=== PATIENT | female | born 1945 | race Caucasian/White ===

== ENCOUNTER 2017-12-24 14:14 | Observation (INO) | payer MEDICARE, BC ==
[~2017-12-24 14:14] MED LIST: Iopamidol 370 76% 100 ML VIAL ONE
[2017-12-24 15:10] LABS: #Lymphocytes 0.8 thou/uL (1.20-3.40); #Monocytes 0.3 thou/uL (0.11-0.59); #Neutrophils 4.2 thou/uL (1.40-6.50); %Basophils 0.8 % (0.0-1.0); %Eosinophils 0.2 % (0.0-10.0); %Lymphocytes 15.4 % (21.0-51.0); %Monocytes 6.3 % (0.0-10.0); %Neutrophils 77.3 % (42.0-75.0); Hemoglobin 12.7 g/dL (12.0-16.0); Mean Corpuscular HGB CONC 33.6 g/dL (32.0-36.0); Mean Corpuscular Volume 86.3 fl (81.0-99.0); Mean Platelet Volume 8.2 fL (7.4-10.4); Platelet Count 211 thou/uL (130-400); RBC Distribution Width 15.7 % (11.5-14.5); Red Blood Cell (RBC) Count 4.39 mill/uL (4.20-5.40); White Blood Cell (WBC) Count 5.5 thou/uL (4.8-10.8)
[2017-12-24 15:26] LABS: ALT (SGPT) 16 U/L (8-55); AST (SGOT) 17 U/L (5-34); Albumin 3.4 g/dL (3.4-4.8); Alkaline Phosphatase 42 U/L (40-150); Anion Gap 14 mmol/L (10-20); BUN (Urea Nitrogen) 13 mg/dL (9.8-20.1); Bilirubin, Total 0.8 mg/dL (0.2-1.2); Calc. Creatinine Clearance 0 mL/min (70-130); Calcium 9.5 mg/dL (7.8-10.44); Carbon Dioxide 28 mmol/L (23-31); Chloride 95 mmol/L (98-107); Estimated GFR-MDRD 82; Globulin 2.6 g/dL (2.4-3.5); Glucose 97 mg/dL (83-110); Potassium 3.3 mmol/L (3.5-5.1); Sodium 134 mmol/L (136-145)
[2017-12-24 15:28] LABS: CKMB 0.5 ng/mL (0-6.6); Troponin I Less than 0.010 ng/mL (< 0.028)
--- NOTE | 2017-12-24 16:03 | RAD ---
SEMI UPRIGH PORTABLE CHEST: History: 72-year-old female with chest pain and shortness of breath. FINDINGS: Right subclavian catheter and injection port. Bilateral pleural effusions and costophrenic angle blun ting, worse on the left side. Mid and upper visualized lungs are clear. Heart size is within the uppe r range of normal limits. IMPRESSION: Bilateral pleural effusions and costophrenic angle blunting, greater on the left side. No old films a vailable for comparison. Some minimal underlying pulmonary parenchymal changes cannot be excluded bec ause of the effusions. Depending upon concern, consider short term follow up to include upright PA an d lateral chest whenever the patient can undergo that study. POS: KETTY
--- NOTE | 2017-12-24 17:49 | CT ---
CTA OF THE CHEST WITH CONTRAST: Comparison: None. History: Intermittent chest pain for one month and shortness of breath. Technique: Multiple contiguous axial images were obtained in a CTA of the chest with contrast perform ed per pulmonary embolism protocol. 3D oblique reformats and direct coronal reformats were performed. FINDINGS: The pulmonary arteries are well opacified without filling defects to suggest pulmonary emboli. The he art is normal in size without focal cardiac abnormality. There are small to moderate bilateral pleural effusions with adjacent atelectasis. No pneumothorax is seen. No focal infiltrates or suspicious masses are seen in the lungs. Degenerative changes are seen in the spine. There is a Mediport with its tip in the superior vena cav a. There is a 2.4 cm mass in the central aspect of the spleen which is nonspecific. There is also hyp odensity of the left kidney partially visualized which may represent a cyst. There are multiple calcifications in the right kidney and a calcified mass in the right kidney which is well circumscribed. IMPRESSION: 1. No evidence of pulmonary thromboembolism. 2. Bilateral pleural effusions with adjacent atelectasis. 3. There appears to be an enhancing splenic mass. This is not completely evaluated and a CT of the ab domen and pelvis with contrast is recommended for better evaluation. This could be performed on a non -emergent outpatient basis and would need to be performed at least 24 hours after administration of I V contrast given for this examination. POS: KETTY
[2017-12-24 19:03] LABS: Troponin I Less than 0.010 ng/mL (< 0.028)
[2017-12-24 21:11] VITALS: BMI 30.3
[2017-12-24 21:56] LABS: Troponin I 0.017 ng/mL (< 0.028)
[2017-12-24] MEDS ORDERED: Ondansetron ODT 4 MG TAB PO PRN (23:25)
--- NOTE | 2017-12-25 04:29 | HP-2 ---
DATE OF ADMISSION: 12/24/2017 CODE STATUS: FULL. PRIMARY CARE PHYSICIAN: [facility], transfer from [facility] ER. ATTENDING: Garret Birmingham MD RESIDENT: Katarina Donald MD HISTORIAN: The patient and daughter. SPECIALIST: Bayron Pickett MD, Oncology CHIEF COMPLAINT: BROUSSARD/chest pain. HISTORY OF PRESENT ILLNESS: This is a 72-year-old female with a past medical history of stage III ovarian cancer who presents with a 1-month history of progressive BROUSSARD and chest pain. She describes her chest pain as substernal pressure that has been going on for approximately 1 month. She has noticed some shortness of breath with exertion and chest like pressure, also with exertion. This has been occurring more often over the past month. She also endorses a chronic cough and sputum-like production that is a yellow/white over the past several weeks. She takes Avastin and Taxotere as chemo for her stage 3 ovarian cancer. She also states that she has been concerned for possible cardiotoxicity from these medications. Her BROUSSARD has increased in number of times throughout the day, worse with exertion, and relieved by rest. She also has a history of bilateral pleural effusions. She also complains of chronic nausea and vomiting associated with chemo, not associated with her chest pressure and BROUSSARD. She also endorses that her last CA-125 was elevated and that she supposed to get an additional 1 drawn on Monday and was asking if we could draw that lab value here for her. Her last chemo was on 12/19/2017. She had a prior CT chest, abdomen, and pelvis on 10/29/2017. See below for details. In the ER, she was given aspirin 325 mg. PAST MEDICAL HISTORY: 1. Stage III ovarian cancer. 2. Hypertension. PAST SURGICAL HISTORY: 1. Hysterectomy with debulking surgery 3-1/2 years ago with colostomy, left side. 2. Tonsillectomy. ALLERGIES: 1. BENADRYL. 2. PENICILLIN. 3. ERYTHROMYCIN. 4. ADHESIVE TAPE. MEDICATIONS: 1. Avastin. 2. Taxotere. 3. Atenolol. 4. Potassium chloride. 5. Magnesium. 6. Lasix ?. SOCIAL HISTORY: Smoked for 14 years in the home. Denies alcohol and drug use. REVIEW OF SYSTEMS: General: Denies fevers or chills. HEENT: Denies vision changes or eye pain, nasal congestion or rhinorrhea. Respiratory: Endorses chronic cough with sputum production that is yellow white, nonbloody. Endorses wheezing. Endorses dyspnea on exertion and shortness of breath. Cardiovascular : Endorses chest pain/pressure. Denies palpitations or edema. Gastrointestinal: Endorses chronic nausea and vomiting. Denies diarrhea or constipation. Genitourinary: Denies incontinence, dysuria. Skin: Denies rashes or lesions. Musculoskeletal: Denies pain or tenderness. Neurologic: Denies weakness or numbness. Psychiatric: Denies anxiety or depression. PHYSICAL EXAMINATION: VITAL SIGNS: Blood pressure 118/57, pulse 79, respiratory rate 16, temperature 98.2, pulse ox 96% on room air, current weight 73 kilograms. GENERAL: Alert and oriented x4, in no apparent distress. Appropriately interactive. EYES: Pupils equal, round, and reactive to light and accommodation. Extraocular muscles are intact. ENT: Nasal mucosa and oropharynx within normal limit. NECK: Supple. No lymphadenopathy or thyromegaly. CARDIOVASCULAR: Regular rate and rhythm. No murmur, rub, or gallop. RESPIRATORY: Decreased breath sounds bilaterally in the lung bases. ABDOMEN: Soft, nontender to palpation. Left-sided colostomy bag. No masses or distention. EXTREMITIES: No clubbing or cyanosis. 1+ pitting edema. MUSCULOSKELETAL: Structure within normal limits. Tone within normal limits. NEUROLOGIC: No focal deficits. GCS 15. PSYCHIATRIC: Appropriate. LABORATORY DATA: 1. CBC: 5.5, 12.7, 37.9, 211,000. 2. CMP: 134, 3.3, 95, 28, 13.7, 97. GFR 82. 3. AST, ALT, alkaline phosphatase were 17, 16, 42. 4. Calcium, total protein, albumin were 9.5, 6, 3.4. 5. Total bilirubin 0.8. 6. Troponin negative x3. 7. CK-MB 0.5. IMAGIN. CTA of the chest, bilateral pleural effusions, no pulmonary embolus, pleural effusions with adjacent atelectasis. 2. CTA abdomen enhancing splenic mass, measuring 2.[address] chest, abdomen, and pelvis from 10/29/2017 from [facility] endorses at that time, new bilateral pleural effusions, which raises question for metastatic disease in the absence of other pulmonary parenchymal abnormalities, peritoneal stranding within the abdomen and minimal pelvic ascites. She also raised the possibility of metastatic disease, individual peritoneal implants do appear slightly smaller. The spleen mass at that time measured 2 cm. ASSESSMENT AND PLAN: This is a 72-year-old female with past medical history of stage III of ovarian cancer, presents with dyspnea on exertion and chest pain, admitted for atypical chest pain. 1. Atypical chest pain. The patient was admitted to telemetry observation. She has a heart score of 4. Due to her risk factors, we will order a pharmacological stress test in the morning and have her be n.p.o. at midnight. We will also order a TSH, lipid profile, as well as trend her troponins and we will check an echo on her in the morning due to worsening bilateral pleural effusions which were first noted on her CTA of the chest, abdomen, and pelvis done at [facility] in 10/2017. We will also check mag and phos on the patient as she can sometimes have low magnesium. 2. Bilateral pleural effusions. The patient is concerned about the medication she is taking for chemo that could be causing cardiotoxicity, adn the avastin for her chemo could be causing these pleural effusions due to possibly cardiotoxicity based on the literature. We will further evaluate the side effects of her chemotherapy medications. Differential for these bilateral pleural effusions could be malignant versus cardiac or a pulmonary etiology. Her BNP was within normal limits. As stated above, we will check an echo and consider further discussing the chemo medications with her oncologist, Dr. Pickett. We will consider a pulmonary consult/thoracentesis if the cardiac workup is negative. 3. Hypertension, controlled. We will restart the patient's home medications. 4. Hypokalemia. We will replace her potassium and restart her home meds and recheck her potassium in the morning as well as check magnesium and phosphorous. 5. Mild hyponatremia. We will continue to monitor. 6. Stage III ovarian cancer with suggested metastatic implants on prior CT from October as well as CT today with a splenic mass increasing in size. We will consult Dr. Pickett with Oncology. Of note, the patient is status post hysterectomy, oophorectomy with colostomy on the left side and debulking surgery 3-1/2 years ago after her diagnosis in 05/2014, ovarian cancer. DISPOSITION AND LENGTH OF HOSPITAL STAY: 1-2 days. Symptomatic medications will be provided. History and physical exam as well as management discussed with Dr. Birmingham. KRYSTIN
[2017-12-25 05:11] LABS: #Lymphocytes 0.8 thou/uL (1.20-3.40); #Monocytes 0.3 thou/uL (0.11-0.59); #Neutrophils 2.5 thou/uL (1.40-6.50); %Basophils 0.3 % (0.0-1.0); %Eosinophils 0.1 % (0.0-10.0); %Lymphocytes 21.6 % (21.0-51.0); %Monocytes 8.2 % (0.0-10.0); %Neutrophils 69.8 % (42.0-75.0); Mean Corpuscular HGB CONC 33.9 g/dL (32.0-36.0); Mean Corpuscular Hemoglobin 30.6 pg (27.0-31.0); Mean Corpuscular Volume 90.2 fl (81.0-99.0); Mean Platelet Volume 7.7 fL (7.4-10.4); Platelet Count 179 thou/uL (130-400); RBC Distribution Width 16.9 % (11.5-14.5); Red Blood Cell (RBC) Count 3.92 mill/uL (4.20-5.40); White Blood Cell (WBC) Count 3.5 thou/uL (4.8-10.8)
[2017-12-25 05:32] LABS: Anion Gap 10 mmol/L (10-20); BUN (Urea Nitrogen) 10 mg/dL (9.8-20.1); Calc. Creatinine Clearance 96 mL/min (70-130); Carbon Dioxide 31 mmol/L (23-31); Cardiac Risk 3.8 (Less than 4.5); Chloride 95 mmol/L (98-107); Cholesterol 136 mg/dl (< 200 Desired); Estimated GFR-MDRD Greater than 90; Glucose 89 mg/dL (83-110); HDL Cholesterol 36 mg/dL (>60 Neg Risk); LDL Cholesterol, Calculated 79 mg/dL; Magnesium 1.5 mg/dL (1.6-2.6); Phosphorus 3.7 mg/dL (2.3-4.7); Potassium 3.2 mmol/L (3.5-5.1); Sodium 133 mmol/L (136-145); Triglycerides 107 mg/dL (Less than 150)
[2017-12-25] MEDS ORDERED: Potassium Chloride 40 MEQ in Sodium Chloride 0.9% 500 ML IVPB SCH (06:15)
[2017-12-25] MEDS ORDERED: Atenolol 50 MG TAB PO SCH (09:00)
[2017-12-25] MEDS ORDERED: Famotidine/PF 20 mg/2ml Vial SLOW IVP SCH (09:00)
[2017-12-25] MEDS ORDERED: Chlorthalidone 25 MG TAB PO SCH (09:00)
[2017-12-25] MEDS ORDERED: Magnesium Oxide 400 MG TAB PO SCH (09:00)
--- NOTE | 2017-12-25 09:07 | PDOC.FM ---
- Subjective Subjective: Patient is lying in her bed comfortably. Reports she only has chest heaviness with exertion. Not reporting any pain at the moment. Does endorse mild nausea but states this is her baseline from Chemotherapy. No acute events overnight. - Objective MAR Reviewed: Yes Vital Signs & Weight: Vital Signs (12 hours) Temp Pulse Resp BP Pulse Ox 12/25/17 07:42 98.4 F 83 16 118/61 98 12/25/17 04:31 97.6 F 79 16 123/63 96 12/24/17 23:54 97.3 F L 74 14 121/61 97 Weight Weight 75.206 kg I&O: 12/24/17 12/25/17 12/26/17 06:59 06:59 06:59 Intake Total 200 Balance 200 Result Diagrams: 12/25/17 04:33 12/25/17 04:33 <Kelly Billings - Last Filed: 12/25/17 12:07> - Objective Vital Signs & Weight: Vital Signs (12 hours) Temp Pulse Resp BP Pulse Ox 12/25/17 08:03 98.4 F 83 16 12/25/17 07:42 98.4 F 83 16 118/61 98 12/25/17 04:31 97.6 F 79 16 123/63 96 Weight Weight 75.206 kg I&O: 12/24/17 12/25/17 12/26/17 06:59 06:59 06:59 Intake Total 200 150 Balance 200 150 Result Diagrams: 12/25/17 04:33 12/25/17 04:33 <Jarocho Headley - Last Filed: 12/25/17 14:00> Phys Exam - Physical Examination Constitutional: NAD HEENT: moist MMs Neck: no nodes, no JVD, supple Respiratory: no wheezing, no rales, no rhonchi, clear to auscultation bilateral Cardiovascular: RRR, no significant murmur Gastrointestinal: soft, non-tender Musculoskeletal: pulses present Psychiatric: normal affect, A&O x 3 Skin: cap refill <2 seconds <Kelly Billings - Last Filed: 12/25/17 12:07> Dx/Plan (1) Chest pain Code(s): R07.9 - CHEST PAIN, UNSPECIFIED Status: Acute (2) Pleural effusion Code(s): J90 - PLEURAL EFFUSION, NOT ELSEWHERE CLASSIFIED Status: Acute (3) Ovarian cancer Status: Acute (4) Hypertension Code(s): I10 - ESSENTIAL (PRIMARY) HYPERTENSION Status: Acute (5) Splenic mass Code(s): R16.1 - SPLENOMEGALY, NOT ELSEWHERE CLASSIFIED Status: Acute - Plan Plan: Typical Chest Pain - r/o stable angina with stress test. - echo to evaluate for chemo induced cardiomyopathy - troponins negative x3 Bilateral Pleural Effusion - likely related to chemotherapy drugs - not hypoxic at rest, will further evaluate with walking o2 trial - Will give lasix 40mg IV x1 and evaluate for improvement Splenic Mass - enlarged from last scan - Ca125 pending Stage 3 Ovarian Cancer - on chemotherapy, to be given on Monday - Sees Dr. Pickett, oncologist HTN - continue Clorthalidone and Atenolol <Kelly Billings - Last Filed: 12/25/17 12:07> Attending Addendum - Attending Addendum I personally evaluated the patient and discussed the management with Dr. Billings I agree with the History, Examination, Assessment and Plan documented above with any addition or exceptions noted below. Ca-125 noted 94 Patient resting comfortably back in room s/p stress testing, sating well on room air will check O2 s/p ambulation and dismissal pending Stress testing results. Patient for chemotherapy tomorrow will be followed up as outpatient and [facility]. <Jarocho Headley - Last Filed: 12/25/17 14:00>
[2017-12-25] MEDS ORDERED: Furosemide 40 MG/4 ML VIAL SLOW IVP SCH (09:15)
[2017-12-25] MEDS ORDERED: Lidocaine 4% Cream 5 GM TUBE w/ Tegaderm TOP PRN (09:39)
[2017-12-25] MEDS: Potassium Chloride 10 MEQ TAB PO SCH ×2 (09:54→16:39)
[2017-12-25] MEDS ORDERED: ADENOSINE 60 MG/20 ML VIAL ONE (12:31)
--- NOTE | 2017-12-25 15:18 | NM ---
NUCLEAR MEDICINE CARDIAC PERFUSION EXAMINATION WITH EJECTION FRACTION: HISTORY: A 72-year-old female with chest pain, hypertension, and shortness of breath. TECHNIQUE: A single-day nuclear medicine cardiac perfusion examination was performed. Rest images were obtained using 11 millicuries of technetium 99m sestamibi. Stress images were obtained using 32 millicuries of technetium 99m sestamibi and adenosine. FINDINGS: Tomographic images show no fixed or reversible perfusion defects. Gated SPECT images show normal wal l motion with an ejection fraction of greater than 70%. EDV is 41 mL. LHR is 0.4. TID is 1.1. IMPRESSION: No evidence of ischemia. POS: KETTY
[2017-12-25 19:57] VITALS: BP 117/61; TEMP 98.6
[2017-12-25] MEDS ORDERED: Atorvastatin Calcium 40 MG TAB PO SCH (21:00)
--- NOTE | 2017-12-26 06:37 | EKG ---
Test Reason : ROUTINE Blood Pressure : / mmHG Vent. Rate : 076 BPM Atrial Rate : 076 BPM P-R Int : 194 ms QRS Dur : 068 ms QT Int : 350 ms P-R-T Axes : 044 029 012 degrees QTc Int : 393 ms Normal sinus rhythm Low voltage QRS Cannot rule out Anterior infarct , age undetermined Abnormal ECG No previous ECGs available Confirmed by STEFFEN MORENO ([id number]) on 12/26/2017 6:36:38 AM Referred By: YESENIA Confirmed By:STEFFEN MORENO
--- NOTE | 2017-12-26 14:30 | DIS-2 ---
DATE OF ADMISSION: 12/24/2017 DATE OF DISCHARGE: 12/25/2017 RESIDENT: Kelly Billings D.O. ADMITTING ATTENDING: Garret Birmingham M.D. DISCHARGE ATTENDING: Javi Donnelly M.D. CONSULTS: None. PROCEDURES/IMAGIN. Chest x-ray with bilateral pleural effusions, left greater than right, underlying pulmonary parenchymal changes, possible. 2. Chest and thorax CTA - bilateral pleural effusions with adjacent atelectasis , enhancing spleen mass measuring 2.4 cm. 3. Echocardiogram - ejection fraction 50% to 55% and E/A flow reversal suggestive of diastolic dysfunction. 4. EKG normal sinus rhythm, low voltage QRS, nonspecific ST changes. 5. Nuclear medicine stress test with no evidence of reversible ischemia. PRIMARY DIAGNOSES: 1. Typical chest pain. 2. Bilateral pleural effusions. 3. Diastolic congestive heart failure. 4. Splenic mass. 5. Stage III ovarian cancer. 6. Hypertension. SECONDARY DIAGNOSIS: None. DISCHARGE MEDICATIONS: 1. Potassium chloride 30 mEq p.o. b.i.d. 2. Magnesium 400 mg p.o. daily. 3. Atenolol/chlorthalidone 50/25 mg one tab p.o. daily. 4. Lasix 20 mg p.o. daily. 5. Atorvastatin 40 mg p.o. at bedtime. 6. Avastin, chemotherapy. 7. Taxotere, chemotherapy. DISCONTINUED MEDICATIONS: None. HISTORY OF PRESENT ILLNESS AND HOSPITAL COURSE: The patient is a 72-year-old female with past medical history of stage III ovarian cancer, on chemotherapy treatment, who presented with a one month history of progressive dyspnea on exertion and chest pain. The patient also has history of bilateral pleural effusions seen on prior x-rays initially in August. The patient was admitted to telemetry for observation. She had a heart score of 4 and with her risk factors, performed a stress test to rule out kidney disease. Chest x-ray confirms bilateral pleural effusions, although there are no records prior bilateral effusions at this hospital so comparison is not available. The patient had a CTA to rule out pulmonary embolus, which was negative. Bilateral pleural effusions are seen in that image study as well and stable. A splenic mass that is increasing in size from prior CT done in October is seen as well. With history of dyspnea on exertion as well as possibility of cardiac toxicity from chemotherapy agents, and echo was performed to evaluate cardiac function and findings are suggestive of diastolic dysfunction. The patient was given 40 mg IV dose of Lasix and discharged home on 20 mg p.o. daily of Lasix to help with diuresis of pleural effusion and diastolic congestive heart failure. A walking O2 trial was also performed and patient found to be hypoxic into the 80s with minimal exertion, walking about 10 feet. Case management help to obtain home oxygen for this issue. This is likely secondary to worsening pleural effusion. The patient is scheduled for her chemotherapy in 2 days. Recommended repeat renal function labs after adding Lasix. Pertinent lab findings on this admission include an elevated D-dimer was 2.35, mild hyponatremia with a sodium of 133, hypokalemia at 3.2 and hypomagnesemia at 1.5. Magnesium and potassium replaced during this stay. Consider increasing home magnesium and potassium. The patient will need follow up labs in 1 to [address] visit[address] Pickett, oncologist, was notified of the patient's hospitalization. All of her chronic medical conditions were treated with home medications and remained stable during hospitalization. DISPOSITION: Stable. DISCHARGE INSTRUCTIONS: 1. Location: Home. 2. Diet: Heart healthy. 3. Activity: As tolerated, where portable oxygen when walking. 4. Followup: Follow up with oncologist in 1 to 2 days for a lab repeat and chemotherapy. MTDD
== END 2017-12-25 20:21 | disposition home or self-care (01) ==
LOC: SCSER 14:14 → 2SW 18:06
PROVIDERS: ADMIT Family Medicine; ATTEND Family Medicine
DX: R07.89 Other chest pain (principal); C56.9 Malignant neoplasm of unspecified ovary; I10 Essential (primary) hypertension; J90 Pleural effusion, not elsewhere classified; R16.1 Splenomegaly, not elsewhere classified; E87.6 Hypokalemia; E87.1 Hypo-osmolality and hyponatremia; Z87.891 Personal history of nicotine dependence; Z79.899 Other long term (current) drug therapy; Z88.0 Allergy status to penicillin; Z88.1 Allergy status to other antibiotic agents; Z88.8 Allergy status to other drugs, medicaments and biological substances; Z90.710 Acquired absence of both cervix and uterus; Z90.89 Acquired absence of other organs; Z91.048 Other nonmedicinal substance allergy status; Z90.721 Acquired absence of ovaries, unilateral; Z93.3 Colostomy status
CPT/HCPCS: 71045; 71275; 78452; 80048; 80053; 80061; 82553; 83735; 83880; 84100; 84443; 84484 ×2; 85025 ×2; 85379; 86304; 93005; 93017; 93306; 96365; 96366; 96367; 96375; 99285; A9500; G0378; 36415; 93010; A4216; J0153; J1642; J1940; J3475; J3480; J7050; S0028

== ENCOUNTER 2018-02-28 10:52 | Inpatient (IN) | payer MEDICARE, BC ==
[2018-02-28 11:47] LABS: Hemoglobin 11.5 g/dL (12.0-16.0); Mean Corpuscular HGB CONC 32.2 g/dL (32.0-36.0); Mean Corpuscular Hemoglobin 30.8 pg (27.0-31.0); Mean Corpuscular Volume 95.8 fl (81.0-99.0); Platelet Count 192 thou/uL (130-400); RBC Distribution Width 21.7 % (11.5-14.5); Red Blood Cell (RBC) Count 3.72 mill/uL (4.20-5.40); White Blood Cell (WBC) Count 25.6 thou/uL (4.8-10.8)
--- NOTE | 2018-02-28 11:51 | RAD ---
SINGLE VIEW CHEST: Date: 02/28/18 COMPARISON: 12/24/17. HISTORY: Shortness of breath over last 2 months. Patient has ovarian cancer and is on chemotherapy. FINDINGS: Single view of the chest shows an enlarged but stable cardiomediastinal silhouette. There is a MediPo rt, unchanged in position. There appear to be small bilateral pleural effusions. Atelectasis is seen in the right lung base. IMPRESSION: Bilateral pleural effusions. POS: KETTY
[2018-02-28 12:07] LABS: Band 22 % (5-11); Lymphocytes 6 % (21-51); Monocytes 10 % (0-10); Neutrophil 61 % (42-75); Reactive Lymphocytes 1 % (0-10)
[2018-02-28 12:08] LABS: MDiff Complete? YES
[2018-02-28 12:18] LABS: ALT (SGPT) 8 U/L (8-55); AST (SGOT) 17 U/L (5-34); Albumin 3.6 g/dL (3.4-4.8); Alkaline Phosphatase 182 U/L (40-150); Anion Gap 13 mmol/L (10-20); BUN (Urea Nitrogen) 7 mg/dL (9.8-20.1); Bilirubin, Total 0.5 mg/dL (0.2-1.2); CK (CPK) Less than 9 U/L (29-168); Calc. Creatinine Clearance 0 mL/min (70-130); Calcium 9.6 mg/dL (7.8-10.44); Carbon Dioxide 30 mmol/L (23-31); Chloride 99 mmol/L (98-107); Estimated GFR-MDRD 81; Globulin 2.8 g/dL (2.4-3.5); Glucose 104 mg/dL (83-110); Potassium 3.5 mmol/L (3.5-5.1); Protein, Total 6.4 g/dL (6.0-8.3); Sodium 138 mmol/L (136-145)
[2018-02-28 12:22] LABS: CKMB 0.2 ng/mL (0-6.6); Troponin I Less than 0.010 ng/mL (< 0.028)
--- NOTE | 2018-02-28 14:14 | CT ---
CT PULMONARY ANGIOGRAM WITH IV CONTRAST AND 3D POSTPROCESSING: Date: 02/28/18 HISTORY: Shortness of breath. FINDINGS: Comparison made with exam of 12/24/17. The pulmonary arterial vasculature is well opacified without filling defects to suggest pulmonary emb olism. The thoracic aorta is well opacified without aneurysm or dissection. There are moderate sized bilateral pleural effusions with adjacent atelectatic changes/infiltrates. There are degenerative brittney nges in the spine. A 2.5 cm splenic lesion is again noted. IMPRESSION: No CT evidence of pulmonary embolism. POS: OFF
[2018-02-28 14:27] LABS: Bilirubin Negative (Negative); Blood, Urine Negative (Negative); Clarity CLEAR (Clear); Glucose, Urine (Dipstick) Negative (Negative); Leukocyte Small (Negative); Nitrite Negative (Negative); Protein, Urine (Dipstick) Trace mg/dL (Neg-Trace); Specific Gravity, Urine 1.028 (1.002-1.036); pH, Urine 7.5 (5.0-9.0)
[2018-02-28 14:30] LABS: Bacteria/HPF None Seen HPF (None Seen); Hyaline Casts/LPF 0-3 HYALINE CAST LPF (0-3 Hyaline); Pathc Cast-AUWi Flag 0.43 (0-2.49); Squamous Epithelial 0-3 HPF (0-3); WBC/HPF 21-50 HPF (0-3)
[2018-02-28] MEDS ORDERED: Bisacodyl 5 MG TAB PO PRN (14:56)
[2018-02-28] MEDS ORDERED: Acetaminophen 650 MG Suppository PR PRN (14:56)
[2018-02-28] MEDS ORDERED: Vancomycin HCl 1 GM in Premix Bag 1 BAG IVPB SCH (15:00)
[2018-02-28] MEDS ORDERED: Furosemide 40 MG/4 ML VIAL SLOW IVP SCH (15:30)
--- NOTE | 2018-02-28 16:55 | HP ---
PRIMARY CARE PHYSICIAN: Ceasar Parsons M.D. at [facility]. CHIEF COMPLAINT: Shortness of breath. HISTORY OF PRESENT ILLNESS: Ms. Granados is a pleasant 72-year-old lady, who was seen at [facility] on 02/28/2018. She reports that she was diagnosed with ovarian cancer about 3-1/2 years ago. She was initially treated with Taxotere and Avastin, recently switched to topotecan. She completed 2 cycles of topotecan. Her last chemotherapy was 2 days ago at [facility]. During the first week of December, she went on a trip to [place]. She felt short of breath. She reported that, over the last 2 months, she has had cough, shortness of breath, and postnasal drip. She reports shortness of breath with exertion. She also reports difficulty lying flat. She was admitted to [facility] in early December 2017. At that time, she had an echocardiogram, which showed ejection fraction 50%-55% and E-A flow reversal suggestive of diastolic dysfunction. She was also found to have bilateral pleural effusions with adjacent atelectasis. She had a normal nuclear medicine stress test. She reports that she continued to have shortness of breath on and off, having some good days and some not so good days. She reports that her shortness of breath was worsening over the last day or two. Today morning, she also spiked a fever, daughter reports that she had a temperature of close to 101 degrees Fahrenheit at home. Patient reports decreased eating. She denies any nausea, vomiting, diarrhea, confusion, or urinary symptoms. REVIEW OF SYSTEMS: The following complete review of systems was negative, unless otherwise mentioned in the HPI or below: Constitutional: Weight loss or gain, ability to conduct usual activities. Skin: Rash, itching. Eyes: Double vision, pain. ENT/Mouth: Nose bleeding, neck stiffness, pain, tenderness. Cardiovascular: Palpitations, dyspnea on exertion, orthopnea. Respiratory: Shortness of breath, wheezing, cough, hemoptysis, fever, or night sweats. Gastrointestinal: Poor appetite, abdominal pain, heartburn, nausea, vomiting, constipation, or diarrhea. Genitourinary: Urgency, frequency, dysuria, nocturia. Musculoskeletal: Pain, swelling. Neurologic/Psychiatric: Anxiety, depression. Allergy/Immunologic: Skin rash, bleeding tendency. PAST MEDICAL HISTORY: Significant for stage III ovarian cancer, hypertension, and probable diastolic congestive heart failure. PAST SURGICAL HISTORY: Significant for hysterectomy with debulking surgery 3-1/ 2 years ago with left-sided colostomy. She also had tonsillectomy. FAMILY HISTORY: Significant for breast cancer in her mother. SOCIAL HISTORY: The patient denies tobacco use, alcohol use, or recreational drug use. ALLERGIES: BENADRYL, PENICILLIN, ERYTHROMYCIN, and ADHESIVE TAPE. CURRENT MEDICATIONS: Include potassium chloride 30 mEq 2 times a day, magnesium 400 mg daily, atenolol/chlorthalidone 50/25 mg daily, Lasix 20 mg daily, atorvastatin 40 mg at bedtime, and topotecan. CODE STATUS: I discussed her code status. She is FULL CODE. Surrogate decision maker is her . PHYSICAL EXAMINATION: GENERAL: Ms. Granados is awake and alert, not in acute distress. VITAL SIGNS: Blood pressure is 147/80 and pulse is 55. She is breathing at rate of 26 and saturating 96% on 4 liters of oxygen. Earlier, she had a pulse of 109 at 12:30 hours today. She is currently afebrile. EYES: No scleral icterus. No conjunctival pallor. ENT: Moist mucosal membranes, no oropharyngeal erythema or exudates. NECK: Supple, nontender, normal range of movement. Trachea is midline. There is no jugular venous distention. RESPIRATORY: Accessory muscles of breathing are mildly active. Chest wall movements are symmetric bilaterally. Lung examination reveals a few bibasilar crackles. CARDIOVASCULAR: S1 and S2 are heard, regular. LUNGS: Peripheral pulses palpable. No carotid bruit, no pericardial rub. ABDOMEN: Soft, nontender, bowel sounds are heard, no hepatomegaly, no splenomegaly. L sided colostomy. NEUROLOGIC: Cranial nerves II-XII intact. SKIN: No rashes or subcutaneous nodules. She has trace bilateral lower extremity edema. MUSCULOSKELETAL: Power is 5/5 in all 4 extremities. LYMPHATIC: No cervical lymphadenopathy. PSYCHIATRIC: Normal mood, normal affect, patient is oriented to person, place, and time. LABORATORY DATA: Ms. Granados's labs and investigations were reviewed. I reviewed her electrocardiogram, which showed normal sinus rhythm, no ST changes to suggest an acute coronary syndrome. I also reviewed her chest x-ray, which shows small bilateral pleural effusions. She also has fluid in the horizontal fissure. She also had CT angiogram of the chest, which did not show any pulmonary embolism. She has leukocytosis with 25,600 white cells, of which 61% are neutrophils and 22% are bands. She has normocytic anemia with hemoglobin 11.5, normal platelet count, elevated alkaline phosphatase of 182, otherwise unremarkable comprehensive metabolic profile and a normal troponin I. Lactic acid is normal. Urinalysis is pending. ASSESSMENT AND PLAN: Ms. Granados is a pleasant 72-year-old lady, who was seen at [facility] on 02/28/2018. Her problem list includes: 1. Sepsis: Ms. Granados's presentation is consistent with sepsis, likely source of infection in the upper respiratory tract or urinary tract. I will await the urinalysis results. We will also await blood cultures. We will start from broad-spectrum antibiotics in the form of vancomycin and meropenem. I discussed the chance of cross reactivity, given her PENICILLIN allergy. Her main allergic reaction to PENICILLIN is hives, she is making an informed decision to proceed with meropenem. We will hold off on intravenous fluids at this time, since patient is hemodynamically stable and may actually be in congestive heart failure exacerbation. 2. Diastolic congestive heart failure exacerbation: The patient appears to be in congestive heart failure exacerbation. We will administer furosemide. We will check BNP. Her BNP was normal in December, even though her presentation was similar at that time. We will administer 1-time dose of Lasix 40 mg intravenously and evaluate the response. 3. Hypertension: Monitor vital signs, titrate antihypertensives as needed. 4. Elevated alkaline phosphatase: Her alkaline phosphatase level was normal in the past. We will recheck alkaline phosphatase level in the morning. Many thanks for allowing me to participate in Ms. Granados's care. Please feel free to contact me with any questions or concerns. LEVEL OF RISK: High. LEVEL OF COMPLEXITY: High. MTDD
[2018-02-28 18:44] VITALS: BMI 29.0
[2018-02-28] MEDS: Meropenem 1 GM in Sodium Chloride 0.9% 100 ML IVPB SCH (21:10)
[2018-03-01] MEDS: Meropenem 1 GM in Sodium Chloride 0.9% 100 ML IVPB SCH ×3 (05:52→21:26)
[2018-03-01 07:53] LABS: Anion Gap 15 mmol/L (10-20); BUN (Urea Nitrogen) 9 mg/dL (9.8-20.1); Calc. Creatinine Clearance 82 mL/min (70-130); Carbon Dioxide 30 mmol/L (23-31); Chloride 95 mmol/L (98-107); Estimated GFR-MDRD 81; Glucose 98 mg/dL (83-110); Sodium 137 mmol/L (136-145)
[2018-03-01 08:17] LABS: Band 4 % (5-11); Hemoglobin 10.5 g/dL (12.0-16.0); Lymphocytes 6 % (21-51); MDiff Complete? YES; Mean Corpuscular HGB CONC 32.2 g/dL (32.0-36.0); Mean Corpuscular Hemoglobin 30.2 pg (27.0-31.0); Mean Corpuscular Volume 93.9 fl (81.0-99.0); Mean Platelet Volume 8.1 fL (7.4-10.4); Monocytes 2 % (0-10); Neutrophil 88 % (42-75); Platelet Count 175 thou/uL (130-400); RBC Distribution Width 22.2 % (11.5-14.5); Red Blood Cell (RBC) Count 3.47 mill/uL (4.20-5.40); White Blood Cell (WBC) Count 23.9 thou/uL (4.8-10.8)
[2018-03-01] MEDS ORDERED: Potassium Chloride 20 MEQ TAB PO SCH (09:00)
[2018-03-01] MEDS: Acetaminophen 325 MG TAB PO PRN (09:31)
[2018-03-01] MEDS: Enoxaparin Sodium 40 MG/0.4 ML SYRINGE SC SCH (09:31)
[2018-03-01] MEDS ORDERED: Potassium Chloride 10 MEQ TAB PO SCH ×2 (10:00→21:00)
[2018-03-01] MEDS ORDERED: Chlorthalidone 25 MG TAB PO SCH (10:00)
[2018-03-01] MEDS ORDERED: Magnesium Oxide 250 MG TAB PO SCH (10:00)
[2018-03-01] MEDS ORDERED: Atenolol 50 MG TAB PO SCH (10:00)
[2018-03-01] MEDS ORDERED: Multivit, Therapeutic 1 TAB PO SCH (10:00)
--- NOTE | 2018-03-01 10:38 | PDOC.PN ---
- Subjective Encounter Start Date: 03/01/18 Encounter Start Time: 07:40 Pt seen for followup re: sepsis. Had fever last night. No nausea or vomiting. Cough+. No urinary symptoms. - Objective Resuscitation Status: Resuscitation Status FULL:Full Resuscitation MAR Reviewed: Yes Vital Signs & Weight: Vital Signs (12 hours) Temp Pulse Resp BP BP Pulse Ox 03/01/18 09:49 109 H 100/68 03/01/18 08:00 98.7 F 109 H 18 100/68 94 L 03/01/18 04:44 98.7 F 100 18 100/65 92 L 03/01/18 00:30 98.8 F 03/01/18 00:00 100.1 F H 102 H 18 95/64 94 L Weight Admit Weight 158 lb 6 oz Weight 158 lb 6 oz I&O: 02/28/18 03/01/18 03/02/18 06:59 06:59 06:59 Intake Total 540 Balance 540 Result Diagrams: 03/01/18 03:30 03/01/18 06:30 Phys Exam - Physical Examination Constitutional: NAD HEENT: PERRLA, moist MMs, sclera anicteric, oral pharynx no lesions Neck: no nodes, no JVD, supple, full ROM Respiratory: no wheezing, no rales, no rhonchi, clear to auscultation bilateral Cardiovascular: RRR, no rub Gastrointestinal: soft, non-tender, positive bowel sounds Neurological: moves all 4 limbs Psychiatric: normal affect, A&O x 3 Dx/Plan (1) Sepsis Code(s): A41.9 - SEPSIS, UNSPECIFIED ORGANISM Status: Acute Comment: continue IV antibiotics as below, await cultures (2) Acute on chronic diastolic (congestive) heart failure Code(s): I50.33 - ACUTE ON CHRONIC DIASTOLIC (CONGESTIVE) HEART FAILURE Status : Acute Comment: Continue IV furosemide. Pt was discharged on oral lasix in Dec 2017 but stopped taking the medication. (3) Hypokalemia Code(s): E87.6 - HYPOKALEMIA Status: Acute Comment: Replace potassium (4) Hypertension Code(s): I10 - ESSENTIAL (PRIMARY) HYPERTENSION Status: Chronic Comment: Monitor vital signs, titrate antihypertensives as needed (5) Ovarian cancer Status: Chronic - Plan plan discussed w/ family, continue antibiotics, out of bed/ambulate, DVT proph w /lovenox * . Review of Systems - Review of Systems Constitutional: fever, weakness. negative: chills, sweats, malaise Respiratory: Cough, Dry, SOB with Excertion. negative: Shortness of Breath, Hemoptysis, Pleuritic Pain, Sputum, Wheezing Cardiovascular: negative: chest pain, palpitations, orthopnea, paroxysmal nocturnal dyspnea, edema, light headedness Gastrointestinal: Other. negative: Nausea, Vomiting, Abdominal Pain, Diarrhea, Constipation, Melena, Hematochezia Skin: negative: Rash, Lesions, Christo, Bruising - Medications/Allergies Allergies/Adverse Reactions: Allergies Allergy/AdvReac Type Severity Reaction Status Date / Time adhesive Allergy Verified 12/24/17 21:03 diphenhydramine Allergy Hives Verified 12/24/17 21:03 [From Benadryl] erythromycin base Allergy Nausea Verified 12/24/17 21:03 Penicillins Allergy Verified 12/24/17 21:03 Medications: Current Medications Acetaminophen (Tylenol) 650 mg PO Q4H PRN PRN Reason: Headache/Fever or Pain Last Admin: 03/01/18 09:31 Dose: 650 mg Acetaminophen (Tylenol) 650 mg GA Q4H PRN PRN Reason: Headache/Fever or Pain Atenolol (Tenormin) 50 mg PO DAILY [facility] Atenolol (Tenormin) 50 mg PO 1000 [facility] Stop: 03/01/18 12:00 Last Admin: 03/01/18 09:49 Dose: Not Given Bisacodyl (Dulcolax) 10 mg PO DAILYPRN PRN PRN Reason: Constipation Chlorthalidone (Hygroton) 25 mg PO DAILY [facility] Chlorthalidone (Hygroton) 25 mg PO 1000 [facility] Stop: 03/01/18 12:00 Last Admin: 03/01/18 09:50 Dose: Not Given Enoxaparin Sodium (Lovenox) 40 mg SC 0900 [facility] Last Admin: 03/01/18 09:31 Dose: 40 mg Furosemide (Lasix) 20 mg SLOW IVP Q24H [facility] Heparin Sodium (Porcine) (Heparin Lock Flush 100 Units/Ml) 500 units IV BID [facility] Heparin Sodium (Porcine) (Heparin Lock Flush 100 Units/Ml) 500 units IV PRN PRN PRN Reason: Heparin Flush Meropenem 1 gm/ Sodium (Chloride) 100 mls @ 200 mls/hr IVPB Q8HR [facility] Last Admin: 03/01/18 05:52 Dose: 100 mls Vancomycin HCl 1.5 gm/ Sodium (Chloride) 300 mls @ 200 mls/hr IVPB 1500 [facility] Magnesium Oxide (Magnesium Oxide) 500 mg PO DAILY [facility] Magnesium Oxide (Magnesium Oxide) 500 mg PO 1000 [facility] Stop: 03/01/18 12:00 Last Admin: 03/01/18 09:48 Dose: 500 mg Miscellaneous Medication (Pharmacy To Dose) 1 each IVPB ONE PRN PRN Reason: Pharmacy to dose Stop: 03/30/18 14:57 Multivitamins (Theragran) 1 tab PO DAILY [facility] Multivitamins (Theragran) 1 tab PO 1000 [facility] Stop: 03/01/18 12:00 Last Admin: 03/01/18 09:49 Dose: 1 tab Pantoprazole Sodium (Protonix) 40 mg PO DAILY [facility] Pantoprazole Sodium (Protonix) 40 mg PO 1000 [facility] Stop: 03/01/18 12:00 Last Admin: 03/01/18 09:49 Dose: 40 mg Potassium Chloride (Klor-Con 10) 30 meq PO BID [facility] Potassium Chloride (Klor-Con 10) 30 meq PO 1000 [facility] Stop: 03/01/18 12:00 Last Admin: 03/01/18 09:49 Dose: Not Given Sodium Chloride (Flush - Normal Saline) 10 ml IVF Q12HR [facility] Sodium Chloride (Flush - Normal Saline) 10 ml IVF PRN PRN PRN Reason: Saline Flush
[2018-03-01] MEDS ORDERED: Furosemide 20 MG/2 ML VIAL SLOW IVP SCH (10:45)
--- NOTE | 2018-03-01 12:20 | CON ---
DATE OF CONSULTATION: 03/01/2018 REASON FOR CONSULTATION: Ovarian cancer. HISTORY OF PRESENT ILLNESS: Ms. Granados is a pleasant 72-year-old female with ovarian cancer diagnos ed in 2013. She has undergone multiple regimens, but is currently on topotecan. Her last treatment was on 02/20. Over the past several months, she has had a chronic cough, progressive shortness of br eath and dyspnea on exertion. She was admitted in December for the symptoms. In December, a chest x -ray showed bilateral pleural effusions with an echo, which showed an ejection fraction of 50% to 55% . There was reversal of flow suggestive of diastolic dysfunction. She was treated with Lasix and im proved, but once continued to get worse. She has received Lasix as an outpatient several times, yet her symptoms do not resolve. On Monday, she developed a fever and presented to the emergency room f or evaluation. She had a chest and thoracic CT angio, which showed no pulmonary embolism. There wer e moderate size bilateral pleural effusions. There was some question of some infiltrates. She was d iagnosed with pneumonia and admitted for treatment. She did get placed on antibiotics. She also rec eived Lasix here in the inpatient facility with improvement of her symptoms. PAST MEDICAL HISTORY: 1. Metastatic ovarian cancer. 2. Hypertension. 3. Possible diastolic dysfunction. PAST SURGICAL HISTORY: 1. Hysterectomy. 2. MediPort placement. ALLERGIES: AMOXICILLIN, BENADRYL, ERYTHROMYCIN and PENICILLINS. FAMILY HISTORY: Noncontributory. SOCIAL HISTORY: She is , lives with her spouse, 2 children. No alcohol, tobacco or illicit d rug use. REVIEW OF SYSTEMS: Constitutional: Positive for fever and chills. No night sweats, recent weight l oss or gain. Eyes: No blurred or double vision. ENT: No pain, hoarseness, sore throat or dysphagi a. Cardiovascular: No chest pain, palpitations or syncope. Respiratory: Positive for shortness of breath, dyspnea on exertion and cough. Gastrointestinal: No nausea, vomiting, diarrhea, constipati on or abdominal pain. Genitourinary: No dysuria or hematuria. Musculoskeletal: Positive for joint pain. Skin: No rash or pruritus. Hematologic: No bleeding, bruising or clotting. Neurologic: D enies weakness, headache, numbness, tingling or seizure activity. Psychiatric: No anxiety or depres dee dee. PHYSICAL EXAMINATION: VITAL SIGNS: Temperature 98.7, pulse is 109, respiratory rate is 18 and BP is 100/68. She is 94% on 2 liters. GENERAL: Chronically ill-appearing female in no acute distress. HEENT: Normocephalic and atraumatic. Pupils are equal and reactive to light. NECK: Supple. CARDIOVASCULAR: Regular rate and rhythm. LUNGS: Diminished in the posterior bases. ABDOMEN: Soft and nontender. Bowel sounds are positive. She has a colostomy. SKIN: There is no rash. HEMATOLOGICAL: There is no petechia or purpura. NEUROLOGICAL: Nonfocal. PSYCHIATRIC: The patient is alert and oriented and appropriate. PERTINENT LABORATORY AND X-RAYS: Current WBCs 23.9, hemoglobin 10.5, hematocrit 32.6, platelet count is 175,000, 88% neutrophils, 4% bands and 6% lymphocytes. Sodium is 137, potassium 3.8, chloride 95 , CO2 is 30, BUN is 9 and creatinine is 0.71. Lactic acid is 1.9, calcium 9.0, total bilirubin is 0. 5, AST 17, ALT is 8, alkaline phosphatase is 182, creatinine kinase is less than 9 and troponin 0.010 . BNP is 62, serum total protein 6.4, albumin 3.8 and globulin 2.8. Urine is negative for bacteria. Radiology per HPI. ASSESSMENT: 1. Metastatic ovarian cancer. 2. Progressive dyspnea with possible pneumonia versus diastolic dysfunction. DISCUSSION: The patient has improved with both antibiotics and Lasix. She continues to sat in the l ow 90s with oxygen. I have asked Pulmonology to evaluate the patient. We will monitor her CBC. Her next chemo treatment is in 1 week. Thank you for the consult.
[2018-03-01] MEDS: Vancomycin HCl 1.5 GM in Sodium Chloride 0.9% 250 ML 300 ML IVPB SCH (15:16)
[2018-03-01] MEDS ORDERED: POTASSIUM CHLOR 10 MEQ PO SCH (21:00)
[2018-03-02] MEDS: Meropenem 1 GM in Sodium Chloride 0.9% 100 ML IVPB SCH ×2 (05:45→13:39)
[2018-03-02 06:36] LABS: Anion Gap 7 mmol/L (10-20); BUN (Urea Nitrogen) 13 mg/dL (9.8-20.1); Calc. Creatinine Clearance 91 mL/min (70-130); Calcium 8.7 mg/dL (7.8-10.44); Carbon Dioxide 35 mmol/L (23-31); Chloride 93 mmol/L (98-107); Estimated GFR-MDRD Greater than 90; Glucose 99 mg/dL (83-110); Potassium 3.3 mmol/L (3.5-5.1); Sodium 132 mmol/L (136-145)
[2018-03-02 06:39] LABS: Anisocytosis SLIGHT = 6-15 cells (100X) (0-5/hpf); Band 1 % (5-11); Eosinophils 2 % (0-10); Lymphocytes 8 % (21-51); MDiff Complete? YES; Mean Corpuscular HGB CONC 32.6 g/dL (32.0-36.0); Mean Corpuscular Hemoglobin 30.5 pg (27.0-31.0); Mean Corpuscular Volume 93.3 fl (81.0-99.0); Mean Platelet Volume 7.8 fL (7.4-10.4); Monocytes 5 % (0-10); Neutrophil 84 % (42-75); Platelet Count 163 thou/uL (130-400); Polychromasia SLIGHT = 2-3 cells (100X) (0-2/hpf); RBC Distribution Width 21.5 % (11.5-14.5); Red Blood Cell (RBC) Count 3.28 mill/uL (4.20-5.40); White Blood Cell (WBC) Count 20.2 thou/uL (4.8-10.8)
[2018-03-02] MEDS ORDERED: Diabetic Tussin 200 MG/10 ML UDCUP PO PRN (07:30)
[2018-03-02] MEDS ORDERED: Mag-Al 1200 mg/1200 mg/30 ML UDCUP PO PRN (07:30)
[2018-03-02] MEDS ORDERED: Temazepam 15 MG CAP PO PRN (07:30)
[2018-03-02] MEDS ORDERED: HYDROcodone/Acetaminophen 5/325 mg Tablet PO PRN (07:30)
[2018-03-02] MEDS ORDERED: Ondansetron HCl/PF 4 MG/2 ML Vial IVP PRN (07:30)
[2018-03-02] MEDS ORDERED: Chloraseptic Spray 180 ml Bottle PO PRN (07:30)
[2018-03-02] MEDS ORDERED: Loperamide HCl 2 MG CAP PO PRN (07:30)
[2018-03-02] MEDS ORDERED: hydrALAZINE 20 MG/ML VIAL SLOW IVP PRN (07:30)
[2018-03-02] MEDS ORDERED: Artificial Tears 18 DROP/0.9 ML EA EYE PRN (07:30)
[2018-03-02] MEDS ORDERED: Eucerin (Mineral Oil/Petrolatum,White) 30 gm Jar TOP PRN (07:30)
[2018-03-02] MEDS ORDERED: Ondansetron ODT 4 MG TAB PO PRN (07:30)
[2018-03-02] MEDS ORDERED: Milk Of Magnesia 30 ML UDCUP PO PRN (07:30)
[2018-03-02] MEDS ORDERED: Sodium Chloride 0.65% Nasal 44 ML BOT EA NARE PRN (07:30)
[2018-03-02] MEDS ORDERED: Potassium Chloride 20 MEQ TAB PO SCH ×2 (07:45→08:00)
[2018-03-02] MEDS ORDERED: [UNRECOGNIZED DRUG - OTHER] PO SCH (09:00)
[2018-03-02] MEDS ORDERED: CHLORTHALIDONE PO SCH (09:00)
[2018-03-02] MEDS ORDERED: Non-Formulary Item 1 EACH (Magnesium Oxide [Magnesium] 500 MG) PO SCH (09:00)
[2018-03-02] MEDS ORDERED: ATENOLOL PO SCH (09:00)
[2018-03-02] MEDS ORDERED: Furosemide 20 MG/2 ML VIAL SLOW IVP SCH (09:00)
[2018-03-02] MEDS ORDERED: Non-Formulary Item 1 EACH (Multivitamin [Daily Multiple Vitamin] 1 EACH) PO SCH (09:00)
[2018-03-02] MEDS: Magnesium Oxide 250 MG TAB PO SCH (09:19)
[2018-03-02] MEDS: Famotidine 20 MG TAB PO SCH ×2 (09:19→20:26)
[2018-03-02] MEDS: Multivit, Therapeutic 1 TAB PO SCH (09:19)
[2018-03-02] MEDS: Enoxaparin Sodium 40 MG/0.4 ML SYRINGE SC SCH (09:20)
[2018-03-02] MEDS: Atenolol 50 MG TAB PO SCH (09:31)
[2018-03-02] MEDS: Chlorthalidone 25 MG TAB PO SCH (09:32)
--- NOTE | 2018-03-02 11:14 | PDOC.PN ---
- Subjective Encounter Start Date: 03/02/18 Encounter Start Time: 09:00 -: old records requested/rev pt has dyspnea, has cough, no fever Patient seen and examined. No overnight events - Objective Resuscitation Status: Resuscitation Status FULL:Full Resuscitation MAR Reviewed: Yes Vital Signs & Weight: Vital Signs (12 hours) Temp Pulse Resp BP BP Pulse Ox 03/02/18 09:31 108 H 99/65 03/02/18 08:00 98.8 F 108 H 18 103/70 97 Weight Admit Weight 158 lb 6 oz Weight 158 lb 6 oz I&O: 03/01/18 03/02/18 03/03/18 06:59 06:59 06:59 Intake Total 540 Balance 540 Result Diagrams: 03/02/18 05:45 03/02/18 05:45 Radiology Reviewed by me: Yes (chest xray) Phys Exam - Physical Examination Constitutional: NAD HEENT: PERRLA, moist MMs, sclera anicteric Neck: no JVD, supple Respiratory: no wheezing, no rhonchi reduced air entry at base Cardiovascular: RRR, no significant murmur, no rub tachycardia Gastrointestinal: soft, non-tender, no distention, positive bowel sounds Musculoskeletal: no edema, pulses present Neurological: non-focal, normal sensation, moves all 4 limbs Lymphatic: no nodes Psychiatric: normal affect, A&O x 3 Skin: no rash, normal turgor Dx/Plan (1) Acute on chronic diastolic (congestive) heart failure Code(s): I50.33 - ACUTE ON CHRONIC DIASTOLIC (CONGESTIVE) HEART FAILURE Status : Acute Comment: (2) Acute respiratory failure with hypoxia Code(s): J96.01 - ACUTE RESPIRATORY FAILURE WITH HYPOXIA Status: Acute Comment: and chronic respiratory failure (3) Bilateral pleural effusion Code(s): J90 - PLEURAL EFFUSION, NOT ELSEWHERE CLASSIFIED Status: Acute (4) Hypokalemia Code(s): E87.6 - HYPOKALEMIA Status: Acute Comment: (5) Sepsis Code(s): A41.9 - SEPSIS, UNSPECIFIED ORGANISM Status: Acute Comment: (6) UTI (urinary tract infection) Status: Acute (7) Hypertension Code(s): I10 - ESSENTIAL (PRIMARY) HYPERTENSION Status: Chronic Comment: (8) Ovarian cancer Status: Chronic - Plan cont current plan of care, plan discussed w/ family, continue antibiotics * continue empiric meropenam and vancomycin * medication reviewed as below * symptomatic treatment * follow culture. * replace potassium * pulmonary consulted * discussed with family * continue lasix Review of Systems - Review of Systems Constitutional: negative: fever, chills, sweats, weakness, malaise, other ENT: negative: Ear Pain, Ear Discharge, Nose Pain, Nose Discharge, Nose Congestion, Mouth Pain, Mouth Swelling, Throat Pain, Throat Swelling, Other Respiratory: Cough, Shortness of Breath. negative: Dry, Hemoptysis, SOB with Excertion, Pleuritic Pain, Sputum, Wheezing Cardiovascular: negative: chest pain, palpitations, orthopnea, paroxysmal nocturnal dyspnea, edema, light headedness, other Gastrointestinal: negative: Nausea, Vomiting, Abdominal Pain, Diarrhea, Constipation, Melena, Hematochezia, Other Genitourinary: negative: Dysuria, Frequency, Incontinence, Hematuria, Retention , Other Musculoskeletal: negative: Neck Pain, Shoulder Pain, Arm Pain, Back Pain, Hand Pain, Leg Pain, Foot Pain, Other Skin: negative: Rash, Lesions, Christo, Bruising, Other - Medications/Allergies Allergies/Adverse Reactions: Allergies Allergy/AdvReac Type Severity Reaction Status Date / Time adhesive Allergy Verified 12/24/17 21:03 diphenhydramine Allergy Hives Verified 12/24/17 21:03 [From Benadryl] erythromycin base Allergy Nausea Verified 12/24/17 21:03 Penicillins Allergy Verified 12/24/17 21:03 Medications: Current Medications Acetaminophen (Tylenol) 650 mg PO Q4H PRN PRN Reason: Headache/Fever or Pain Last Admin: 03/01/18 09:31 Dose: 650 mg Hydrocodone Bitart/Acetaminophen ([place] 5/325) 1 tab PO Q4H PRN PRN Reason: Moderate Pain (4-6) Al Hydroxide/Mg Hydroxide (Maalox) 15 ml PO Q4H PRN PRN Reason: Heartburn or Indigestion Artificial Tears (Tears Naturale) 0 drop EA EYE PRN PRN PRN Reason: Dry Eyes Atenolol (Tenormin) 50 mg PO DAILY [facility] Last Admin: 03/02/18 09:31 Dose: Not Given Bisacodyl (Dulcolax) 10 mg PO DAILYPRN PRN PRN Reason: Constipation Chlorthalidone (Hygroton) 25 mg PO DAILY [facility] Last Admin: 03/02/18 09:32 Dose: Not Given Enoxaparin Sodium (Lovenox) 40 mg SC 0900 [facility] Last Admin: 03/02/18 09:20 Dose: 40 mg Famotidine (Pepcid) 20 mg PO BID [facility] Last Admin: 03/02/18 09:19 Dose: 20 mg Furosemide (Lasix) 20 mg SLOW IVP 0900 [facility] Last Admin: 03/02/18 09:20 Dose: 20 mg Guaifenesin (Robitussin Sf) 200 mg PO Q4H PRN PRN Reason: Cough Heparin Sodium (Porcine) (Heparin Lock Flush 100 Units/Ml) 500 units IV BID [facility] Last Admin: 03/02/18 09:25 Dose: 500 unit Heparin Sodium (Porcine) (Heparin Lock Flush 100 Units/Ml) 500 units IV PRN PRN PRN Reason: Heparin Flush Last Admin: 03/02/18 06:23 Dose: 500 unit Hydralazine HCl (Apresoline) 10 mg SLOW IVP Q4H PRN PRN Reason: Systolic BP > 180 Meropenem 1 gm/ Sodium (Chloride) 100 mls @ 200 mls/hr IVPB Q8HR [facility] Last Admin: 03/02/18 05:45 Dose: 100 mls Vancomycin HCl 1.5 gm/ Sodium (Chloride) 300 mls @ 200 mls/hr IVPB 1500 [facility] Last Admin: 03/01/18 15:16 Dose: 300 mls Loperamide HCl (Imodium) 2 mg PO PRN PRN PRN Reason: Diarrhea/Loose Stools Magnesium Hydroxide (Milk Of Magnesium) 30 ml PO DAILYPRN PRN PRN Reason: Constipation Magnesium Oxide (Magnesium Oxide) 500 mg PO DAILY [facility] Last Admin: 03/02/18 09:19 Dose: 500 mg Mineral Oil/White Petrolatum (Eucerin Cream) 0 gm TOP BIDPRN PRN PRN Reason: Dry Skin Miscellaneous Medication (Pharmacy To Dose) 1 each IVPB ONE PRN PRN Reason: Pharmacy to dose Stop: 03/30/18 14:57 Multivitamins (Theragran) 1 tab PO DAILY [facility] Last Admin: 03/02/18 09:19 Dose: 1 tab Ondansetron HCl (Zofran Odt) 4 mg PO Q6H PRN PRN Reason: Nausea/Vomiting Ondansetron HCl (Zofran) 4 mg IVP Q6H PRN PRN Reason: Nausea/Vomiting Pantoprazole Sodium (Protonix) 40 mg PO DAILY [facility] Last Admin: 03/02/18 09:19 Dose: 40 mg Potassium Chlor Sr (Caps 10 Meq) 0 each PO BID[facility] Phenol (Chloraseptic [place] 180 Ml Bot) 0 ml PO PRN PRN PRN Reason: Sore Throat Potassium Chloride (K-Dur) 20 meq PO QAM-[facility] Last Admin: 03/02/18 09:14 Dose: Not Given Sodium Chloride (Flush - Normal Saline) 10 ml IVF Q12HR [facility] Last Admin: 03/02/18 09:20 Dose: 10 ml Sodium Chloride (Flush - Normal Saline) 10 ml IVF PRN PRN PRN Reason: Saline Flush Last Admin: 03/02/18 06:23 Dose: 10 ml Sodium Chloride ([place] Nasal [place] 0.65%) 0 ml EA NARE QIDPRN PRN PRN Reason: Nasal Congestion Temazepam (Restoril) 15 mg PO HSPRN PRN PRN Reason: Insomnia
[2018-03-02] MEDS: POTASSIUM CHLOR 10 MEQ PO SCH ×2 (13:38→17:34)
[2018-03-02] MEDS: Vancomycin HCl 1.5 GM in Sodium Chloride 0.9% 250 ML 300 ML IVPB SCH (16:37)
[2018-03-02] MEDS ORDERED: Potassium Chloride 10 MEQ TAB PO SCH (17:00)
--- NOTE | 2018-03-02 17:25 | CON ---
DATE OF CONSULTATION: 03/02/2018 REASON FOR CONSULTATION: Diastolic heart failure and shortness of breath. HISTORY OF PRESENT ILLNESS: Ms. Granados is a very pleasant 72-year-old white female who comes to the hospital for shortness of breath. She has a history of stage III ovarian cancer. She has been nhung aamir for this ovarian cancer for the last almost 40 years. She recently was on Paxil up until about F ebruary of this year and had to be switched to topotecan recently secondary to side effects. Ms. Royal hansen comes in because of increased shortness of breath. She was found to have large bilateral pleura l effusions. Recent echocardiogram done in December showed evidence of diastolic heart failure, so C ardiology is being consulted to assess whether these effusions may be related to just decompensated d iastolic dysfunction. On my evaluation, Mrs. Granados tells me that she had several side effects whil e on Taxotere and she was told that it would be about 1 month until the side effects would go away, b ut she continues to feel like if she had a dose yesterday. She had a pleural effusion at least since December. When I reviewed the echocardiogram from 12/24/2017, she already had a pleural effusion on the echo. She also had them on the chest x-ray at that time. Currently, she was placed on Lasix fo r the last few days and feels slightly better. Denies any chest pain, tightness, pressure. Her shor tness of breath has improved slightly as above. PAST MEDICAL HISTORY: 1. Stage III ovarian cancer. 2. Hypertension. 3. Grade I/III diastolic dysfunction. PAST SURGICAL HISTORY: 1. Hysterectomy and debulking surgery 3-1/2 years ago. 2. Left side colostomy. 3. Tonsillectomy. OUTPATIENT MEDICATIONS: Include: 1. Potassium chloride. 2. Magnesium. 3. Atenolol/chlorthalidone 50/25 a day. 4. Lasix 20 mg a day. 5. Atorvastatin 40 mg a day at bedtime. 6. Topotecan. ALLERGIES: PENICILLIN, BENADRYL, ERYTHROMYCIN, and ADHESIVE TAPE. FAMILY HISTORY: Breast cancer in mother, otherwise noncontributory. SOCIAL HISTORY: No alcohol, tobacco or drugs. REVIEW OF SYSTEMS: A 12-point review of systems was done and is all negative unless stated in the hi story of present illness. PHYSICAL EXAMINATION: VITAL SIGNS: Temperature 98.8, pulse 108, respiratory rate 18, satting 97% on 3 liters, blood pressu re 103/70. GENERAL: Awake, alert, oriented x3, in no distress. HEENT: Normocephalic, atraumatic. NECK: Supple. LUNGS: Have reduced breath sounds bilaterally with clinical findings suggestive of pleural effusions . CARDIOVASCULAR: S1, S2, no S3, S4, no murmurs, no rubs. ABDOMEN: Soft, positive bowel sounds. EXTREMITIES: Trace edema. SKIN: Warm and dry. LABORATORY WORK: Shows a white count of 25, hemoglobin of 11, hematocrit 35, platelet count 192. Ch emistry with a low potassium at 3.0, now up to 3.3, troponin was negative x1. BNP was 62. CT of the chest was reviewed on the of this month just 2 days ago and it showed no pulmonary emb olism. Thoracic aorta was unremarkable. Moderate size bilateral pleural effusion with adjacent atel ectatic changes, spinal degenerative changes in the splenic lesion again noted about 2.5 cm in size. Lungs were clear otherwise other than the pleural effusions. Echocardiogram, I reviewed the read by Dr. New as well as reviewed it myself and I would have to agree her EF was about 55% with grade I diastolic dysfunction and mildly elevated right-sided pressu res. Recent nuclear stress test done on 12/25/2017 showed no evidence of ischemia. LV function was about 70%. EKG was reviewed, sinus rhythm with low voltage QRS. ASSESSMENT: 1. Bilateral pleural effusions. 2. Chronic diastolic dysfunction, grade I/III. 3. Stage III ovarian cancer. PLAN: 1. Most likely the cause of her bilateral pleural effusions is not related to her heart. This is no t the way diastolic dysfunction behaves. She is really not fluid overload anywhere other than her pl eural space. She also had a small pericardial effusion on the echo as well as on the CT. 2. Given her low voltage QRS in the small pericardial effusion she had 2 months ago, I am going to r epeat an echocardiogram to make sure that her pericardial effusion is not significantly changed. 3. Would favor pleural effusions to be related to either Taxotere or just malignancy. 4. Disposition: Pending repeat echocardiogram. Otherwise, if it is unchanged. No further recommen dations from the cardiac perspective. Thank you for letting us to participate in the care of your patient. We will follow.
[2018-03-02] MEDS ORDERED: MEROPENEM 1 GM/50 ML 1 GM in Premix Bag 1 BAG IVPB SCH (22:00)
--- NOTE | 2018-03-03 | CON ---
DATE OF CONSULTATION: 03/02/2018 HISTORY OF PRESENT ILLNESS: This is a 72-year-old female with ovarian cancer. She is followed at [facility]. Her daughter tells me she has had bilateral pleural effusions for the last 15 months. Sonja blackman said she did have a break in her chemotherapy and her effusions improved when away, when she was of f chemotherapy. She was recently started back on chemotherapy. 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 She presented with shortness of breath, received Lasix in the emergency room and improved. She was admitted with a diagnosis of pneumonia. PAST MEDICAL HISTORY: Remarkable for hypertension, hysterectomy, and placement of a MediPort. It is unclear to me what drug she is receiving at [facility]. ALLERGIES: She has an allergy to PENICILLIN, BENADRYL, ERYTHROMYCIN. FAMILY HISTORY: Negative for lung disease in early age. SOCIAL HISTORY: She has 2 children. She is . Her daughter is in the room, and her daughter is an excellent historian. She does not drink, smoke, or use drugs. REVIEW OF SYSTEMS: Ten points otherwise negative. She actually says she feels like she is at her [employer] [facility] at this point. PHYSICAL EXAMINATION: GENERAL: She is afebrile. VITAL SIGNS: Heart rate is 108, blood pressure 99/65, respiratory rate is 18, oximetry is 97 on 3 li ters, blood pressure 103/70 earlier today. HEENT: Pupils are equal. Sclerae is anicteric. NECK: Supple, no lymphadenopathy. LUNGS: Remarkable for decreased breath sounds at both bases. HEART: Regular rhythm, no S3. ABDOMEN: Soft and nontender. EXTREMITIES: Without asymmetry. Intake and output is not recorded. LABORATORY DATA: White count 20.2, hemoglobin 10.0, platelets 163,000. Sodium 132, potassium 3.3, chloride 93, bicarbonate 35, BUN 13, creatinine 0.64. I reviewed her ches t CT. IMPRESSION: Chronic left bilateral effusions. I doubt thoracentesis will change our management. I would like Cardiology to see her to tell me whether or not her diastolic dysfunction is significant e nough to cause pleural effusions. It is not, then this is either drug related (based on the history provided by the daughter) or relate d to her ovarian cancer, most likely. It is extremely unlikely she has an infected pleural space on both sides. She does not want a thoracentesis and I am really not inclined to force the issue. Her BNP was only 62, which would argue against diastolic dysfunction/congestive heart failure. I will be happy to follow with the other physicians. Hopefully, she is a candidate to go home. There is noth ing on her radiograph or CT that is suggestive of pneumonia in my opinion. Antibiotics have been dis continued. I discussed the above with Cardiology as well as Oncology. This is a 50-minute consult, greater than 50% of the time was spent on the unit coordinating care.
[2018-03-03 05:53] LABS: #Eosinphils 0.1 thou/uL (0.0-0.7); #Lymphocytes 0.9 thou/uL (1.20-3.40); #Monocytes 0.6 thou/uL (0.11-0.59); #Neutrophils 11.5 thou/uL (1.40-6.50); %Basophils 0.1 % (0.0-1.0); %Eosinophils 0.6 % (0.0-10.0); %Lymphocytes 6.6 % (21.0-51.0); %Monocytes 4.7 % (0.0-10.0); Hemoglobin 9.4 g/dL (12.0-16.0); Mean Corpuscular HGB CONC 33.5 g/dL (32.0-36.0); Mean Corpuscular Hemoglobin 31.2 pg (27.0-31.0); Mean Corpuscular Volume 93.4 fl (81.0-99.0); Mean Platelet Volume 7.7 fL (7.4-10.4); Platelet Count 153 thou/uL (130-400); Red Blood Cell (RBC) Count 3.01 mill/uL (4.20-5.40); White Blood Cell (WBC) Count 13.1 thou/uL (4.8-10.8)
[2018-03-03 06:04] LABS: ALT (SGPT) Less than 7 U/L (8-55); AST (SGOT) 11 U/L (5-34); Albumin 2.9 g/dL (3.4-4.8); Alkaline Phosphatase 96 U/L (40-150); Anion Gap 11 mmol/L (10-20); BUN (Urea Nitrogen) 11 mg/dL (9.8-20.1); Bilirubin, Total 0.3 mg/dL (0.2-1.2); Calc. Creatinine Clearance 98 mL/min (70-130); Calcium 8.8 mg/dL (7.8-10.44); Carbon Dioxide 34 mmol/L (23-31); Chloride 95 mmol/L (98-107); Estimated GFR-MDRD Greater than 90; Globulin 2.4 g/dL (2.4-3.5); Glucose 96 mg/dL (83-110); Magnesium 1.3 mg/dL (1.6-2.6); Potassium 3.8 mmol/L (3.5-5.1); Protein, Total 5.3 g/dL (6.0-8.3); Sodium 136 mmol/L (136-145)
[2018-03-03] MEDS ORDERED: Furosemide 40 MG/4 ML VIAL SLOW IVP SCH (09:00)
[2018-03-03] MEDS: POTASSIUM CHLOR 10 MEQ PO SCH ×2 (09:30→16:16)
[2018-03-03] MEDS: Magnesium Oxide 250 MG TAB PO SCH (09:31)
[2018-03-03] MEDS: Famotidine 20 MG TAB PO SCH ×2 (09:33→20:09)
[2018-03-03] MEDS: Multivit, Therapeutic 1 TAB PO SCH (09:33)
[2018-03-03] MEDS: Enoxaparin Sodium 40 MG/0.4 ML SYRINGE SC SCH (09:33)
--- NOTE | 2018-03-03 11:05 | PDOC.PN ---
- Subjective Encounter Start Date: 03/03/18 Encounter Start Time: 07:45 Subjective: no sob now but still on nasal canula -: is able to amb in room - Objective Resuscitation Status: Resuscitation Status FULL:Full Resuscitation MAR Reviewed: Yes Vital Signs & Weight: Vital Signs (12 hours) Temp Pulse Resp BP Pulse Ox 03/03/18 08:51 98.1 F 111 H 16 118/76 96 03/03/18 05:40 97 Weight Admit Weight 158 lb 6 oz Weight 158 lb 6 oz I&O: 03/02/18 03/03/18 03/04/18 06:59 06:59 06:59 Intake Total 830 Balance 830 Result Diagrams: 03/03/18 05:27 03/03/18 05:27 Phys Exam - Physical Examination HEENT: PERRLA, moist MMs Neck: no JVD, supple Respiratory: no wheezing rales+ Cardiovascular: RRR, no significant murmur Gastrointestinal: soft, non-tender, positive bowel sounds Musculoskeletal: no edema, pulses present Neurological: non-focal, moves all 4 limbs Psychiatric: normal affect, A&O x 3 Dx/Plan (1) Acute on chronic diastolic (congestive) heart failure Code(s): I50.33 - ACUTE ON CHRONIC DIASTOLIC (CONGESTIVE) HEART FAILURE Status : Acute Comment: (2) Acute respiratory failure with hypoxia Code(s): J96.01 - ACUTE RESPIRATORY FAILURE WITH HYPOXIA Status: Acute Comment: and chronic respiratory failure (3) Hypertension Code(s): I10 - ESSENTIAL (PRIMARY) HYPERTENSION Status: Chronic Qualifiers: Hypertension type: essential hypertension Qualified Code(s): I10 - Essential (primary) hypertension Comment: (4) Ovarian cancer Status: Chronic Qualifiers: Laterality: unspecified laterality Qualified Code(s): C56.9 - Malignant neoplasm of unspecified ovary (5) Chronic anemia Code(s): D64.9 - ANEMIA, UNSPECIFIED Status: Chronic - Plan taper and DC nasal canula for spo2 of 90% -: increase lasix to 40mg iv daily, dc chlorthalidone -: repeat echo is being done -: off antibiotics -: on topotecan for ovarian ca * . Review of Systems - Medications/Allergies Allergies/Adverse Reactions: Allergies Allergy/AdvReac Type Severity Reaction Status Date / Time adhesive Allergy Verified 12/24/17 21:03 diphenhydramine Allergy Hives Verified 12/24/17 21:03 [From Benadryl] erythromycin base Allergy Nausea Verified 12/24/17 21:03 Penicillins Allergy Verified 12/24/17 21:03 Medications: Current Medications Acetaminophen (Tylenol) 650 mg PO Q4H PRN PRN Reason: Headache/Fever or Pain Last Admin: 03/01/18 09:31 Dose: 650 mg Hydrocodone Bitart/Acetaminophen ([place] 5/325) 1 tab PO Q4H PRN PRN Reason: Moderate Pain (4-6) Al Hydroxide/Mg Hydroxide (Maalox) 15 ml PO Q4H PRN PRN Reason: Heartburn or Indigestion Artificial Tears (Tears Naturale) 0 drop EA EYE PRN PRN PRN Reason: Dry Eyes Atenolol (Tenormin) 50 mg PO DAILY [facility] Last Admin: 03/02/18 09:31 Dose: Not Given Bisacodyl (Dulcolax) 10 mg PO DAILYPRN PRN PRN Reason: Constipation Enoxaparin Sodium (Lovenox) 40 mg SC 0900 [facility] Last Admin: 03/03/18 09:33 Dose: 40 mg Famotidine (Pepcid) 20 mg PO BID [facility] Last Admin: 03/03/18 09:33 Dose: 20 mg Furosemide (Lasix) 40 mg SLOW IVP DAILY [facility] Last Admin: 03/03/18 09:33 Dose: 40 mg Guaifenesin (Robitussin Sf) 200 mg PO Q4H PRN PRN Reason: Cough Heparin Sodium (Porcine) (Heparin Lock Flush 100 Units/Ml) 500 units IV BID [facility] Last Admin: 03/03/18 09:34 Dose: 500 unit Heparin Sodium (Porcine) (Heparin Lock Flush 100 Units/Ml) 500 units IV PRN PRN PRN Reason: Heparin Flush Last Admin: 03/03/18 05:27 Dose: 500 unit Hydralazine HCl (Apresoline) 10 mg SLOW IVP Q4H PRN PRN Reason: Systolic BP > 180 Loperamide HCl (Imodium) 2 mg PO PRN PRN PRN Reason: Diarrhea/Loose Stools Magnesium Hydroxide (Milk Of Magnesium) 30 ml PO DAILYPRN PRN PRN Reason: Constipation Magnesium Oxide (Magnesium Oxide) 500 mg PO DAILY [facility] Last Admin: 03/03/18 09:31 Dose: 500 mg Mineral Oil/White Petrolatum (Eucerin Cream) 0 gm TOP BIDPRN PRN PRN Reason: Dry Skin Miscellaneous Medication (Pharmacy To Dose) 1 each IVPB ONE PRN PRN Reason: Pharmacy to dose Stop: 03/30/18 14:57 Multivitamins (Theragran) 1 tab PO DAILY [facility] Last Admin: 03/03/18 09:33 Dose: 1 tab Ondansetron HCl (Zofran Odt) 4 mg PO Q6H PRN PRN Reason: Nausea/Vomiting Ondansetron HCl (Zofran) 4 mg IVP Q6H PRN PRN Reason: Nausea/Vomiting Pantoprazole Sodium (Protonix) 40 mg PO DAILY [facility] Last Admin: 03/03/18 09:34 Dose: 40 mg Potassium Chlor Sr (Caps 10 Meq) 0 each PO BID-WM [facility] Last Admin: 03/03/18 09:30 Dose: 1 each Phenol (Chloraseptic [place] 180 Ml Bot) 0 ml PO PRN PRN PRN Reason: Sore Throat Sodium Chloride (Flush - Normal Saline) 10 ml IVF Q12HR [facility] Last Admin: 03/03/18 09:34 Dose: 10 ml Sodium Chloride (Flush - Normal Saline) 10 ml IVF PRN PRN PRN Reason: Saline Flush Last Admin: 03/03/18 05:27 Dose: 10 ml Sodium Chloride ([place] Nasal [place] 0.65%) 0 ml EA NARE QIDPRN PRN PRN Reason: Nasal Congestion Temazepam (Restoril) 15 mg PO HSPRN PRN PRN Reason: Insomnia
[2018-03-03] MEDS: Atenolol 50 MG TAB PO SCH (11:21)
[2018-03-03] MEDS: Chlorthalidone 25 MG TAB PO SCH (11:22)
[2018-03-03] MEDS: Acetaminophen 325 MG TAB PO PRN (12:07)
--- NOTE | 2018-03-03 12:29 | PDOC.CTH ---
Cardiology Progress Note - Subjective No new issues. Breathing at baseline. She had her echo done earlier today and she has a moderate sized pericardial effusion that seems old as she already has tissue forming around her pericardium, no evidence of tamponade. - Objective Vital Signs Temp Pulse Resp BP Pulse Ox 03/03/18 11:21 111 H 03/03/18 08:51 98.1 F 111 H 16 118/76 96 03/03/18 08:00 98 F 111 H 16 96 03/03/18 05:40 97 Admit Weight 158 lb 6 oz Weight 158 lb 6 oz 03/02/18 03/03/18 03/04/18 06:59 06:59 06:59 Intake Total 830 Balance 830 - Physical Examination General/Neuro: alert & oriented x3, NAD Neck: no JVD present Lungs: CTA, unlabored respirations Heart: RRR Abdomen: NT/ND Extremities: + edema B (1+) - Labs Result Diagrams: 03/03/18 05:27 03/03/18 05:27 Troponin/CKMB CK-MB (CK-2) 0.2 ng/mL (0-6.6) 02/28/18 11:36 Troponin I Less than 0.010 ng/mL (< 0.028) 02/28/18 11:36 - Assessment/Plan 1. Pericardial effucion. Chronic. No tapmonade. 2. Chronic diastolic heart failure 3. Stage III ovarian cancer. 4. large pleural effusions. PLAN: - Effusions may be related to malignancy or taxotere use. She is already off taxotere. - No tamponade. No indication for pericaridocenthesis. - Continue lasix daily, would switch to PO dosing at 40 mg daily.
[2018-03-03] MEDS ORDERED: Atenolol 25 MG TAB PO SCH (13:30)
--- NOTE | 2018-03-03 20:08 | PRG ---
DATE OF SERVICE: 03/03/2018 SUBJECTIVE: Ms. Granados is clinically unchanged. She says she is feeling reasonably well. OBJECTIVE: VITAL SIGNS: She is afebrile, heart rate is 82, respiratory rate is 14, oximetry is 98 on 2 liters, blood pressure 96/67. LUNGS: Remarkable for decreased breath sounds at her bases. HEART: Regular rhythm. ABDOMEN: Soft. When I was in the room with her, her heart rate got up to 120 appeared to be regular. I suspect some of this may be related to acutely stopping her beta paige. I placed her back on half dose of her beta paige today. I discussed with Cardiology. LABORATORY DATA: White count 13.1, hemoglobin 9.4, platelets 153. Sodium 136, potassium 3.8, chloride 95, bicarbonate 34, BUN 11, creatinine 0.6. Dr. Christopher reviewed her echocardiogram yesterday and told me that he did not feel there was a nurse d iastolic dysfunction here to create pleural effusions. No significant valvular disease. She did hav e a pericardial effusion and bilateral pleural effusions as expected. IMPRESSION: Pleural effusions and pericardial effusion? related to chemotherapy versus ovarian cance r. It is extremely unlikely she has an infected pleural space. PLAN: We will continue with supportive care. She probably needs to have disks burned of her chest i mages to take back to [facility].
[2018-03-04] MEDS: POTASSIUM CHLOR 10 MEQ PO SCH (08:52)
[2018-03-04] MEDS ORDERED: Atenolol 25 MG TAB PO SCH (09:00)
[2018-03-04] MEDS: Magnesium Oxide 250 MG TAB PO SCH (09:04)
[2018-03-04] MEDS: Famotidine 20 MG TAB PO SCH (09:04)
[2018-03-04] MEDS: Enoxaparin Sodium 40 MG/0.4 ML SYRINGE SC SCH (09:04)
[2018-03-04 10:57] VITALS: BP 96/68; TEMP 97.7
--- NOTE | 2018-03-04 12:24 | PDOC.PN ---
- Subjective Encounter Start Date: 03/04/18 Encounter Start Time: 07:30 Subjective: no sob, feels better -: wants to go home - Objective Resuscitation Status: Resuscitation Status FULL:Full Resuscitation MAR Reviewed: Yes Vital Signs & Weight: Vital Signs (12 hours) Temp Pulse Resp BP BP BP Pulse Ox 03/04/18 10:50 97.7 F 78 16 96/68 93 L 03/04/18 09:04 86 97/65 03/04/18 08:00 98.0 F 86 16 96 03/04/18 04:00 98.1 F 81 20 94/65 96 Weight Admit Weight 158 lb 6 oz Weight 158 lb 6 oz I&O: 03/03/18 03/04/18 03/05/18 06:59 06:59 06:59 Intake Total 830 1970 Balance 830 1970 Result Diagrams: 03/03/18 05:27 03/03/18 05:27 Phys Exam - Physical Examination HEENT: PERRLA, moist MMs Neck: no JVD, supple Respiratory: no wheezing, no rales Cardiovascular: RRR, no significant murmur Gastrointestinal: soft, non-tender, positive bowel sounds Musculoskeletal: no edema, pulses present Neurological: non-focal, moves all 4 limbs Psychiatric: A&O x 3 Dx/Plan (1) Acute on chronic diastolic (congestive) heart failure Code(s): I50.33 - ACUTE ON CHRONIC DIASTOLIC (CONGESTIVE) HEART FAILURE Status : Acute Comment: (2) Acute respiratory failure with hypoxia Code(s): J96.01 - ACUTE RESPIRATORY FAILURE WITH HYPOXIA Status: Resolved Comment: and chronic respiratory failure (3) Hypertension Code(s): I10 - ESSENTIAL (PRIMARY) HYPERTENSION Status: Chronic Qualifiers: Hypertension type: essential hypertension Qualified Code(s): I10 - Essential (primary) hypertension Comment: (4) Ovarian cancer Status: Chronic Qualifiers: Laterality: unspecified laterality Qualified Code(s): C56.9 - Malignant neoplasm of unspecified ovary (5) Chronic anemia Code(s): D64.9 - ANEMIA, UNSPECIFIED Status: Chronic - Plan hemostable -: per pt she has been cleared by and to go home -: may dc home -: low dose lasix and 25mg atenolol daily -: to record BP and pulse twice daily and record to f/u with PCP * .
--- NOTE | 2018-03-04 13:58 | DIS ---
DATE OF ADMISSION: 02/28/2018 DATE OF DISCHARGE: 03/04/2018 DISCHARGE DISPOSITION: To home. PRIMARY DISCHARGE DIAGNOSES: Acute on chronic diastolic heart failure, likely grade C; acute respiratory failure with hypoxia, resolved. SECONDARY DISCHARGE DIAGNOSES: Ovarian cancer, on chemotherapy; hypertension and chronic anemia. PROCEDURES DONE DURING HOSPITALIZATION: CT angio chest done showed no evidence of pulmonary embolism. There are moderate sized bilateral pleural effusions. Echo with 2D Doppler done showed an ejection fraction of 55% to 60%. There was grade I/III diastolic dysfunction, elevated right ventricular systolic pressure estimated at 43 mmHg, moderate sized pericardial effusion without tamponade. Blood cultures x2, no growth. Influenza A and B antigens were negative. Hemoglobin and hematocrit 9 and 28 with platelet count of 153. Had a white count of 25 with discharge numbers of 13. BUN 11, creatinine 0.6 and albumin is 2.9. DISCHARGE MEDICATIONS: Atenolol 25 mg p.o. daily, Lasix 20 mg p.o. daily, magnesium oxide 500 mg p.o. daily, multivitamin 1 tab once daily, Protonix 40 mg p.o. daily and potassium chloride 20 mEq p.o. daily. ALLERGIES: DIPHENHYDRAMINE, PENICILLIN, ERYTHROMYCIN and ADHESIVES. INPATIENT CONSULTS: Dr. Gillespie for Pulmonology, Dr. Christopher for Cardiology and Ms. Margaret Mazariegos, Nurse Practitioner for Oncology. BRIEF COURSE DURING HOSPITALIZATION: The patient initially got admitted on the with complaints of shortness of breath. A CT angio chest done on admission showed no evidence of PE, but had moderate bilateral pleural effusions and echo done later showed moderate pericardial effusion without tamponade. She was gently diuresed during her stay here. Initially, she was suspected to have sepsis with a fever of 101 and was on IV broad-spectrum antibiotics, which has been discontinued from the last 48 hours. The patient had acute respiratory failure with hypoxia needing oxygen on presentation. Currently, she is stable on room air at rest, but needs 2 liters nasal cannula on ambulation with patient getting short of breath even with minimal exertion and saturations dropping into 85%. She was closely monitored during her stay here. Her last chemotherapy was on topotecan and patient follows up at [facility] and locally with Dr. Pickett here. She is advised to eat high protein diet. Please see a [id number] documentation on [facility] for the day of discharge. [facility]
--- NOTE | 2018-03-04 15:06 | PRG ---
DATE OF SERVICE: 03/04/2018 SUBJECTIVE: Ms. Grnaados says she is feeling well. She is being discharged home today. I have given her my phone number and asked her to call me should she have any respiratory issues. PHYSICAL EXAMINATION: VITAL SIGNS: Heart rates in the 60s. Blood pressure 118/55, respiratory rate 14, oximetry is 92%. LUNGS: Remarkable for decreased breath sounds at her bases. HEART: Regular rhythm. IMPRESSION: 1. Bilateral pleural effusions, either secondary to ovarian cancer or chemotherapy. 2. Small pericardial effusion. 3. Diastolic dysfunction is not a clinical issue. She should stay on her beta paige. I do not th ink she needs daily Lasix. It is not felt that her effusions are secondary to congestive heart failu re. I will be happy to see her in the office. She will follow up with her doctors in [facility]. I ask ed her to make sure she had copy of her CD and her echocardiogram report before he left to [place].
--- NOTE | 2018-03-16 18:16 | PQF ---
I did not discharge this patient. Pls forward query to physician who discharged this patient. Thanks, Melissa Osman. [facility] Manager [employer] CORRINA Murillo MELISSA OSMAN [id number] CLINICAL DOCUMENTATION CLARIFICATION FORM: POST DISCHARGE Addendum to original discharge summary date: ____ Late entry note date: __ DATE: 03/16/2018 ATTN: MELISSA OSMAN MD Please exercise your independent, professional judgment in responding to the clarification form. Clinical indicators are provided on the bottom of this form for your review Please check appropriate box(s) to clarify if the following diagnosis has been ruled in or ruled out: SEPSIS [ ] Ruled in diagnosis [ ] Continue to treat [ ] Resolved [ ] Ruled out diagnosis [ ] Cannot rule out diagnosis [ ] Other diagnosis [ ] Unable to determine In addition, please specify: Present on Admission (POA): [ ] Yes [ ] No [ ] Unable to determine For continuity of documentation, please document condition throughout progress notes and discharge summary. Thank You. CLINICAL INDICATORS - SIGNS / SYMPTOMS / LABS DC Summary Blood cultures x2 no growth WBC of 25 with discharge numbers of 13 Initially, suspected to have sepsis with a fever of 101 and was on IV broad- spectrum antibiotics, which has been discontinued from the last 48 hours. H&P Pulse 55. Earlier, she had a pulse of 109 at 12:30 hours today. Leukocytosis with 25,600 wbc of which 61% are neutrophils and 22% are bands, lactic acid normal Sepsis, likely source of infection in the upper respiratory tract or urinary tract. Hospitalist PN 03/02 Sepsis, UTI ER SOB, Pulse 116, 105; Respirations 30; Temp of 100.0, WBC 25.6 Fever RISK FACTORS Metastatic Ovarian Cancer Infection Advancing Age TREATMENTS CBC, Blood cultures Broad spectrum antibiotics Vancomycin, Meropenem IV fluids (This form is maintained as a part of the permanent medical record) 2014 [employer]. All Rights Reserved [email or web address] [phone] [email or web address]
--- NOTE | 2018-03-16 18:28 | PQF ---
I did not discharge this patient. Pls forward query to physician who discharged this patient. Thanks, Melissa Osman. ASHWINCORRINAMELISSA MUÑOZ [id number] CLINICAL DOCUMENTATION CLARIFICATION FORM: POST DISCHARGE Addendum to original discharge summary date: ____ Late entry note date: __ DATE: 03/16/2018 ATTN: MELISSA OSMAN MD Please exercise your independent, professional judgment in responding to the clarification form. Clinical indicators are provided on the bottom of this form for your review Please check appropriate box(s): Conflicting documentation was noted in the Medical Record, please clarify if patient is being treated/monitored for: [ ] Acute on chronic diastolic heart failure [ ] Chronic diastolic heart failure [ ] Other diagnosis [ ] Unable to determine In addition, please specify: Present on Admission (POA): [ ] Yes [ ] No [ ] Unable to determine For continuity of documentation, please document condition throughout progress notes and discharge summary. Thank You. CLINICAL INDICATORS - SIGNS / SYMPTOMS/ LABS DC Summary Acute on chronic diastolic heart failure, likely grade C Ejection fraction 55%-60%, Grade I/III diastolic dysfunction H&P Diastolic congestive heart failure exacerbation Administer Furosemide, IV Lasix, check BNP, BNP was normal in December PN 03/04 Bilateral pleural effusions, either secondary to ovarian cancer or chemotherapy "Diastolic dysfunction is not a clinical issue. She should stay on beta paige. I do not think she needs daily Lasix. It is not felt that her pleural effusions are secondary to congestive heart failure." Consult 03/02 "BNP was only 62, which would argue against diastolic dysfunction/chf." Cardiology Consult 03/02 Chronic diastolic dysfunction, grade I/III "Most likely cause of bilateral pleural effusion is not related to her heart. This is not the way diastolic dysfunction behaves. She is not fluid overload on the pleural space." "Would favor pleural effusion to be related to either Taxotere or just malignancy." Hospitalist PN 03/04 Acute on chronic diastolic heart failure RISK FACTORS History diastolic dysfunction TREATMENTS Administer furosemide Check BNP IV Lasix, Atenolol Oxygen (This form is maintained as a part of the permanent medical record) 2014 [employer]. All Rights Reserved [email or web address] MTDD
--- NOTE | 2018-03-16 18:41 | PQF ---
I did not discharge this patient. Pls forward query to physician who discharged this patient. Thanks, Melissa Osman. CORRINA CHRISTOPHER DAVID [id number] CLINICAL DOCUMENTATION CLARIFICATION FORM: POST DISCHARGE Addendum to original discharge summary date: ____ Late entry note date: __ DATE: 03/16/2018 ATTN: MELISSA OSMAN MD Please exercise your independent, professional judgment in responding to the clarification form. Clinical indicators are provided on the bottom of this form for your review Please check appropriate box(s): [ ] Pleural effusion related to ovarian cancer [ ] Pleural effusion related to metastatic cancer, please specify site [ ] Pleural effusion related to chemotherapy [ ] Pleural effusion related to diastolic congestive heart failure [ ] Other diagnosis [ ] Unable to determine In addition, please specify: Present on Admission (POA): [ ] Yes [ ] No [ ] Unable to determine For continuity of documentation, please document condition throughout progress notes and discharge summary. Thank You. CLINICAL INDICATORS - SIGNS / SYMPTOMS / LABS DC Summary Acute on chronic diastolic heart failure, likely grade C H&P Bilateral pleural effusion on chest x-ray PN 03/04 Bilateral pleural effusions, either secondary to ovarian cancer or chemotherapy "It is not felt that her pleural effusions are secondary to congestive heart failure." PN 03/03 Pleural effusion and pericardial effusion ? related to chemotherapy vs ovarian cancer Consult 03/02 Bilateral pleural effusion for the last 15 months. Break in chemotherapy and her effusions improved when she was off chemotherapy Chronic left bilateral effusions Cardiology Consult 03/02 Bilateral pleural effusion, chronic diastolic dysfunction, grade I/III, stage III ovarian cancer "Most likely cause of bilateral pleural effusion is not related to her heart. This is not the way diastolic dysfunction behaves. She is not fluid overload on the pleural space." "Would favor pleural effusion to be related to either Taxotere or just malignancy." RISK FACTORS CHF Metastatic ovarian cancer TREATMENTS: Chest x-ray Lasix (This form is maintained as a part of the permanent medical record) 2015 [employer]. All Rights Reserved [email or web address] [phone] MTDD
--- NOTE | 2018-03-18 12:17 | PQF ---
CORRINA CHRISTOPHER VINAYA KUMAR MD [id number] [id number]- [id number] CLINICAL DOCUMENTATION CLARIFICATION FORM: POST DISCHARGE Addendum to original discharge summary date: ____ Late entry note date: __ DATE: 03/18/2018 ATTN: LILI LAMAR MD Please exercise your independent, professional judgment in responding to the clarification form. Clinical indicators are provided on the bottom of this form for your review Please check appropriate box(s) to clarify if the following diagnosis has been ruled in or ruled out: SEPSIS [ ] Ruled in diagnosis [ ] Continue to treat [ ] Resolved [ x ] Ruled out diagnosis [ ] Cannot rule out diagnosis [ ] Other diagnosis [ ] Unable to determine In addition, please specify: Present on Admission (POA): [ ] Yes [ ] No [ ] Unable to determine For continuity of documentation, please document condition throughout progress notes and discharge summary. Thank You. CLINICAL INDICATORS - SIGNS / SYMPTOMS / LABS DC Summary Blood cultures x2 no growth WBC of 25 with discharge numbers of 13 Initially, suspected to have sepsis with a fever of 101 and was on IV broad- spectrum antibiotics, which has been discontinued from the last 48 hours. H&P Pulse 55. Earlier, she had a pulse of 109 at 12:30 hours today. Leukocytosis with 25,600 WBC of which 61% are neutrophils and 22% are bands, lactic acid normal Sepsis, likely source of infection in the upper respiratory tract or urinary tract. Hospitalist PN 03/02 Sepsis, UTI ER SOB, Pulse 116, 105; Respirations 30; Temp of 100.0, WBC 25.6 Fever RISK FACTORS Metastatic ovarian cancer Infection Advancing age TREATMENTS CBC, Blood cultures Broad spectrum antibiotics Vancomycin, Meropenem IV fluids (This form is maintained as a part of the permanent medical record) 2014 [employer]. All Rights Reserved [email or web address] [phone] MTDD
--- NOTE | 2018-03-18 12:26 | PQF ---
CORRINA CHRISTOPHER VINAYA KUMAR MD [id number]- [id number] CLINICAL DOCUMENTATION CLARIFICATION FORM: POST DISCHARGE Addendum to original discharge summary date: ____ Late entry note date: __ DATE: 03/18/2018 ATTN: LILI LAMAR MD Please exercise your independent, professional judgment in responding to the clarification form. Clinical indicators are provided on the bottom of this form for your review Please check appropriate box(s): Conflicting documentation was noted in the Medical Record, please clarify if patient is being treated/monitored for: [ x ] Acute on chronic diastolic heart failure [ ] Chronic diastolic heart failure [ ] Other diagnosis [ ] Unable to determine In addition, please specify: Present on Admission (POA): [x ] Yes [ ] No [ ] Unable to determine For continuity of documentation, please document condition throughout progress notes and discharge summary. Thank You. CLINICAL INDICATORS - SIGNS / SYMPTOMS/ LABS DC Summary Acute on chronic diastolic heart failure, likely grade C Ejection fraction 55%-60%, Grade I/III diastolic dysfunction H&P Diastolic congestive heart failure exacerbation Administer furosemide, IV Lasix, check BNP, BNP was normal in December PN 03/04 Bilateral pleural effusions, either secondary to ovarian cancer or chemotherapy "Diastolic dysfunction is not a clinical issue. She should stay on beta paige. I do not think she needs daily lasix. It is not felt that her pleural effusions are secondary to congestive heart failure." Consult 03/02 "BNP was only 62, which would argue against diastolic dysfunction/chf." Cardiology Consult 03/02 Chronic diastolic dysfunction, grade I/III "Most likely cause of bilateral pleural effusion is not related to her heart. This is not the way diastolic dysfunction behaves. She is not fluid overload on the pleural space." "Would favor pleural effusion to be related to either Taxotere or just malignancy." Hospitalist PN 03/04 Acute on chronic diastolic heart failure RISK FACTORS History of diastolic dysfunction TREATMENT Echo Administer Furosemide Check BNP IV Lasix, Atenolol Oxygen (This form is maintained as a part of the permanent medical record) 2014 [employer]. All Rights Reserved [email or web address] [phone] MTDD
--- NOTE | 2018-03-18 12:36 | PQF ---
CORRINA CHRISTOPHER VINAYA KUMAR MD [id number] [id number]- 4422 [id number] CLINICAL DOCUMENTATION CLARIFICATION FORM: POST DISCHARGE Addendum to original discharge summary date: ____ Late entry note date: __ DATE: 03/18/2018 ATTN: LILI LAMAR MD Please exercise your independent, professional judgment in responding to the clarification form. Clinical indicators are provided on the bottom of this form for your review Please check appropriate box(s): [ ] Pleural effusion related to ovarian cancer [ ] Pleural effusion related to metastatic cancer, please specify site of metastasis [ ] Pleural effusion related to chemotherapy [ ] Pleural effusion related to diastolic congestive heart failure [ ] Other diagnosis [ x] Unable to determine In addition, please specify: Present on Admission (POA): [ x ] Yes [ ] No [ ] Unable to determine For continuity of documentation, please document condition throughout progress notes and discharge summary. Thank You. CLINICAL INDICATORS - SIGNS / SYMPTOMS / LABS DC Summary Acute on chronic diastolic heart failure, likely grade C H&P Bilateral pleural effusion on chest x-ray PN 03/04 Bilateral pleural effusions, either secondary to ovarian cancer or chemotherapy "It is not felt that her pleural effusions are secondary to congestive heart failure." PN 03/03 Pleural effusion and pericardial effusion ? related to chemotherapy vs ovarian cancer Consult 03/02 Bilateral pleural effusion for the last 15 months. Break in chemotherapy and her effusions improved when she was off chemotherapy Chronic left bilateral effusions Cardiology Consult 03/02 Bilateral pleural effusion, Chronic diastolic dysfunction, grade I/III, Stage III ovarian cancer "Most likely cause of bilateral pleural effusion is not related to her heart. This is not the way diastolic dysfunction behaves. She is not fluid overload on the pleural space." "Would favor pleural effusion to be related to either Taxotere or just malignancy." RISK FACTORS Metastatic ovarian cancer CHF TREATMENTS Lasix Chest x-ray (This form is maintained as a part of the permanent medical record) 2014 [employer]. All Rights Reserved [email or web address] [phone] MTDD
== END 2018-03-04 11:03 | disposition home or self-care (01) | DRG 291 ==
LOC: ERS 10:52 → T4-B 14:14
PROVIDERS: ADMIT Internal Medicine; ATTEND Internal Medicine
DX: I11.0 Hypertensive heart disease with heart failure (principal); J96.21 Acute and chronic respiratory failure with hypoxia; C79.9 Secondary malignant neoplasm of unspecified site; J90 Pleural effusion, not elsewhere classified; C56.9 Malignant neoplasm of unspecified ovary; I31.3 Pericardial effusion (noninflammatory); D64.9 Anemia, unspecified; N39.0 Urinary tract infection, site not specified; I50.33 Acute on chronic diastolic (congestive) heart failure; E87.6 Hypokalemia
CPT/HCPCS: 36415; 71045; 71275; 80048; 80053; 81003; 81015; 82550; 82553; 83605; 83735; 83880; 84075; 84484; 85025; 87040; 87804; 93005; 93306; 96361; 96365; 96366; A4216; J1642; J1650; J1940; J2185; J3370; J7050

== ENCOUNTER 2018-03-30 10:20 | Outpatient (CLI) | payer MEDICARE, BC ==
--- NOTE | 2018-03-30 12:06 | RAD ---
CHEST TWO VIEWS: History: Dyspnea. Comparison: 02-28-18 FINDINGS: Cardiac silhouette is predominately obscured by bilateral pleural fluid and bilateral perihilar and b ibasilar infiltrates and atelectasis that are similar in appearance to the prior CT. Mediastinum is m idline with implanted port evident. No pneumothorax. IMPRESSION: 1. Bilateral pleural fluid and basilar atelectasis appear stable to CT from 02-28-18. POS: [facility]
== END 2018-03-30 10:21 | disposition home or self-care (01) ==
LOC: RAD 10:20
PROVIDERS: ATTEND Internal Medicine Critical Care Medicine
DX: R06.00 Dyspnea, unspecified (principal); J98.11 Atelectasis; J94.8 Other specified pleural conditions
CPT/HCPCS: 71046

== ENCOUNTER 2018-04-17 15:50 | Day surgery (SDC) | payer MEDICARE, BC ==
[2018-04-17] MEDS ORDERED: Acetaminophen 500 MG TAB PO SCH (16:45)
[2018-04-17 19:53] LABS: Hemoglobin 9.5 g/dL (12.0-16.0)
[2018-04-17 22:30] VITALS: BP 115/55; TEMP 97.2
== END 2018-04-17 22:32 | disposition home or self-care (01) ==
LOC: ONC/OP 15:50
PROVIDERS: ATTEND Internal Medicine Hematology & Oncology
PROC: 30233N1 Transfusion of Nonautologous Red Blood Cells into Peripheral Vein, Percutaneous Approach (ICD-10-PCS; principal; 2018-04-17)
DX: C56.9 Malignant neoplasm of unspecified ovary (principal); D63.0 Anemia in neoplastic disease; D69.6 Thrombocytopenia, unspecified; I11.0 Hypertensive heart disease with heart failure; I50.32 Chronic diastolic (congestive) heart failure; Z88.0 Allergy status to penicillin; Z88.1 Allergy status to other antibiotic agents; Z88.8 Allergy status to other drugs, medicaments and biological substances; Z91.048 Other nonmedicinal substance allergy status; Z79.899 Other long term (current) drug therapy; Z98.890 Other specified postprocedural states
CPT/HCPCS: 36415; 36430; 85014; 85018; 86850; 86900; 86901; P9016

== ENCOUNTER 2018-05-26 18:05 | Inpatient (IN) | payer MEDICARE, BC ==
[~2018-05-26 18:05] MED LIST changes: +Heparin 1,000 UNITS/ML VIAL ONE; -Iopamidol 370 76% 100 ML VIAL ONE
[2018-05-26] MEDS ORDERED: Cefepime 1 GM in Sodium Chloride 0.9% 100 ML IVPB SCH (19:00)
[2018-05-26 19:10] LABS: Hemoglobin 10.8 g/dL (12.0-16.0); Mean Corpuscular HGB CONC 32.4 g/dL (32.0-36.0); Mean Corpuscular Hemoglobin 30.6 pg (27.0-31.0); Mean Corpuscular Volume 94.5 fL (78.0-98.0); Mean Platelet Volume 8.1 fL (7.4-10.4); Platelet Count 274 thou/uL (130-400); RBC Distribution Width 20.7 % (11.5-14.5); Red Blood Cell (RBC) Count 3.54 mill/uL (4.20-5.40); White Blood Cell (WBC) Count 15.9 thou/uL (4.8-10.8)
--- NOTE | 2018-05-26 19:18 | RAD ---
SINGLE VIEW OF THE CHEST: 05/26/18 COMPARISON: 02/28/18. HISTORY: Infection in the Port-A-Cath in the right chest. Fever. FINDINGS: Single view of the chest shows a normal sized cardiomediastinal silhouette. The Mediport is unchanged in position. There is a moderate right pleural effusion with adjacent atelectasis. Degenerative carlos ges are seen in the spine. IMPRESSION: Moderate right pleural effusion. POS: [facility]
[2018-05-26 19:29] LABS: ALT (SGPT) 13 U/L (8-55); AST (SGOT) 44 U/L (5-34); Albumin 3.5 g/dL (3.4-4.8); Alkaline Phosphatase 120 U/L (40-150); Anion Gap 18 mmol/L (10-20); BUN (Urea Nitrogen) 9 mg/dL (9.8-20.1); Bilirubin, Total 0.3 mg/dL (0.2-1.2); Calc. Creatinine Clearance 0 mL/min (70-130); Calcium 9.1 mg/dL (7.8-10.44); Carbon Dioxide 20 mmol/L (23-31); Chloride 102 mmol/L (98-107); Estimated GFR-MDRD 87; Glucose 89 mg/dL (83-110); Potassium 5.5 mmol/L (3.5-5.1); Protein, Total 7.5 g/dL (6.0-8.3); Sodium 134 mmol/L (136-145)
[2018-05-26 19:33] LABS: #Eosinphils 0.1 thou/uL (0.0-0.7); #Lymphocytes 1.4 thou/uL (1.20-3.40); #Monocytes 0.7 thou/uL (0.11-0.59); #Neutrophils 13.7 thou/uL (1.40-6.50); %Eosinophils 0.5 % (0.0-10.0); %Lymphocytes 8.9 % (21.0-51.0); %Monocytes 4.2 % (0.0-10.0); %Neutrophils 86.4 % (42.0-75.0); Anisocytosis SLIGHT = 6-15 cells (100X) (0-5/hpf); MDiff Complete? YES; PLT Morphology Comment Appears Adequate
[2018-05-26 20:33] LABS: Bilirubin Negative (Negative); Clarity CLEAR (Clear); Glucose, Urine (Dipstick) Negative (Negative); Leukocyte Negative (Negative); Nitrite Negative (Negative); Protein, Urine (Dipstick) Negative (Neg-Trace); Specific Gravity, Urine 1.004 (1.002-1.036); Urobilinogen 0.2 mg/dL (0.2-1.0)
[2018-05-26 20:34] LABS: Blood, Urine Negative (Negative)
[2018-05-26] MEDS ORDERED: Ondansetron HCl/PF 4 MG/2 ML Vial IVP PRN (21:29)
[2018-05-26 22:47] VITALS: BMI 26.6
[2018-05-27 06:10] LABS: Anion Gap 11 mmol/L (10-20); BUN (Urea Nitrogen) 5 mg/dL (9.8-20.1); Calc. Creatinine Clearance 88 mL/min (70-130); Calcium 8.8 mg/dL (7.8-10.44); Carbon Dioxide 24 mmol/L (23-31); Chloride 104 mmol/L (98-107); Estimated GFR-MDRD Greater than 90; Glucose 91 mg/dL (83-110); Sodium 135 mmol/L (136-145)
[2018-05-27 06:17] LABS: #Eosinphils 0.1 thou/uL (0.0-0.7); #Lymphocytes 0.8 thou/uL (1.20-3.40); #Monocytes 0.5 thou/uL (0.11-0.59); #Neutrophils 7.2 thou/uL (1.40-6.50); %Eosinophils 1.2 % (0.0-10.0); %Lymphocytes 9.5 % (21.0-51.0); %Monocytes 5.4 % (0.0-10.0); %Neutrophils 83.9 % (42.0-75.0); Hemoglobin 9.5 g/dL (12.0-16.0); Mean Corpuscular HGB CONC 31.5 g/dL (32.0-36.0); Mean Corpuscular Hemoglobin 29.5 pg (27.0-31.0); Mean Corpuscular Volume 93.7 fL (78.0-98.0); Mean Platelet Volume 7.2 fL (7.4-10.4); Platelet Count 288 thou/uL (130-400); RBC Distribution Width 21.2 % (11.5-14.5); Red Blood Cell (RBC) Count 3.22 mill/uL (4.20-5.40); White Blood Cell (WBC) Count 8.6 thou/uL (4.8-10.8)
[2018-05-27] MEDS: Acetaminophen 325 MG TAB PO PRN ×3 (07:35→18:18)
[2018-05-27] MEDS ORDERED: Enoxaparin Sodium 40 MG/0.4 ML SYRINGE SC SCH (09:00)
[2018-05-27] MEDS: Multivit, Therapeutic 1 TAB PO SCH (09:24)
[2018-05-27] MEDS: Magnesium Oxide 250 MG TAB PO SCH (09:24)
[2018-05-27] MEDS: Atenolol 25 MG TAB PO SCH (09:24)
[2018-05-27] MEDS: Cefepime 1 GM in Sodium Chloride 0.9% 100 ML IVPB SCH ×2 (09:25→21:02)
--- NOTE | 2018-05-27 11:02 | HP ---
CODE STATUS: FULL CODE. TIME OF EVALUATION: 8:50 p.m. PRIMARY CARE PHYSICIAN: Dr. Mis Felix CHIEF COMPLAINT: Redness on the MediPort area. HISTORY OF PRESENT ILLNESS: A 72 years old female patient with past medical history of ovarian cancer and going through chemo, the cancer has been treated for 4 years now, the patient's last treatment for chemo was in April, next will be on Monday. The patient reported that she has noticed the redness, tenderness, increased temperature in the area of the MediPort in the right side of the chest, this is new for her she has the device for 4 years, no clear triggers, no alleviating factors. She received some treatment with zithro at home, but it did not improve. Symptoms are reported as mild to moderate, worsening associated with fever. REVIEW OF SYSTEMS: Constitutional: Fever, no chills, generalized weakness. Respiratory: No cough, no sputum production or shortness of breath. Cardiovascular: No chest pain, palpitation or shortness of breath. Gastrointestinal: Nausea, no vomiting, diarrhea or abdominal pain. Central nervous system: No dizziness, headache or feeling lightheaded. Genitourinary: No burning on urination. Extremities: No leg swelling. Skin: The patient has redness, swelling, and increased tenderness in the right upper chest in the MediPort area. All other systems reviewed were negative except for the findings mentioned above. PAST MEDICAL HISTORY: Ovarian cancer from chemotherapy, history of hypertension. PAST SURGICAL HISTORY: Hysterectomy, colostomy, tonsillectomy, right chest MediPort placement. PSYCHIATRIC HISTORY: No previous psychiatric history. SOCIAL HISTORY: No alcohol, no drugs. No smoking history. KNOWN ALLERGIES: ADHESIVE BANDAGE, BENADRYL, ERYTHROMYCIN, PENICILLINS. REPORTED MEDICATIONS: Magnesium, potassium chloride, [place], atenolol, Protonix , loratadine, azithromycin. PHYSICAL EXAMINATION: VITAL SIGNS: On presentation, blood pressure 106/78 with heart rate 98, respiratory rate was 20, temperature 98.5, oxygen saturation 98 on room air. GENERAL APPEARANCE: The patient is alert, oriented, not in acute distress. HEENT: Eyes: Normal conjunctivae, moist oral mucosa, anicteric. NECK: No JVD. RESPIRATORY: Bilateral air entry. No rales, no wheezing. Symmetric expansion. CARDIOVASCULAR: Normal rate, regular rhythm, no murmurs, no gallop, no edema. ABDOMEN: Soft, normal bowel sounds, baseline. Full range of motion and strength. No tenderness. SKIN: Warm and intact. No pallor, no rash except for the right upper chest where she has the MediPort device. There is an area of x2 inches of redness, tenderness. NEUROLOGIC: Baseline sensory. No evidence of any new focal weakness, baseline speech. Cranial nerves seem to be intact. PSYCHIATRIC: Good mood. No anxiety, oriented, optimal judgment. LABORATORY DATA: Reviewed. White count 15.9, hemoglobin 10, MCV 94, platelet count 274. Chemistry: Sodium 134, potassium 5.5, chloride 102, carbon dioxide 20, anion gap 18, BUN 9, creatinine 0.6, GFR 87, glucose 89, lactic acid 2.0, calcium 9.1, AST 44, ALT 13, alkaline phosphatase 120, serum total protein 7.5, albumin 3.5, globulin 4.0, bilirubin ratio 0.9. Urine was negative. Chest x-ray was reviewed. The patient had moderate right pleural effusion as per patient is chronic. EKG as discussed with the performing physician from the ER. The patient has normal sinus rhythm at the rate of 89, low voltage QRS, no significant findings were seen on the EKG. ASSESSMENT AND PLAN: 1. Sepsis. The patient has leukocytosis. Also, reported having fever, heart rate above 90. The source is a MediPort infection and possible bloodstream infection, likely a Strep versus Staph infection. The patient has been started on broad spectrum antibiotics, patient is a weak host given underlying cancer and chemotherapy. We will follow cultures, monitor the patient clinically, and we will adjust the treatment depending on sensitivity. 2. History of uterine cancer, on chemo. The patient will need to follow up as outpatient for further cancer treatment. 3. MediPort malfunction due to infection. Surgical consultation has been placed, most likely MediPort will need to be removed and placement of a new device will be considered. 4. Hyponatremia. Sodium 134, is in the low side, replace electrolytes. No need for any acute intervention, this problem is acute and mild. 5. Hyperkalemia. This is mild, acute, potassium of 5.5, we will monitor, no need for any acute intervention at this point. 6. Deep venous thrombosis prophylaxis. 7. Right-sided pleural effusion, patient has reported that her primary care doctor has told her that this is due to cancer/treatment, no acute intervention is needed at this point. MTDD
[2018-05-27] MEDS ORDERED: HYDROcodone/Acetaminophen 5/325 mg Tablet PO PRN (13:28)
[2018-05-27] MEDS ORDERED: Sodium Chloride 0.9% 500 ML IV SCH (13:30)
[2018-05-27] MEDS: Vancomycin HCl 1.25 GM in Sodium Chloride 0.9% 250 ML 250 ML IVPB SCH (14:16)
--- NOTE | 2018-05-27 22:16 | PDOC.PN ---
- Subjective Encounter Start Date: 05/27/18 Encounter Start Time: 10:30 -: old records requested/rev (Admitted in February for Hypoxia/CHF exacerbation) Patient seen and examined for Sepsis/Mediport infection. Feels slightly better with antibiotics. Still has redness over the port. No other complaints. No overnight events - Objective Resuscitation Status: Resuscitation Status FULL:Full Resuscitation MAR Reviewed: Yes Vital Signs & Weight: Vital Signs (12 hours) Temp Pulse Resp BP Pulse Ox 05/27/18 20:29 97.5 F L 78 16 109/72 95 05/27/18 16:26 97.8 F 76 15 114/73 96 05/27/18 11:22 97.9 F 79 14 113/75 94 L Weight Weight 141 lb 2 oz I&O: 05/26/18 05/27/18 05/28/18 06:59 06:59 06:59 Intake Total 1270 Output Total 250 Balance 1020 Result Diagrams: 05/28/18 04:22 05/28/18 04:22 Additional Labs: Microbiology 05/26/18 20:20 Urine clean catch Urine Culture - Preliminary NO GROWTH AT 12 HOURS 05/26/18 18:30 Venous blood - Right Arm Blood Culture - Preliminary Specimen has been received and culture in progress. No Growth to date. 05/26/18 18:30 Venous blood - Left Hand Blood Culture - Preliminary Specimen has been received and culture in progress. No Growth to date. Radiology Reviewed by me: Yes (CXR - Mod Rt effusion) Phys Exam - Physical Examination Constitutional: NAD HEENT: PERRLA, moist MMs Neck: no JVD Respiratory: no wheezing, no rales, no rhonchi Dec AE at Rt bases Cardiovascular: RRR, no significant murmur, no rub no heaves Gastrointestinal: soft, non-tender, no distention, positive bowel sounds Musculoskeletal: no edema, pulses present Neurological: non-focal, normal sensation, moves all 4 limbs Psychiatric: normal affect, A&O x 3 Skin: no rash Deviation from normal: Erythema over the Mediport Dx/Plan (1) Sepsis Code(s): A41.9 - SEPSIS, UNSPECIFIED ORGANISM Status: Acute Comment: due to Mediport infection (2) Port or reservoir infection Code(s): T80.212A - LOCAL INFECTION DUE TO CENTRAL VENOUS CATHETER, INIT ENCNTR Status: Acute Comment: Mediport infection - on Vancomycin and Cefepime (3) Hyperkalemia Code(s): E87.5 - HYPERKALEMIA Status: Acute Comment: prob due to Metabolic acidosis - improving (4) Ovarian cancer Status: Chronic Comment: on Chemo (5) HTN (hypertension) Code(s): I10 - ESSENTIAL (PRIMARY) HYPERTENSION Status: Chronic Comment: on Atenolol - Plan continue antibiotics, out of bed/ambulate, DVT proph w/SCDs Change IVF to KVO due to Mod pleural effusion - Also tolerating PO well -: AM labs -: Consult ID, Await Surgery input -: Await cultures, Cont Atenolol -: Cont other meds as below, Change Lasix to PRN, Hold PO Potassium Review of Systems - Review of Systems Respiratory: negative: Cough, Dry, Shortness of Breath, Hemoptysis, SOB with Excertion, Pleuritic Pain, Sputum, Wheezing Cardiovascular: negative: chest pain, palpitations, orthopnea, paroxysmal nocturnal dyspnea, edema, light headedness, other Gastrointestinal: negative: Nausea, Vomiting, Abdominal Pain, Diarrhea, Constipation, Melena, Hematochezia, Other - Medications/Allergies Allergies/Adverse Reactions: Allergies Allergy/AdvReac Type Severity Reaction Status Date / Time adhesive Allergy Verified 12/24/17 21:03 diphenhydramine Allergy Hives Verified 12/24/17 21:03 [From Benadryl] erythromycin base Allergy Nausea Verified 12/24/17 21:03 Penicillins Allergy Verified 12/24/17 21:03 Medications: Current Medications Acetaminophen (Tylenol) 650 mg PO Q4H PRN PRN Reason: Headache/Fever or Pain Last Admin: 05/27/18 18:18 Dose: 650 mg Hydrocodone Bitart/Acetaminophen ([place] 5/325) 1 tab PO Q4H PRN PRN Reason: Moderate Pain (4-6) Atenolol (Tenormin) 25 mg PO DAILY [facility] Last Admin: 05/27/18 09:24 Dose: 25 mg Furosemide (Lasix) 20 mg PO DAILY PRN PRN Reason: Edema Cefepime HCl 1 gm/ Sodium (Chloride) 100 mls @ 200 mls/hr IVPB Q12HR [facility] Last Admin: 05/27/18 21:02 Dose: 100 mls Vancomycin HCl 1.25 gm/ Sodium (Chloride) 250 mls @ 166.667 mls/hr IVPB 1500 [facility] Last Admin: 05/27/18 14:16 Dose: 250 mls Sodium Chloride (Normal Saline 0.9%) 500 mls @ 30 mls/hr IV .[id number] [facility] Stop: 05/27/18 23:31 Last Admin: 05/27/18 14:15 Dose: 500 mls Magnesium Oxide (Magnesium Oxide) 500 mg PO DAILY [facility] Last Admin: 05/27/18 09:24 Dose: 500 mg Miscellaneous Medication (Pharmacy To Dose) 0 each IVPB . PRN PRN Reason: PHARMACY TO DOSE VANC Multivitamins (Theragran) 1 tab PO DAILY [facility] Last Admin: 05/27/18 09:24 Dose: 1 tab Ondansetron HCl (Zofran) 4 mg IVP Q6H PRN PRN Reason: Nausea/Vomiting Pantoprazole Sodium (Protonix) 40 mg PO DAILY [facility] Last Admin: 05/27/18 07:35 Dose: 40 mg
[2018-05-28] MEDS: Acetaminophen 325 MG TAB PO PRN (02:36)
[2018-05-28 04:59] LABS: Albumin 3.1 g/dL (3.4-4.8); Anion Gap 11 mmol/L (10-20); BUN (Urea Nitrogen) 6 mg/dL (9.8-20.1); BUN/Creatinine Ratio 9.84; Calc. Creatinine Clearance 85 mL/min (70-130); Carbon Dioxide 27 mmol/L (23-31); Chloride 106 mmol/L (98-107); Estimated GFR-MDRD Greater than 90; Glucose 90 mg/dL (83-110); Magnesium 1.6 mg/dL (1.6-2.6); Phosphorus 5.1 mg/dL (2.3-4.7); Sodium 140 mmol/L (136-145)
[2018-05-28 05:42] LABS: #Eosinphils 0.4 thou/uL (0.0-0.7); #Monocytes 0.4 thou/uL (0.11-0.59); #Neutrophils 5.7 thou/uL (1.40-6.50); %Basophils 0.1 % (0.0-1.0); %Eosinophils 5.1 % (0.0-10.0); %Lymphocytes 13.1 % (21.0-51.0); %Monocytes 5.8 % (0.0-10.0); Anisocytosis SLIGHT = 6-15 cells (100X) (0-5/hpf); Hemoglobin 9.5 g/dL (12.0-16.0); MDiff Complete? YES; Mean Corpuscular HGB CONC 31.8 g/dL (32.0-36.0); Mean Corpuscular Hemoglobin 30.2 pg (27.0-31.0); Mean Corpuscular Volume 94.8 fL (78.0-98.0); Mean Platelet Volume 6.8 fL (7.4-10.4); Ovalocytes SLIGHT = 2-5 cells (100X) (0-1/hpf); Platelet Count 344 thou/uL (130-400); RBC Distribution Width 21.1 % (11.5-14.5); Red Blood Cell (RBC) Count 3.16 mill/uL (4.20-5.40); White Blood Cell (WBC) Count 7.5 thou/uL (4.8-10.8)
[2018-05-28] MEDS: Cefepime 1 GM in Sodium Chloride 0.9% 100 ML IVPB SCH (08:41)
[2018-05-28] MEDS: Atenolol 25 MG TAB PO SCH (08:43)
[2018-05-28] MEDS ORDERED: Furosemide 20 MG TAB PO SCH (09:00)
[2018-05-28] MEDS: Sodium Chloride 0.9% 1,000 ML IV SCH (09:01)
[2018-05-28] MEDS: Multivit, Therapeutic 1 TAB PO SCH (09:04)
[2018-05-28] MEDS: Magnesium Oxide 250 MG TAB PO SCH (09:04)
[2018-05-28] MEDS ORDERED: Lidocaine 2% 10 ML INJ ONE (09:51)
[2018-05-28] MEDS ORDERED: Bupivacaine/Epinephrine 0.25% 30 ML VIAL ONE (09:51)
[2018-05-28] MEDS ORDERED: Propofol 500 MG/50 ML VIAL ONE (09:58)
[2018-05-28] MEDS ORDERED: Fentanyl 100 MCG/2 ML VIAL ONE ×2 (09:58→10:56)
[2018-05-28] MEDS ORDERED: Promethazine HCl 25 MG/ML VIAL SLOW IVP PRN (11:28)
[2018-05-28] MEDS ORDERED: Meperidine HCl/PF 25 MG/ML VIAL SLOW IVP PRN (11:28)
[2018-05-28] MEDS ORDERED: Ketorolac Tromethamine 30 MG/ML VIAL IVP PRN (11:28)
[2018-05-28] MEDS ORDERED: Morphine Sulfate 2 MG/ML SYRINGE SLOW IVP PRN (11:28)
[2018-05-28] MEDS ORDERED: Promethazine HCl 25 MG/ML VIAL IM PRN (11:28)
[2018-05-28] MEDS ORDERED: Ondansetron HCl/PF 4 MG/2 ML Vial IVP PRN (11:28)
--- NOTE | 2018-05-28 11:49 | CON ---
CHIEF COMPLAINT: MediPort infection. HISTORY OF PRESENT ILLNESS: This is a 72-year-old female with 4-year history of ovarian cancer treat ed at [facility] in [place] and has a MediPort, still receiving chemo. Last week, she started havi ng fever, redness, found to have an infection. PAST MEDICAL HISTORY: Hypertension. She has had ovarian cancer with invasion into the colon, had to have the rectum removed. PAST SURGICAL HISTORY: Hysterectomy, partial colectomy, MediPort, tonsil and adenoidectomy. MEDICATIONS: Atenolol, magnesium, potassium, Lasix, multivitamins. ALLERGIES: To ERYTHROMYCIN, PENICILLIN, and BENADRYL. PHYSICAL EXAMINATION: VITAL SIGNS: Temperature 98.2, pulse 86, blood pressure 130/81. GENERAL: Well-developed, well-nourished female. HEENT: She has alopecia from chemo. LUNGS: Clear. HEART: Regular rate and rhythm. CHEST: She has a red streak along the tract of the catheter and a red, tender MediPort consistent wi th infection. ABDOMEN: Soft, nondistended, nontender. EXTREMITIES: Unremarkable. LABORATORY DATA AND X-RAY FINDINGS: White count initially was 17, now it is 7.5, H&H is 9.5 and 30, platelet count is 344. Electrolytes are fine. Chest x-ray shows a right pleural effusion. ASSESSMENT: Infected MediPort. PLAN: Remove. CONSENT: I discussed the planned procedure as well as risk of bleeding, infection. She understands and gives informed consent.
[2018-05-28] MEDS: HYDROcodone/Acetaminophen 10/325 mg Tablet PO PRN ×3 (12:59→21:32)
--- NOTE | 2018-05-28 13:11 | OP ---
PREOPERATIVE DIAGNOSIS: Infected MediPort. SURGEON: John Paul Keenan M.D. PROCEDURE PERFORMED: Removal of MediPort. INDICATIONS: This is a 72-year-old female with extensive ovarian cancer, requiring chemotherapy, who has redness and swelling and tenderness as well as leukocytosis of the existing MediPort. FINDINGS: There was some fluid around the port that was sent for culture and Gram stain. PROCEDURE: After informed consent was obtained, the patient was taken to the operating room, given t otal intravenous anesthesia, placed in the supine position. Her chest was prepped and draped in usua l fashion. Local anesthesia infiltrated subcutaneously and deep. A transverse incision was performe d through the old scar. Subcutaneous divided sharply down to the port. The port was removed. It wa s cultured around the cavity as well as up the tract. Then the port and tubing were removed. The ti p of the tubing was cut off and placed in a sterile cup for culture as well. The tract was dilated u p so it could be irrigated thoroughly. Then hemostasis achieved with electrocautery. The wound was packed open with Betadine gauze. Sterile bandage applied. The patient tolerated the procedure well and was transferred to recovery in good condition. Sponge and needle count verified and correct x2.
[2018-05-28] MEDS ORDERED: Lidocaine 1% PF 5 ML VIAL ONE (14:52)
[2018-05-28] MEDS ORDERED: PROPOFOL 200 MG/20 ML VIAL ONE (14:52)
[2018-05-28] MEDS: Vancomycin HCl 1.25 GM in Sodium Chloride 0.9% 250 ML 250 ML IVPB SCH (15:03)
--- NOTE | 2018-05-28 15:03 | SPC ---
SONOGRAPHICALLY GUIDED LEFT UPPER EXTREMITY PICC PLACEMENT: History: Ovarian cancer. FINDINGS: After explaining the procedure and answering all questions, left upper extremity was prepped and drap ed in the usual sterile fashion. Sterile technique, buffered local anesthesia, sonographic guidance, and a 22 gauge needle were used to carefully access the left basilic vein. Standard technique was the n used to place the tip of a 5 Malay single lumen PICC so that the tip lies at the level of the supe rior vena cava. Catheter was flushed and secured externally. The patient tolerated the procedure well and was returned in unchanged condition. Fluoro time = 0 seconds. IMPRESSION: Left upper extremity PICC is ready for use. POS: [facility]
[2018-05-28 15:27] LABS: Vancomycin, Trough 5.5 ug/mL
--- NOTE | 2018-05-28 21:05 | CON ---
DATE OF CONSULTATION: 05/28/2018 REASON FOR CONSULTATION: MediPort inflammatory process. HISTORY OF PRESENT ILLNESS: A 72-year-old patient with a history of ovarian cancer, being treated wi th palliative chemotherapy through a right-sided port. I believe the regimen includes Avastin and pl atinum based compound. She has received chemo for the past 4 years and was scheduled for another cou rse in a few days when she noticed inflammatory changes at the area of the right-sided MediPort. She was given oral azithromycin which did not help and then she developed some fever, was admitted. Dr. Keeann has removed the device. The operative note has been reviewed. The local anesthetic was infil trated subcutaneously in a transverse incision performed through the old scar. Port was removed. Tu shannan was removed. Currently, she has moderate pain at the site. No headaches, visual symptoms, sore throat, odynophagia, dysphagia, no cough or sputum production or chest pain, no abdominal pain, no j oint symptoms. No neurological symptoms. PAST MEDICAL HISTORY: Includes ovarian cancer with intraabdominal extension stage III. She had hyst erectomy with debulking surgery 3-1/2 years ago elsewhere with colostomy placement, left side, tonsil lectomy, also hypertension. ALLERGIES: BENADRYL, PENICILLIN, ERYTHROMYCIN. CURRENT MEDICATIONS: Tylenol, [place], cefepime, magnesium, morphine, ondansetron, and vancomycin. SOCIAL HISTORY: Patient is a former smoker, not anymore. Lives with family. PHYSICAL EXAMINATION: VITAL SIGNS: Temperature max 98.4-99.1, blood pressure 130/80, pulse 86, respirations 14, O2 sat 93- 100 on 2 liters nasal cannula. SKIN: Shows the right wound following removal of the port packed. She has a peripheral IV access an d is voiding in the toilet, colostomy in the left side of the abdomen. No lymphadenopathy. HEENT: Ocular movements conjugate. Sclerae white. Pupils are equal. Oral cavity moist. NECK: Supple, no jugular venous distention. LUNGS: With symmetric clear breath sounds. HEART: S1, S2, regular rate. No S3, S4. ABDOMEN: Soft, not distended or tender. No ascites. EXTREMITIES: No joint inflammatory activity. Moves extremities on command. NEUROLOGIC: Cognitive function appears to be intact. LABORATORY DATA: White cell count is down from 15-7.5, hemoglobin 9.5, platelets 344 with 76% neutro phils. Sodium 140, creatinine 0.61, AST 44, ALT 13, alkaline phosphatase 120, albumin 3.5. Urinalys is was normal. Microbiology: I have 2 sets of blood cultures and urine cultures yet negative and no organisms seen in the port exudate Gram stain and cultures are still pending. Chest x-ray from this admission with moderate right pleural effusion with adjacent atelectases. There is a chest CTA from 02/28/2018 with no pulmonary embolism. ASSESSMENT: 1. Ovarian cancer stage 3, on chemotherapy through a port. 2. Port infection. 3. Pleural effusion. DISCUSSION: The patient has had the device removed and now we will need to monitor blood cultures. If blood cultures remain negative, then wait for the final identification of the organism from the si te to adjust antimicrobial therapy and plan outpatient management. Again, if blood cultures are nega tive, then we will have to consider a shorter course of treatment, may need a secondary closure of th e wound once there is proper granulation. If blood cultures are positive, then depending on the orga nism, she would need establishment of IV access for IV antimicrobial therapy administration and durat ion of therapy might be up to 4 weeks if the organism identified as Staphylococcus aureus. If the cu ltures are negative, then again the duration of therapy will be much shorter and it would allow us to resume chemotherapy earlier or sooner and plan replacement of the access in the opposite side sooner as well. I have discussed with patient and the possibility of distant dissemination of the current infection to certain preferred sites including spine, bone and joints, and lungs.
--- NOTE | 2018-05-28 21:15 | PDOC.PN ---
- Subjective Encounter Start Date: 05/28/18 Encounter Start Time: 17:00 Patient seen and examined for mediport infection. s/p Mediport removal. No fever /chills.No new complaints. No overnight events - Objective Resuscitation Status: Resuscitation Status FULL:Full Resuscitation MAR Reviewed: Yes Vital Signs & Weight: Vital Signs (12 hours) Temp Pulse Resp BP Pulse Ox 05/28/18 21:05 98.9 F 79 16 109/64 98 05/28/18 16:00 98.1 F 73 18 163/96 H 96 Weight Weight 141 lb 2 oz I&O: 05/27/18 05/28/18 05/29/18 06:59 06:59 06:59 Intake Total 1970 780 Output Total 250 Balance 1720 780 Result Diagrams: 05/28/18 04:22 05/28/18 04:22 Additional Labs: Microbiology 05/26/18 20:20 Urine clean catch Urine Culture - Final NO GROWTH AT 36 HOURS 05/26/18 18:30 Venous blood - Right Arm Blood Culture - Preliminary NO GROWTH AT 48 HOURS 05/26/18 18:30 Venous blood - Left Hand Blood Culture - Preliminary NO GROWTH AT 48 HOURS Phys Exam - Physical Examination Constitutional: NAD Respiratory: no wheezing, no rhonchi dressing over the surgical site Cardiovascular: RRR, no rub Gastrointestinal: soft, non-tender, positive bowel sounds Musculoskeletal: no edema Dx/Plan (1) Sepsis Code(s): A41.9 - SEPSIS, UNSPECIFIED ORGANISM Status: Acute Comment: due to Mediport infection (2) Port or reservoir infection Code(s): T80.212A - LOCAL INFECTION DUE TO CENTRAL VENOUS CATHETER, INIT ENCNTR Status: Acute Comment: Mediport infection - on Vancomycin and Cefepime - s/ p removal 05/28 (3) Hyperkalemia Code(s): E87.5 - HYPERKALEMIA Status: Acute Comment: prob due to Metabolic acidosis - improved (4) Ovarian cancer Status: Chronic Comment: on Chemo (5) HTN (hypertension) Code(s): I10 - ESSENTIAL (PRIMARY) HYPERTENSION Status: Chronic Comment: on Atenolol - Plan out of bed/ambulate, DVT proph w/SCDs PICC line per Dr Cazares -: Cont Atbx -: Await cultures -: Cont current meds as below Review of Systems - Review of Systems Respiratory: negative: Cough, Dry, Shortness of Breath, Hemoptysis, SOB with Excertion, Pleuritic Pain, Sputum, Wheezing Cardiovascular: negative: chest pain, palpitations, orthopnea, paroxysmal nocturnal dyspnea, edema, light headedness, other - Medications/Allergies Allergies/Adverse Reactions: Allergies Allergy/AdvReac Type Severity Reaction Status Date / Time adhesive Allergy Verified 12/24/17 21:03 diphenhydramine Allergy Hives Verified 12/24/17 21:03 [From Benadryl] erythromycin base Allergy Nausea Verified 12/24/17 21:03 Penicillins Allergy Verified 12/24/17 21:03 Medications: Current Medications Acetaminophen (Tylenol) 650 mg PO Q4H PRN PRN Reason: Headache/Fever or Pain Last Admin: 05/28/18 02:36 Dose: 650 mg Hydrocodone Bitart/Acetaminophen ([place] 10/325) 1 tab PO Q4H PRN PRN Reason: Mild-Moderate Pain (1-5) Last Admin: 05/28/18 17:02 Dose: 1 tab Hydrocodone Bitart/Acetaminophen ([place] 10/325) 2 tab PO Q4H PRN PRN Reason: Moderate to Severe Pain (6-10) Atenolol (Tenormin) 25 mg PO DAILY [facility] Last Admin: 05/28/18 08:43 Dose: 25 mg Furosemide (Lasix) 20 mg PO DAILY PRN PRN Reason: Edema Sodium Chloride (Normal Saline 0.9%) 1,000 mls @ 30 mls/hr IV .Q24H [facility] Last Admin: 05/28/18 09:01 Dose: 1,000 mls Vancomycin HCl 1.25 gm/ Sodium (Chloride) 250 mls @ 166.667 mls/hr IVPB 0300, 1500 [facility] Cefepime HCl 1 gm/Miscellaneous Medication 1 each/ Sodium Chloride 100 mls @ 200 mls/hr IVPB Q12HR [facility] Magnesium Oxide (Magnesium Oxide) 500 mg PO DAILY [facility] Last Admin: 05/28/18 09:04 Dose: Not Given Miscellaneous Medication (Pharmacy To Dose) 0 each IVPB . PRN PRN Reason: PHARMACY TO DOSE VANC Morphine Sulfate (Morphine) 2 mg SLOW IVP Q4H PRN PRN Reason: Mild-Moderate Pain (1-5) Morphine Sulfate (Morphine Sulfate) 4 mg SLOW IVP Q4H PRN PRN Reason: Moderate to Severe Pain (6-10) Multivitamins (Theragran) 1 tab PO DAILY [facility] Last Admin: 05/28/18 09:04 Dose: Not Given Ondansetron HCl (Zofran) 4 mg IVP Q6H PRN PRN Reason: Nausea/Vomiting Pantoprazole Sodium (Protonix) 40 mg PO DAILY [facility] Last Admin: 05/28/18 08:43 Dose: 40 mg
[2018-05-28] MEDS: Cefepime 1 GM, Admixture Fee 1 EACH in Sodium Chloride 0.9% 100 ML IVPB SCH (21:32)
[2018-05-29] MEDS: Vancomycin HCl 1.25 GM in Sodium Chloride 0.9% 250 ML 250 ML IVPB SCH ×2 (03:26→14:46)
[2018-05-29] MEDS: Sodium Chloride 0.9% 1,000 ML IV SCH (06:15)
[2018-05-29] MEDS: Acetaminophen 325 MG TAB PO PRN ×2 (07:56→18:05)
[2018-05-29] MEDS: Atenolol 25 MG TAB PO SCH (08:32)
[2018-05-29] MEDS: Multivit, Therapeutic 1 TAB PO SCH (08:32)
[2018-05-29] MEDS: Magnesium Oxide 250 MG TAB PO SCH (08:45)
[2018-05-29] MEDS: Cefepime 1 GM, Admixture Fee 1 EACH in Sodium Chloride 0.9% 100 ML IVPB SCH ×2 (09:43→21:39)
[2018-05-29] MEDS: HYDROcodone/Acetaminophen 10/325 mg Tablet PO PRN ×2 (11:01→21:38)
--- NOTE | 2018-05-29 14:50 | PDOC.PN ---
- Subjective Encounter Start Date: 05/29/18 Encounter Start Time: 11:00 Patient seen and examined for Mediport infection with possible bacteremia. Some discomfort over the surgical site. No new complaints. No overnight events - Objective Resuscitation Status: Resuscitation Status FULL:Full Resuscitation MAR Reviewed: Yes Vital Signs & Weight: Vital Signs (12 hours) Temp Pulse Resp BP BP Pulse Ox 05/29/18 11:33 98 F 79 16 129/77 95 05/29/18 08:32 82 119/71 05/29/18 08:04 97.7 F 82 14 119/71 93 L 05/29/18 08:00 97.7 F 82 14 93 L 05/29/18 04:30 98 05/29/18 04:28 97.7 F 76 14 115/72 98 Weight Admit Weight 141 lb Weight 141 lb I&O: 05/28/18 05/29/18 05/30/18 06:59 06:59 06:59 Intake Total 1970 1490 540 Output Total 250 Balance 1720 1490 540 Result Diagrams: 05/28/18 04:22 05/28/18 04:22 Additional Labs: Microbiology 05/26/18 20:20 Urine clean catch Urine Culture - Final NO GROWTH AT 36 HOURS 05/28/18 10:42 Catheter Tip Catheter Tip Culture - Preliminary NO GROWTH AT 24 HOURS 05/28/18 10:42 Catheter Site Bacterial Culture - Preliminary 05/26/18 18:30 Venous blood - Right Arm Blood Culture - Preliminary NO GROWTH AT 48 HOURS 05/26/18 18:30 Venous blood - Left Hand Blood Culture - Preliminary NO GROWTH AT 48 HOURS Phys Exam - Physical Examination Constitutional: NAD Respiratory: no wheezing, no rhonchi Cardiovascular: RRR, no rub Gastrointestinal: soft, non-tender, positive bowel sounds Musculoskeletal: no edema Neurological: moves all 4 limbs Dx/Plan (1) Sepsis Code(s): A41.9 - SEPSIS, UNSPECIFIED ORGANISM Status: Acute Comment: due to Mediport infection with suspected bacteremia (2) Port or reservoir infection Code(s): T80.212A - LOCAL INFECTION DUE TO CENTRAL VENOUS CATHETER, INIT ENCNTR Status: Acute Comment: Mediport infection - on Vancomycin and Cefepime - s/ p removal 05/28 (3) Hyperkalemia Code(s): E87.5 - HYPERKALEMIA Status: Acute Comment: prob due to Metabolic acidosis - improved (4) Ovarian cancer Status: Chronic Comment: on Chemo (5) HTN (hypertension) Code(s): I10 - ESSENTIAL (PRIMARY) HYPERTENSION Status: Chronic Comment: on Atenolol - Plan continue antibiotics, out of bed/ambulate, DVT proph w/SCDs Cont Atbx -: Await cultures -: Cont wound care -: AM labs -: Monitor Vancomycin level Review of Systems - Review of Systems Respiratory: negative: Cough, Dry, Shortness of Breath, Hemoptysis, SOB with Excertion, Pleuritic Pain, Sputum, Wheezing Cardiovascular: negative: chest pain, palpitations, orthopnea, paroxysmal nocturnal dyspnea, edema, light headedness, other - Medications/Allergies Allergies/Adverse Reactions: Allergies Allergy/AdvReac Type Severity Reaction Status Date / Time adhesive Allergy Verified 12/24/17 21:03 diphenhydramine Allergy Hives Verified 12/24/17 21:03 [From Benadryl] erythromycin base Allergy Nausea Verified 12/24/17 21:03 Penicillins Allergy Verified 12/24/17 21:03 Medications: Current Medications Acetaminophen (Tylenol) 650 mg PO Q4H PRN PRN Reason: Headache/Fever or Pain Last Admin: 05/29/18 07:56 Dose: 650 mg Hydrocodone Bitart/Acetaminophen ([place] 10/325) 1 tab PO Q4H PRN PRN Reason: Mild-Moderate Pain (1-5) Last Admin: 05/29/18 11:01 Dose: 1 tab Hydrocodone Bitart/Acetaminophen ([place] 10/325) 2 tab PO Q4H PRN PRN Reason: Moderate to Severe Pain (6-10) Last Admin: 05/28/18 21:32 Dose: 2 tab Atenolol (Tenormin) 25 mg PO DAILY [facility] Last Admin: 05/29/18 08:32 Dose: 25 mg Furosemide (Lasix) 20 mg PO DAILY PRN PRN Reason: Edema Sodium Chloride (Normal Saline 0.9%) 1,000 mls @ 30 mls/hr IV .Q24H [facility] Last Admin: 05/29/18 06:15 Dose: 1,000 mls Vancomycin HCl 1.25 gm/ Sodium (Chloride) 250 mls @ 166.667 mls/hr IVPB 0300, 1500 [facility] Last Admin: 05/29/18 14:46 Dose: 250 mls Cefepime HCl 1 gm/Miscellaneous Medication 1 each/ Sodium Chloride 100 mls @ 200 mls/hr IVPB Q12HR [facility] Last Admin: 05/29/18 09:43 Dose: 100 mls Magnesium Oxide (Magnesium Oxide) 500 mg PO DAILY [facility] Last Admin: 05/29/18 08:45 Dose: 500 mg Miscellaneous Medication (Pharmacy To Dose) 0 each IVPB . PRN PRN Reason: PHARMACY TO DOSE VANC Morphine Sulfate (Morphine) 2 mg SLOW IVP Q4H PRN PRN Reason: Mild-Moderate Pain (1-5) Morphine Sulfate (Morphine Sulfate) 4 mg SLOW IVP Q4H PRN PRN Reason: Moderate to Severe Pain (6-10) Multivitamins (Theragran) 1 tab PO DAILY [facility] Last Admin: 05/29/18 08:32 Dose: 1 tab Ondansetron HCl (Zofran) 4 mg IVP Q6H PRN PRN Reason: Nausea/Vomiting Pantoprazole Sodium (Protonix) 40 mg PO DAILY [facility] Last Admin: 05/29/18 07:37 Dose: 40 mg
[2018-05-30] MEDS: Vancomycin HCl 1.25 GM in Sodium Chloride 0.9% 250 ML 250 ML IVPB SCH ×2 (02:24→15:18)
[2018-05-30 02:42] LABS: Vancomycin, Trough 18.7 ug/mL
[2018-05-30 02:44] LABS: Anion Gap 11 mmol/L (10-20); BUN (Urea Nitrogen) 5 mg/dL (9.8-20.1); Calc. Creatinine Clearance 91 mL/min (70-130); Calcium 8.8 mg/dL (7.8-10.44); Carbon Dioxide 27 mmol/L (23-31); Chloride 107 mmol/L (98-107); Estimated GFR-MDRD Greater than 90; Glucose 92 mg/dL (83-110); Potassium 3.6 mmol/L (3.5-5.1); Sodium 141 mmol/L (136-145)
[2018-05-30 02:51] LABS: #Eosinphils 0.4 thou/uL (0.0-0.7); #Lymphocytes 1.1 thou/uL (1.20-3.40); #Monocytes 0.5 thou/uL (0.11-0.59); #Neutrophils 7.4 thou/uL (1.40-6.50); %Basophils 0.2 % (0.0-1.0); %Eosinophils 4.3 % (0.0-10.0); %Lymphocytes 11.7 % (21.0-51.0); %Monocytes 5.1 % (0.0-10.0); %Neutrophils 78.6 % (42.0-75.0); Anisocytosis SLIGHT = 6-15 cells (100X) (0-5/hpf); Elliptocytes SLIGHT = 2-5 cells (100X) (0-1/hpf); Hemoglobin 9.1 g/dL (12.0-16.0); MDiff Complete? YES; Mean Corpuscular HGB CONC 32.2 g/dL (32.0-36.0); Mean Corpuscular Hemoglobin 30.6 pg (27.0-31.0); Mean Corpuscular Volume 94.9 fL (78.0-98.0); Mean Platelet Volume 6.1 fL (7.4-10.4); Platelet Count 458 thou/uL (130-400); RBC Distribution Width 20.8 % (11.5-14.5); Red Blood Cell (RBC) Count 2.98 mill/uL (4.20-5.40); White Blood Cell (WBC) Count 9.5 thou/uL (4.8-10.8)
[2018-05-30] MEDS: Magnesium Oxide 250 MG TAB PO SCH (09:12)
[2018-05-30] MEDS: Atenolol 25 MG TAB PO SCH (09:12)
[2018-05-30] MEDS: Cefepime 1 GM, Admixture Fee 1 EACH in Sodium Chloride 0.9% 100 ML IVPB SCH (09:12)
[2018-05-30] MEDS: Multivit, Therapeutic 1 TAB PO SCH (09:12)
[2018-05-30] MEDS: Sodium Chloride 0.9% 1,000 ML IV SCH ×2 (09:13→17:47)
[2018-05-30] MEDS ORDERED: Meropenem 2 GM in Admixture Fee 1 EACH IVPB SCH (14:00)
[2018-05-30] MEDS: Acetaminophen 325 MG TAB PO PRN (14:52)
[2018-05-30] MEDS: Meropenem 2 GM in Sodium Chloride 0.9% 100 ML IVPB SCH ×4 (15:28→23:48)
[2018-05-30] MEDS: Micafungin 100 MG in Sodium Chloride 0.9% 100 ML IVPB SCH ×3 (15:28→17:42)
[2018-05-30] MEDS: Furosemide 20 MG TAB PO PRN (19:00)
[2018-05-30] MEDS: HYDROcodone/Acetaminophen 10/325 mg Tablet PO PRN (21:42)
--- NOTE | 2018-05-30 22:20 | PDOC.PN ---
- Subjective Encounter Start Date: 05/30/18 Encounter Start Time: 11:30 Patient seen and examined for mediport infection with suspected bacteremia. Worsening erythema over the port site. No new complaints. No overnight events - Objective Resuscitation Status: Resuscitation Status FULL:Full Resuscitation MAR Reviewed: Yes Vital Signs & Weight: Vital Signs (12 hours) Temp Pulse Resp BP Pulse Ox 05/30/18 20:14 98.9 F 86 18 133/78 94 L 05/30/18 16:17 98.5 F 89 18 152/77 H 95 05/30/18 12:59 98.5 F 86 16 138/67 95 Weight Admit Weight 141 lb Weight 141 lb I&O: 05/29/18 05/30/18 05/31/18 06:59 06:59 06:59 Intake Total 1490 1848 3040 Balance 1490 1848 3040 Result Diagrams: 05/30/18 02:13 05/30/18 02:13 Phys Exam - Physical Examination Constitutional: NAD Respiratory: no wheezing, no rhonchi Cardiovascular: RRR, no rub Gastrointestinal: soft, non-tender, positive bowel sounds Musculoskeletal: no edema Neurological: moves all 4 limbs Dx/Plan (1) Sepsis Code(s): A41.9 - SEPSIS, UNSPECIFIED ORGANISM Status: Acute Comment: due to Mediport infection with suspected bacteremia (2) Port or reservoir infection Code(s): T80.212A - LOCAL INFECTION DUE TO CENTRAL VENOUS CATHETER, INIT ENCNTR Status: Acute Comment: Mediport infection - on Atbx - s/p removal 05/28 (3) Hyperkalemia Code(s): E87.5 - HYPERKALEMIA Status: Acute Comment: prob due to Metabolic acidosis - improved (4) Ovarian cancer Status: Chronic Comment: on Chemo (5) HTN (hypertension) Code(s): I10 - ESSENTIAL (PRIMARY) HYPERTENSION Status: Chronic Comment: on Atenolol - Plan continue antibiotics, out of bed/ambulate, DVT proph w/SCDs * Atbx changed to Vancomycin and Meropenem * Micafungin started * Await culture * Cont to monitor * AM labs Microbiology 05/26/18 20:20 Urine clean catch Urine Culture - Final NO GROWTH AT 36 HOURS 05/28/18 10:42 Catheter Tip Catheter Tip Culture - Preliminary NO GROWTH IN 3 DAYS 05/28/18 10:42 Catheter Site Bacterial Culture - Preliminary 05/28/18 10:42 Catheter Site Anaerobic Culture - Preliminary NO ANAEROBES ISOLATED IN 3 DAYS 05/26/18 18:30 Venous blood - Right Arm Blood Culture - Preliminary NO GROWTH AT 48 HOURS 05/26/18 18:30 Venous blood - Left Hand Blood Culture - Preliminary NO GROWTH AT 48 HOURS Review of Systems - Review of Systems Respiratory: negative: Cough, Dry, Shortness of Breath, Hemoptysis, SOB with Excertion, Pleuritic Pain, Sputum, Wheezing Cardiovascular: negative: chest pain, palpitations, orthopnea, paroxysmal nocturnal dyspnea, edema, light headedness, other - Medications/Allergies Allergies/Adverse Reactions: Allergies Allergy/AdvReac Type Severity Reaction Status Date / Time adhesive Allergy Verified 12/24/17 21:03 diphenhydramine Allergy Hives Verified 12/24/17 21:03 [From Benadryl] erythromycin base Allergy Nausea Verified 12/24/17 21:03 Penicillins Allergy Verified 12/24/17 21:03 Medications: Current Medications Acetaminophen (Tylenol) 650 mg PO Q4H PRN PRN Reason: Headache/Fever or Pain Last Admin: 05/30/18 14:52 Dose: 650 mg Hydrocodone Bitart/Acetaminophen ([place] 10/325) 1 tab PO Q4H PRN PRN Reason: Mild-Moderate Pain (1-5) Last Admin: 05/29/18 11:01 Dose: 1 tab Hydrocodone Bitart/Acetaminophen ([place] 10/325) 2 tab PO Q4H PRN PRN Reason: Moderate to Severe Pain (6-10) Last Admin: 05/30/18 21:42 Dose: 2 tab Atenolol (Tenormin) 25 mg PO DAILY [facility] Last Admin: 05/30/18 09:12 Dose: 25 mg Furosemide (Lasix) 20 mg PO DAILY PRN PRN Reason: Edema Last Admin: 05/30/18 19:00 Dose: 20 mg Sodium Chloride (Normal Saline 0.9%) 1,000 mls @ 30 mls/hr IV .Q24H [facility] Last Admin: 05/30/18 17:47 Dose: 1,000 mls Vancomycin HCl 1.25 gm/ Sodium (Chloride) 250 mls @ 166.667 mls/hr IVPB 0300, 1500 [facility] Last Admin: 05/30/18 15:18 Dose: 250 mls Meropenem 2 gm/ Sodium (Chloride) 100 mls @ 100 mls/hr IVPB 0800,1600,2359 [facility] Last Admin: 05/30/18 16:28 Dose: Not Given Micafungin Sodium 100 mg/ (Sodium Chloride) 100 mls @ 100 mls/hr IVPB 1700 [facility] Last Admin: 05/30/18 17:42 Dose: Not Given Magnesium Oxide (Magnesium Oxide) 500 mg PO DAILY [facility] Last Admin: 05/30/18 09:12 Dose: 500 mg Miscellaneous Medication (Pharmacy To Dose) 0 each IVPB . PRN PRN Reason: PHARMACY TO DOSE VANC Morphine Sulfate (Morphine) 2 mg SLOW IVP Q4H PRN PRN Reason: Mild-Moderate Pain (1-5) Morphine Sulfate (Morphine Sulfate) 4 mg SLOW IVP Q4H PRN PRN Reason: Moderate to Severe Pain (6-10) Multivitamins (Theragran) 1 tab PO DAILY [facility] Last Admin: 05/30/18 09:12 Dose: 1 tab Ondansetron HCl (Zofran) 4 mg IVP Q6H PRN PRN Reason: Nausea/Vomiting Pantoprazole Sodium (Protonix) 40 mg PO DAILY [facility] Last Admin: 05/30/18 07:46 Dose: 40 mg
[2018-05-31] MEDS: Vancomycin HCl 1.25 GM in Sodium Chloride 0.9% 250 ML 250 ML IVPB SCH ×2 (02:48→14:41)
[2018-05-31] MEDS: Sodium Chloride 0.9% 1,000 ML IV SCH (06:36)
[2018-05-31] MEDS: Meropenem 2 GM in Sodium Chloride 0.9% 100 ML IVPB SCH (08:56)
[2018-05-31] MEDS: Atenolol 25 MG TAB PO SCH (08:59)
[2018-05-31] MEDS: Multivit, Therapeutic 1 TAB PO SCH (08:59)
[2018-05-31] MEDS: Magnesium Oxide 250 MG TAB PO SCH (09:00)
[2018-05-31] MEDS: Acetaminophen 325 MG TAB PO PRN (09:44)
[2018-05-31] MEDS: Meropenem 2 GM, Admixture Fee 1 EACH in Sodium Chloride 0.9% 100 ML IVPB SCH (16:48)
[2018-05-31] MEDS: Micafungin 100 MG in Sodium Chloride 0.9% 100 ML IVPB SCH (16:49)
[2018-05-31] MEDS: HYDROcodone/Acetaminophen 10/325 mg Tablet PO PRN (21:31)
--- NOTE | 2018-05-31 22:24 | PRG ---
DATE OF SERVICE: 05/31/2018 SUBJECTIVE: Feeling better today, less pain in the site. She believes that even before the new anti microbials were administered that she had already felt some improvement. OBJECTIVE: VITAL SIGNS: Normal. There is less erythema at the tunnel today in the right subclavian location. LUNGS: Clear. HEART: S1, S2, regular rate. ABDOMEN: Soft, not distended or tender. No ascites. No bladder distention. LABORATORY DATA: White cell count 9.5, hemoglobin 9.1, platelets 458. Sodium 141, creatinine 0.57. Cultures are negative thus far. ASSESSMENT AND DISCUSSION: Ovarian cancer stage 3, on chemo, port infection, pleural effusion. Thus far, the cultures are negative. Because of concerns with persistence of inflammatory process, we wi ll transition her to vancomycin and meropenem and micafungin. Possibility of fungal infection includ ing a filamentous fungus is still within the realm of possibilities and we will continue the current regimen. If she improves, then probably we will discharge her on the combination of cefepime, vancom ycin, and micafungin.
--- NOTE | 2018-05-31 22:41 | PDOC.PN ---
- Subjective Encounter Start Date: 05/31/18 Encounter Start Time: 13:30 Patient seen and examined for Sepsis/Mediport infection. Erythema over the surgical site improving. No new complaints. No overnight events - Objective Resuscitation Status: Resuscitation Status FULL:Full Resuscitation MAR Reviewed: Yes Vital Signs & Weight: Vital Signs (12 hours) Temp Pulse Resp BP Pulse Ox 05/31/18 20:00 98.2 F 77 16 121/78 93 L 05/31/18 15:38 98.5 F 74 16 126/83 94 L 05/31/18 12:04 98.6 F 68 20 126/73 94 L Weight Admit Weight 141 lb Weight 141 lb I&O: 05/30/18 05/31/18 06/01/18 06:59 06:59 06:59 Intake Total 1848 3040 2790 Balance 1848 3040 2790 Result Diagrams: 05/30/18 02:13 05/30/18 02:13 Additional Labs: Microbiology 05/26/18 20:20 Urine clean catch Urine Culture - Final NO GROWTH AT 36 HOURS 05/26/18 18:30 Venous blood - Right Arm Blood Culture - Final NO GROWTH IN 5 DAYS 05/26/18 18:30 Venous blood - Left Hand Blood Culture - Final NO GROWTH IN 5 DAYS 05/28/18 10:42 Catheter Tip Catheter Tip Culture - Preliminary NO GROWTH IN 3 DAYS 05/28/18 10:42 Catheter Site Bacterial Culture - Preliminary 05/28/18 10:42 Catheter Site Anaerobic Culture - Preliminary NO ANAEROBES ISOLATED IN 3 DAYS Phys Exam - Physical Examination Constitutional: NAD Respiratory: no wheezing, no rhonchi Cardiovascular: RRR, no rub Gastrointestinal: soft, positive bowel sounds Musculoskeletal: no edema Neurological: moves all 4 limbs Skin: no rash Deviation from normal: improving erythema over the mediport site Dx/Plan (1) Sepsis Code(s): A41.9 - SEPSIS, UNSPECIFIED ORGANISM Status: Acute Comment: due to Mediport infection/cellulitis with suspected bacteremia (2) Port or reservoir infection Code(s): T80.212A - LOCAL INFECTION DUE TO CENTRAL VENOUS CATHETER, INIT ENCNTR Status: Acute Comment: Mediport infection - on Atbx - s/p removal 05/28 (3) Ovarian cancer Status: Chronic Comment: on Chemo (4) HTN (hypertension) Code(s): I10 - ESSENTIAL (PRIMARY) HYPERTENSION Status: Chronic Comment: on Atenolol (5) Hyperkalemia Code(s): E87.5 - HYPERKALEMIA Status: Resolved Comment: prob due to Metabolic acidosis - improved (6) GERD (gastroesophageal reflux disease) Code(s): K21.9 - GASTRO-ESOPHAGEAL REFLUX DISEASE WITHOUT ESOPHAGITIS Status: Chronic Comment: on PPI - Plan continue antibiotics, out of bed/ambulate, DVT proph w/SCDs * Cont Meropenem/Micafungin/Vancomycin * AM labs * Cont current meds including Atenolol/Protonix Review of Systems - Review of Systems Respiratory: negative: Cough, Dry, Shortness of Breath, Hemoptysis, SOB with Excertion, Pleuritic Pain, Sputum, Wheezing Cardiovascular: negative: chest pain, palpitations, orthopnea, paroxysmal nocturnal dyspnea, edema, light headedness, other - Medications/Allergies Allergies/Adverse Reactions: Allergies Allergy/AdvReac Type Severity Reaction Status Date / Time adhesive Allergy Verified 12/24/17 21:03 diphenhydramine Allergy Hives Verified 12/24/17 21:03 [From Benadryl] erythromycin base Allergy Nausea Verified 12/24/17 21:03 Penicillins Allergy Verified 12/24/17 21:03 Medications: Current Medications Acetaminophen (Tylenol) 650 mg PO Q4H PRN PRN Reason: Headache/Fever or Pain Last Admin: 05/31/18 09:44 Dose: 650 mg Hydrocodone Bitart/Acetaminophen ([place] 10/325) 1 tab PO Q4H PRN PRN Reason: Mild-Moderate Pain (1-5) Last Admin: 05/29/18 11:01 Dose: 1 tab Hydrocodone Bitart/Acetaminophen ([place] 10/325) 2 tab PO Q4H PRN PRN Reason: Moderate to Severe Pain (6-10) Last Admin: 05/31/18 21:31 Dose: 2 tab Atenolol (Tenormin) 25 mg PO DAILY [facility] Last Admin: 05/31/18 08:59 Dose: 25 mg Furosemide (Lasix) 20 mg PO DAILY PRN PRN Reason: Edema Last Admin: 05/30/18 19:00 Dose: 20 mg Sodium Chloride (Normal Saline 0.9%) 1,000 mls @ 30 mls/hr IV .Q24H [facility] Last Admin: 05/31/18 06:36 Dose: Not Given Vancomycin HCl 1.25 gm/ Sodium (Chloride) 250 mls @ 166.667 mls/hr IVPB 0300, 1500 [facility] Last Admin: 05/31/18 14:41 Dose: 250 mls Micafungin Sodium 100 mg/ (Sodium Chloride) 100 mls @ 100 mls/hr IVPB 1700 [facility] Last Admin: 05/31/18 16:49 Dose: 100 mls Meropenem 2 gm/ Miscellaneous Medication 1 each/ Sodium Chloride 100 mls @ 100 mls/hr IVPB 0800,1600,2359 [facility] Last Admin: 05/31/18 16:48 Dose: 100 mls Magnesium Oxide (Magnesium Oxide) 500 mg PO DAILY [facility] Last Admin: 05/31/18 09:00 Dose: 500 mg Miscellaneous Medication (Pharmacy To Dose) 0 each IVPB . PRN PRN Reason: PHARMACY TO DOSE VANC Morphine Sulfate (Morphine) 2 mg SLOW IVP Q4H PRN PRN Reason: Mild-Moderate Pain (1-5) Morphine Sulfate (Morphine Sulfate) 4 mg SLOW IVP Q4H PRN PRN Reason: Moderate to Severe Pain (6-10) Multivitamins (Theragran) 1 tab PO DAILY [facility] Last Admin: 05/31/18 08:59 Dose: 1 tab Ondansetron HCl (Zofran) 4 mg IVP Q6H PRN PRN Reason: Nausea/Vomiting Pantoprazole Sodium (Protonix) 40 mg PO DAILY [facility] Last Admin: 05/31/18 07:34 Dose: 40 mg
[2018-06-01] MEDS: Meropenem 2 GM, Admixture Fee 1 EACH in Sodium Chloride 0.9% 100 ML IVPB SCH ×3 (00:06→16:00)
[2018-06-01 02:49] LABS: Vancomycin, Trough 20.4 ug/mL
[2018-06-01] MEDS: Vancomycin HCl 1 GM in Premix Bag 1 BAG IVPB SCH ×2 (03:27→15:10)
[2018-06-01 08:13] LABS: #Basophils 0.1 thou/uL (0.0-0.2); #Eosinphils 0.3 thou/uL (0.0-0.7); #Lymphocytes 1.1 thou/uL (1.20-3.40); #Monocytes 0.5 thou/uL (0.11-0.59); #Neutrophils 6.2 thou/uL (1.40-6.50); %Basophils 0.6 % (0.0-1.0); %Eosinophils 4.1 % (0.0-10.0); %Lymphocytes 13.3 % (21.0-51.0); %Monocytes 5.8 % (0.0-10.0); %Neutrophils 76.2 % (42.0-75.0); Hemoglobin 10.7 g/dL (12.0-16.0); Mean Corpuscular HGB CONC 31.7 g/dL (32.0-36.0); Mean Corpuscular Hemoglobin 30.2 pg (27.0-31.0); Mean Corpuscular Volume 95.3 fL (78.0-98.0); Platelet Count 556 thou/uL (130-400); RBC Distribution Width 20.5 % (11.5-14.5); Red Blood Cell (RBC) Count 3.53 mill/uL (4.20-5.40); White Blood Cell (WBC) Count 8.1 thou/uL (4.8-10.8)
[2018-06-01 08:18] LABS: Albumin 3.2 g/dL (3.4-4.8); Anion Gap 11 mmol/L (10-20); BUN (Urea Nitrogen) 5 mg/dL (9.8-20.1); BUN/Creatinine Ratio 8.93; Calc. Creatinine Clearance 93 mL/min (70-130); Calcium 9.2 mg/dL (7.8-10.44); Carbon Dioxide 30 mmol/L (23-31); Chloride 104 mmol/L (98-107); Estimated GFR-MDRD Greater than 90; Glucose 90 mg/dL (83-110); Magnesium 1.7 mg/dL (1.6-2.6); Phosphorus 3.2 mg/dL (2.3-4.7); Potassium 3.8 mmol/L (3.5-5.1); Sodium 141 mmol/L (136-145)
[2018-06-01] MEDS: Atenolol 25 MG TAB PO SCH (08:42)
[2018-06-01] MEDS: Multivit, Therapeutic 1 TAB PO SCH (08:42)
[2018-06-01] MEDS: Magnesium Oxide 250 MG TAB PO SCH (08:42)
[2018-06-01] MEDS: Furosemide 20 MG TAB PO PRN (08:43)
[2018-06-01] MEDS: Sodium Chloride 0.9% 1,000 ML IV SCH (08:48)
[2018-06-01] MEDS: HYDROcodone/Acetaminophen 10/325 mg Tablet PO PRN ×2 (14:11→22:11)
[2018-06-01] MEDS: Micafungin 100 MG in Sodium Chloride 0.9% 100 ML IVPB SCH (17:05)
--- NOTE | 2018-06-01 22:51 | PDOC.PN ---
- Subjective Encounter Start Date: 06/01/18 Encounter Start Time: 10:30 Patient seen and examined for Sepsis. No new complaints. No overnight events - Objective Resuscitation Status: Resuscitation Status FULL:Full Resuscitation MAR Reviewed: Yes Vital Signs & Weight: Vital Signs (12 hours) Temp Pulse Resp BP Pulse Ox 06/01/18 16:15 98.7 F 65 18 124/72 92 L 06/01/18 12:20 98.6 F 74 16 129/77 94 L Weight Admit Weight 141 lb Weight 141 lb I&O: 05/31/18 06/01/18 06/02/18 06:59 06:59 06:59 Intake Total 3040 2790 877 Balance 3040 2790 877 Result Diagrams: 06/01/18 07:52 06/01/18 07:52 Additional Labs: Microbiology 05/28/18 10:42 Catheter Tip Catheter Tip Culture - Final NO GROWTH IN 4 DAYS 05/26/18 20:20 Urine clean catch Urine Culture - Final NO GROWTH AT 36 HOURS 05/26/18 18:30 Venous blood - Right Arm Blood Culture - Final NO GROWTH IN 5 DAYS 05/26/18 18:30 Venous blood - Left Hand Blood Culture - Final NO GROWTH IN 5 DAYS 05/28/18 10:42 Catheter Site Bacterial Culture - Preliminary 05/28/18 10:42 Catheter Site Anaerobic Culture - Preliminary NO ANAEROBES ISOLATED IN 4 DAYS Phys Exam - Physical Examination Constitutional: NAD Respiratory: no wheezing, no rhonchi Cardiovascular: RRR, no rub Gastrointestinal: soft, non-tender, positive bowel sounds Musculoskeletal: no edema Dx/Plan (1) Sepsis Code(s): A41.9 - SEPSIS, UNSPECIFIED ORGANISM Status: Acute Comment: due to Mediport infection/cellulitis with ?bacteremia - Cultures negative (2) Port or reservoir infection Code(s): T80.212A - LOCAL INFECTION DUE TO CENTRAL VENOUS CATHETER, INIT ENCNTR Status: Acute Comment: Mediport infection - on Atbx - s/p removal 05/28 - wound care following (3) Ovarian cancer Status: Chronic Comment: on Chemo (4) HTN (hypertension) Code(s): I10 - ESSENTIAL (PRIMARY) HYPERTENSION Status: Chronic Comment: on Atenolol (5) GERD (gastroesophageal reflux disease) Code(s): K21.9 - GASTRO-ESOPHAGEAL REFLUX DISEASE WITHOUT ESOPHAGITIS Status: Chronic Comment: on PPI (6) Hyperkalemia Code(s): E87.5 - HYPERKALEMIA Status: Resolved Comment: prob due to Metabolic acidosis - improved - Plan * Cont current Atbx per ID * Await outpt Atbx setup * Cont current meds as below * Monitor Vancomycin level * Cont wound care Review of Systems - Review of Systems Respiratory: negative: Cough, Dry, Shortness of Breath, Hemoptysis, SOB with Excertion, Pleuritic Pain, Sputum, Wheezing Cardiovascular: negative: chest pain, palpitations, orthopnea, paroxysmal nocturnal dyspnea, edema, light headedness, other - Medications/Allergies Allergies/Adverse Reactions: Allergies Allergy/AdvReac Type Severity Reaction Status Date / Time adhesive Allergy Verified 12/24/17 21:03 diphenhydramine Allergy Hives Verified 12/24/17 21:03 [From Benadryl] erythromycin base Allergy Nausea Verified 12/24/17 21:03 Penicillins Allergy Verified 12/24/17 21:03 Medications: Current Medications Acetaminophen (Tylenol) 650 mg PO Q4H PRN PRN Reason: Headache/Fever or Pain Last Admin: 05/31/18 09:44 Dose: 650 mg Hydrocodone Bitart/Acetaminophen ([place] 10/325) 1 tab PO Q4H PRN PRN Reason: Mild-Moderate Pain (1-5) Last Admin: 05/29/18 11:01 Dose: 1 tab Hydrocodone Bitart/Acetaminophen ([place] 10/325) 2 tab PO Q4H PRN PRN Reason: Moderate to Severe Pain (6-10) Last Admin: 06/01/18 22:11 Dose: 2 tab Atenolol (Tenormin) 25 mg PO DAILY [facility] Last Admin: 06/01/18 08:42 Dose: 25 mg Furosemide (Lasix) 20 mg PO DAILY PRN PRN Reason: Edema Last Admin: 06/01/18 08:43 Dose: 20 mg Sodium Chloride (Normal Saline 0.9%) 1,000 mls @ 30 mls/hr IV .Q24H [facility] Last Admin: 06/01/18 08:48 Dose: 1,000 mls Micafungin Sodium 100 mg/ (Sodium Chloride) 100 mls @ 100 mls/hr IVPB 1700 [facility] Last Admin: 06/01/18 17:05 Dose: 100 mls Meropenem 2 gm/ Miscellaneous Medication 1 each/ Sodium Chloride 100 mls @ 100 mls/hr IVPB 0800,1600,2359 [facility] Last Admin: 06/01/18 16:00 Dose: 100 mls Vancomycin HCl 1 gm/ Device 200 mls @ 200 mls/hr IVPB 0300,1500 [facility] Last Admin: 06/01/18 15:10 Dose: 200 mls Magnesium Oxide (Magnesium Oxide) 500 mg PO DAILY [facility] Last Admin: 06/01/18 08:42 Dose: 500 mg Miscellaneous Medication (Pharmacy To Dose) 0 each IVPB . PRN PRN Reason: PHARMACY TO DOSE VANC Morphine Sulfate (Morphine) 2 mg SLOW IVP Q4H PRN PRN Reason: Mild-Moderate Pain (1-5) Morphine Sulfate (Morphine Sulfate) 4 mg SLOW IVP Q4H PRN PRN Reason: Moderate to Severe Pain (6-10) Multivitamins (Theragran) 1 tab PO DAILY [facility] Last Admin: 06/01/18 08:42 Dose: 1 tab Ondansetron HCl (Zofran) 4 mg IVP Q6H PRN PRN Reason: Nausea/Vomiting Pantoprazole Sodium (Protonix) 40 mg PO DAILY [facility] Last Admin: 06/01/18 07:38 Dose: 40 mg Sodium Chloride (Flush - Normal Saline) 10 ml IVF PRN PRN PRN Reason: Saline Flush
[2018-06-02] MEDS: Meropenem 2 GM, Admixture Fee 1 EACH in Sodium Chloride 0.9% 100 ML IVPB SCH ×3 (00:51→16:55)
[2018-06-02 04:48] LABS: Vancomycin, Trough 18.7 ug/mL
[2018-06-02] MEDS: Vancomycin HCl 1 GM in Premix Bag 1 BAG IVPB SCH ×3 (05:22→17:06)
[2018-06-02] MEDS: Atenolol 25 MG TAB PO SCH (07:34)
[2018-06-02] MEDS: Magnesium Oxide 250 MG TAB PO SCH (07:35)
[2018-06-02] MEDS: Multivit, Therapeutic 1 TAB PO SCH (07:35)
[2018-06-02] MEDS: Sodium Chloride 0.9% 1,000 ML IV SCH (07:35)
[2018-06-02] MEDS: HYDROcodone/Acetaminophen 10/325 mg Tablet PO PRN ×3 (08:35→22:26)
[2018-06-02] MEDS: Micafungin 100 MG in Sodium Chloride 0.9% 100 ML IVPB SCH (17:06)
--- NOTE | 2018-06-02 18:56 | PDOC.PN ---
- Subjective Encounter Start Date: 06/02/18 Encounter Start Time: 17:30 Patient seen and examined for Sepsis. No new complaints. No overnight events - Objective Resuscitation Status: Resuscitation Status FULL:Full Resuscitation MAR Reviewed: Yes Vital Signs & Weight: Vital Signs (12 hours) Temp Pulse Resp BP BP BP Pulse Ox 06/02/18 15:40 98.7 F 71 16 127/77 92 L 06/02/18 11:15 97.8 F 62 18 104/55 L 91 L 06/02/18 08:01 97.9 F 82 16 94 L 06/02/18 07:37 97.9 F 82 16 136/56 L 96 06/02/18 07:34 79 136/56 L Weight Admit Weight 141 lb Weight 141 lb I&O: 06/01/18 06/02/18 06/03/18 06:59 06:59 06:59 Intake Total 2790 877 Balance 2790 877 Result Diagrams: 06/01/18 07:52 06/01/18 07:52 Phys Exam - Physical Examination Constitutional: NAD HEENT: moist MMs, sclera anicteric Neurological: moves all 4 limbs Dx/Plan (1) Sepsis Code(s): A41.9 - SEPSIS, UNSPECIFIED ORGANISM Status: Acute Comment: due to Mediport infection/cellulitis with ?bacteremia - Cultures negative (2) Port or reservoir infection Code(s): T80.212A - LOCAL INFECTION DUE TO CENTRAL VENOUS CATHETER, INIT ENCNTR Status: Acute Comment: Mediport infection - on Atbx - s/p removal 05/28 - wound care following (3) Ovarian cancer Status: Chronic Comment: on Chemo (4) HTN (hypertension) Code(s): I10 - ESSENTIAL (PRIMARY) HYPERTENSION Status: Chronic Comment: on Atenolol (5) GERD (gastroesophageal reflux disease) Code(s): K21.9 - GASTRO-ESOPHAGEAL REFLUX DISEASE WITHOUT ESOPHAGITIS Status: Chronic Comment: on PPI (6) Hyperkalemia Code(s): E87.5 - HYPERKALEMIA Status: Resolved Comment: prob due to Metabolic acidosis - improved - Plan continue antibiotics, out of bed/ambulate, DVT proph w/SCDs * Cont wound care * Cont Vancomycin/Meropenem/Micafungin * Await outpatient Atbx setup * Cont current meds as below * Monitor Vancomycin level * Review of Systems - Review of Systems Respiratory: negative: Cough, Dry, Shortness of Breath, Hemoptysis, SOB with Excertion, Pleuritic Pain, Sputum, Wheezing Cardiovascular: negative: chest pain, palpitations, orthopnea, paroxysmal nocturnal dyspnea, edema, light headedness, other - Medications/Allergies Allergies/Adverse Reactions: Allergies Allergy/AdvReac Type Severity Reaction Status Date / Time adhesive Allergy Verified 12/24/17 21:03 diphenhydramine Allergy Hives Verified 12/24/17 21:03 [From Benadryl] erythromycin base Allergy Nausea Verified 12/24/17 21:03 Penicillins Allergy Verified 12/24/17 21:03 Medications: Current Medications Acetaminophen (Tylenol) 650 mg PO Q4H PRN PRN Reason: Headache/Fever or Pain Last Admin: 05/31/18 09:44 Dose: 650 mg Hydrocodone Bitart/Acetaminophen ([place] 10/325) 1 tab PO Q4H PRN PRN Reason: Mild-Moderate Pain (1-5) Last Admin: 06/02/18 08:35 Dose: 1 tab Hydrocodone Bitart/Acetaminophen ([place] 10/325) 2 tab PO Q4H PRN PRN Reason: Moderate to Severe Pain (6-10) Last Admin: 06/02/18 14:51 Dose: 2 tab Atenolol (Tenormin) 25 mg PO DAILY [facility] Last Admin: 06/02/18 07:34 Dose: 25 mg Furosemide (Lasix) 20 mg PO DAILY PRN PRN Reason: Edema Last Admin: 06/01/18 08:43 Dose: 20 mg Sodium Chloride (Normal Saline 0.9%) 1,000 mls @ 30 mls/hr IV .Q24H [facility] Last Admin: 06/02/18 07:35 Dose: Not Given Micafungin Sodium 100 mg/ (Sodium Chloride) 100 mls @ 100 mls/hr IVPB 1700 [facility] Last Admin: 06/02/18 17:06 Dose: 100 mls Meropenem 2 gm/ Miscellaneous Medication 1 each/ Sodium Chloride 100 mls @ 100 mls/hr IVPB 0800,1600,2359 [facility] Last Admin: 06/02/18 16:55 Dose: 100 mls Vancomycin HCl 1 gm/ Device 200 mls @ 200 mls/hr IVPB 0500,1700 [facility] Last Admin: 06/02/18 17:06 Dose: 200 mls Magnesium Oxide (Magnesium Oxide) 500 mg PO DAILY [facility] Last Admin: 06/02/18 07:35 Dose: 500 mg Miscellaneous Medication (Pharmacy To Dose) 0 each IVPB . PRN PRN Reason: PHARMACY TO DOSE VANC Morphine Sulfate (Morphine) 2 mg SLOW IVP Q4H PRN PRN Reason: Mild-Moderate Pain (1-5) Last Admin: 06/02/18 10:27 Dose: 2 mg Morphine Sulfate (Morphine Sulfate) 4 mg SLOW IVP Q4H PRN PRN Reason: Moderate to Severe Pain (6-10) Multivitamins (Theragran) 1 tab PO DAILY [facility] Last Admin: 06/02/18 07:35 Dose: 1 tab Ondansetron HCl (Zofran) 4 mg IVP Q6H PRN PRN Reason: Nausea/Vomiting Pantoprazole Sodium (Protonix) 40 mg PO DAILY [facility] Last Admin: 06/02/18 07:34 Dose: 40 mg Sodium Chloride (Flush - Normal Saline) 10 ml IVF PRN PRN PRN Reason: Saline Flush
[2018-06-03] MEDS: Meropenem 2 GM, Admixture Fee 1 EACH in Sodium Chloride 0.9% 100 ML IVPB SCH ×4 (00:46→23:06)
[2018-06-03] MEDS: Vancomycin HCl 1 GM in Premix Bag 1 BAG IVPB SCH ×2 (05:59→18:09)
[2018-06-03 06:27] LABS: #Basophils 0.1 thou/uL (0.0-0.2); #Eosinphils 0.5 thou/uL (0.0-0.7); #Lymphocytes 1.3 thou/uL (1.20-3.40); #Monocytes 0.7 thou/uL (0.11-0.59); #Neutrophils 5.9 thou/uL (1.40-6.50); %Basophils 0.8 % (0.0-1.0); %Eosinophils 5.7 % (0.0-10.0); %Lymphocytes 15.4 % (21.0-51.0); %Monocytes 8.1 % (0.0-10.0); %Neutrophils 70.1 % (42.0-75.0); Hemoglobin 9.9 g/dL (12.0-16.0); Mean Corpuscular Hemoglobin 29.9 pg (27.0-31.0); Mean Corpuscular Volume 96.4 fL (78.0-98.0); Mean Platelet Volume 6.1 fL (7.4-10.4); Platelet Count 471 thou/uL (130-400); RBC Distribution Width 20.7 % (11.5-14.5); White Blood Cell (WBC) Count 8.4 thou/uL (4.8-10.8)
[2018-06-03 06:31] LABS: Anion Gap 9 mmol/L (10-20); BUN (Urea Nitrogen) 6 mg/dL (9.8-20.1); Calc. Creatinine Clearance 96 mL/min (70-130); Carbon Dioxide 32 mmol/L (23-31); Chloride 101 mmol/L (98-107); Estimated GFR-MDRD Greater than 90; Glucose 86 mg/dL (83-110); Magnesium 1.7 mg/dL (1.6-2.6); Potassium 4.1 mmol/L (3.5-5.1); Sodium 138 mmol/L (136-145)
[2018-06-03] MEDS: Atenolol 25 MG TAB PO SCH (08:34)
[2018-06-03] MEDS: Multivit, Therapeutic 1 TAB PO SCH (08:37)
[2018-06-03] MEDS: Magnesium Oxide 250 MG TAB PO SCH (08:37)
[2018-06-03] MEDS: Sodium Chloride 0.9% 1,000 ML IV SCH (09:40)
[2018-06-03] MEDS: HYDROcodone/Acetaminophen 10/325 mg Tablet PO PRN ×3 (10:09→21:36)
--- NOTE | 2018-06-03 12:57 | PDOC.PN ---
- Subjective Encounter Start Date: 06/03/18 Encounter Start Time: 12:00 Patient seen and examined for Sepsis. No new complaints. No overnight events - Objective Resuscitation Status: Resuscitation Status FULL:Full Resuscitation MAR Reviewed: Yes Vital Signs & Weight: Vital Signs (12 hours) Temp Pulse Resp BP BP BP Pulse Ox 06/03/18 11:58 97.6 F 66 16 116/75 92 L 06/03/18 08:34 77 141/89 H 06/03/18 07:20 97.9 F 77 16 149/81 H 98 06/03/18 04:00 97.5 F L 70 16 120/70 98 Weight Admit Weight 141 lb Weight 141 lb I&O: 06/02/18 06/03/18 06/04/18 06:59 06:59 06:59 Intake Total 877 1330 Balance 877 1330 Result Diagrams: 06/03/18 06:15 06/03/18 06:15 Phys Exam - Physical Examination Constitutional: NAD Neurological: moves all 4 limbs Psychiatric: A&O x 3 Dx/Plan (1) Sepsis Code(s): A41.9 - SEPSIS, UNSPECIFIED ORGANISM Status: Acute Comment: due to Mediport infection/cellulitis with ?bacteremia - Cultures negative (2) Port or reservoir infection Code(s): T80.212A - LOCAL INFECTION DUE TO CENTRAL VENOUS CATHETER, INIT ENCNTR Status: Acute Comment: Mediport infection - on Atbx - s/p removal 05/28 - wound care following (3) Ovarian cancer Status: Chronic Comment: on Chemo (4) HTN (hypertension) Code(s): I10 - ESSENTIAL (PRIMARY) HYPERTENSION Status: Chronic Comment: on Atenolol (5) GERD (gastroesophageal reflux disease) Code(s): K21.9 - GASTRO-ESOPHAGEAL REFLUX DISEASE WITHOUT ESOPHAGITIS Status: Chronic Comment: on PPI (6) Hyperkalemia Code(s): E87.5 - HYPERKALEMIA Status: Resolved Comment: prob due to Metabolic acidosis - improved - Plan Cont current Antibiotics Await outpt Atbx setup Cont other meds as below Cont wound care Vancomycin level at 1600 today Review of Systems - Review of Systems Respiratory: negative: Cough, Dry, Shortness of Breath, Hemoptysis, SOB with Excertion, Pleuritic Pain, Sputum, Wheezing - Medications/Allergies Allergies/Adverse Reactions: Allergies Allergy/AdvReac Type Severity Reaction Status Date / Time adhesive Allergy Verified 12/24/17 21:03 diphenhydramine Allergy Hives Verified 12/24/17 21:03 [From Benadryl] erythromycin base Allergy Nausea Verified 12/24/17 21:03 Penicillins Allergy Verified 12/24/17 21:03 Medications: Current Medications Acetaminophen (Tylenol) 650 mg PO Q4H PRN PRN Reason: Headache/Fever or Pain Last Admin: 05/31/18 09:44 Dose: 650 mg Hydrocodone Bitart/Acetaminophen ([place] 10/325) 1 tab PO Q4H PRN PRN Reason: Mild-Moderate Pain (1-5) Last Admin: 06/03/18 10:09 Dose: 1 tab Hydrocodone Bitart/Acetaminophen ([place] 10/325) 2 tab PO Q4H PRN PRN Reason: Moderate to Severe Pain (6-10) Last Admin: 06/02/18 22:26 Dose: 2 tab Atenolol (Tenormin) 25 mg PO DAILY [facility] Last Admin: 06/03/18 08:34 Dose: 25 mg Furosemide (Lasix) 20 mg PO DAILY PRN PRN Reason: Edema Last Admin: 06/01/18 08:43 Dose: 20 mg Sodium Chloride (Normal Saline 0.9%) 1,000 mls @ 30 mls/hr IV .Q24H [facility] Last Admin: 06/03/18 09:40 Dose: 1,000 mls Micafungin Sodium 100 mg/ (Sodium Chloride) 100 mls @ 100 mls/hr IVPB 1700 [facility] Last Admin: 06/02/18 17:06 Dose: 100 mls Meropenem 2 gm/ Miscellaneous Medication 1 each/ Sodium Chloride 100 mls @ 100 mls/hr IVPB 0800,1600,2359 [facility] Last Admin: 06/03/18 08:22 Dose: 100 mls Vancomycin HCl 1 gm/ Device 200 mls @ 200 mls/hr IVPB 0500,1700 [facility] Last Admin: 06/03/18 05:59 Dose: 200 mls Magnesium Oxide (Magnesium Oxide) 500 mg PO DAILY [facility] Last Admin: 06/03/18 08:37 Dose: 500 mg Miscellaneous Medication (Pharmacy To Dose) 0 each IVPB . PRN PRN Reason: PHARMACY TO DOSE VANC Morphine Sulfate (Morphine) 2 mg SLOW IVP Q4H PRN PRN Reason: Mild-Moderate Pain (1-5) Last Admin: 06/03/18 09:38 Dose: 2 mg Morphine Sulfate (Morphine Sulfate) 4 mg SLOW IVP Q4H PRN PRN Reason: Moderate to Severe Pain (6-10) Multivitamins (Theragran) 1 tab PO DAILY [facility] Last Admin: 06/03/18 08:37 Dose: 1 tab Ondansetron HCl (Zofran) 4 mg IVP Q6H PRN PRN Reason: Nausea/Vomiting Pantoprazole Sodium (Protonix) 40 mg PO DAILY [facility] Last Admin: 06/03/18 08:21 Dose: 40 mg Sodium Chloride (Flush - Normal Saline) 10 ml IVF PRN PRN PRN Reason: Saline Flush
[2018-06-03 16:52] LABS: Vancomycin, Trough 21.8 ug/mL
[2018-06-03] MEDS: Micafungin 100 MG in Sodium Chloride 0.9% 100 ML IVPB SCH (18:41)
[2018-06-03] MEDS: Vancomycin HCl 750 MG in Sodium Chloride 0.9% 250 ML 250 ML IVPB SCH (19:31)
[2018-06-04] MEDS: Vancomycin HCl 750 MG in Sodium Chloride 0.9% 250 ML 250 ML IVPB SCH ×2 (05:02→17:07)
[2018-06-04] MEDS: Magnesium Oxide 250 MG TAB PO SCH (07:44)
[2018-06-04] MEDS: Meropenem 2 GM, Admixture Fee 1 EACH in Sodium Chloride 0.9% 100 ML IVPB SCH (07:44)
[2018-06-04] MEDS: Atenolol 25 MG TAB PO SCH (07:44)
[2018-06-04] MEDS: Multivit, Therapeutic 1 TAB PO SCH (07:44)
[2018-06-04] MEDS ORDERED: Cefepime 2 GM, Admixture Fee 1 EACH in Sodium Chloride 0.9% 100 ML IVPB SCH (10:00)
[2018-06-04] MEDS: Sodium Chloride 0.9% 1,000 ML IV SCH (10:45)
[2018-06-04] MEDS: Micafungin 100 MG in Sodium Chloride 0.9% 100 ML IVPB SCH (15:54)
[2018-06-04 17:44] VITALS: BP 148/91; TEMP 98
--- NOTE | 2018-06-05 08:35 | DIS ---
DISCHARGE DISPOSITION: Home with home health care. FOLLOWUP: Follow up with primary care physician, Dr. Mis Felix in 1 week. Follow up with Dr. Abraham calabrese in 2-3 weeks. Follow up with Dr. Keenan next week. [facility] has been arranged. Simeon will be managing home infusion. DISCHARGE MEDICATIONS: The patient will be discharged home on vancomycin, cefepime and micafungin. All other home medications were resumed. BRIEF HOSPITAL COURSE: The patient is a 72-year-old female with ovarian cancer, currently on chemoth erapy who presented to the hospital with redness around the MediPort area. Please refer to the histo ry and physical dated 05/26/2018 for further details. The patient was admitted to the hospital with a diagnosis of sepsis secondary to MediPort infection. The MediPort has been removed. A PICC line was placed on the same day. On the next day after MediP ort removal there was worsening redness for which micafungin was added to vancomycin and cefepime. C efepime was also changed to meropenem per Infectious Disease. The patient stays longer than diana rutledge due to home antibiotics set up. She has been cleared by consultants for discharge. FINAL DIAGNOSES: 1. Sepsis secondary to MediPort infection. 2. Ovarian cancer, on chemotherapy. 3. Hypertension. 4. Gastroesophageal reflux disease. 5. Hyperkalemia on admission. The patient was advised to reduce the potassium dose. Plan of care was discussed with the patient in detail. She stated understanding.
== END 2018-06-04 18:47 | disposition home health service (06) | DRG 314 ==
LOC: ERS 18:05 → SURG A 20:49
PROVIDERS: ADMIT Hospitalist; ATTEND Hospitalist
PROC: 02HV33Z Insertion of Infusion Device into Superior Vena Cava, Percutaneous Approach (ICD-10-PCS; principal; 2018-05-28)
PROC: 0JPT0WZ Removal of Totally Implantable Vascular Access Device from Trunk Subcutaneous Tissue and Fascia, Open Approach (ICD-10-PCS; 2018-05-28)
DX: T80.211A Bloodstream infection due to central venous catheter, initial encounter (principal); A41.9 Sepsis, unspecified organism; E87.1 Hypo-osmolality and hyponatremia; J91.8 Pleural effusion in other conditions classified elsewhere; C56.9 Malignant neoplasm of unspecified ovary; C78.5 Secondary malignant neoplasm of large intestine and rectum; E87.2 Acidosis; I10 Essential (primary) hypertension; E87.5 Hyperkalemia; K21.9 Gastro-esophageal reflux disease without esophagitis; Z93.3 Colostomy status; Z88.0 Allergy status to penicillin; Z88.8 Allergy status to other drugs, medicaments and biological substances; Z88.1 Allergy status to other antibiotic agents; Z87.891 Personal history of nicotine dependence; Y83.1 Surgical operation with implant of artificial internal device as the cause of abnormal reaction of the patient, or of later complication, without mention of misadventure at the time of the procedure
CPT/HCPCS: 36415; 36569; 71045; 80048; 80053; 80069; 80202; 81003; 83605; 83735; 85025; 87040; 87070; 87071; 87086; 87205; 93005; 96365; 96367; C1751; J0692; J1644; J1650; J2001; J2185; J2248; J2270; J2704; J3010; J3370; J7050

== ENCOUNTER 2018-08-07 14:50 | Outpatient (CLI) | payer MEDICARE, BC ==
[2018-08-07 15:34] LABS: #Basophils 0.1 thou/uL (0.0-0.2); #Lymphocytes 1.4 thou/uL (1.20-3.40); #Monocytes 0.5 thou/uL (0.11-0.59); %Basophils 0.9 % (0.0-1.0); %Eosinophils 0.5 % (0.0-10.0); %Lymphocytes 19.7 % (21.0-51.0); %Monocytes 7.3 % (0.0-10.0); %Neutrophils 71.6 % (42.0-75.0); Hemoglobin 11.2 g/dL (12.0-16.0); Mean Corpuscular HGB CONC 32.4 g/dL (32.0-36.0); Mean Corpuscular Hemoglobin 29.1 pg (27.0-31.0); Mean Corpuscular Volume 89.7 fL (78.0-98.0); Mean Platelet Volume 6.1 fL (7.4-10.4); Platelet Count 474 thou/uL (130-400); RBC Distribution Width 16.3 % (11.5-14.5); Red Blood Cell (RBC) Count 3.85 mill/uL (4.20-5.40)
[2018-08-07 15:51] LABS: ALT (SGPT) 14 U/L (8-55); AST (SGOT) 15 U/L (5-34); Alkaline Phosphatase 79 U/L (40-150); Anion Gap 14 mmol/L (10-20); BUN (Urea Nitrogen) 14 mg/dL (9.8-20.1); Bilirubin, Total 0.2 mg/dL (0.2-1.2); Calc. Creatinine Clearance 0 mL/min (70-130); Calcium 9.4 mg/dL (7.8-10.44); Carbon Dioxide 27 mmol/L (23-31); Chloride 102 mmol/L (98-107); Estimated GFR-MDRD 77; Globulin 3.1 g/dL (2.4-3.5); Glucose 98 mg/dL (83-110); Potassium 4.6 mmol/L (3.5-5.1); Protein, Total 7.1 g/dL (6.0-8.3); Sodium 138 mmol/L (136-145)
--- NOTE | 2018-08-12 16:51 | EKG ---
Test Reason : Blood Pressure : / mmHG Vent. Rate : 074 BPM Atrial Rate : 074 BPM P-R Int : 172 ms QRS Dur : 072 ms QT Int : 370 ms P-R-T Axes : 058 077 045 degrees QTc Int : 410 ms Normal sinus rhythm Low voltage QRS Cannot rule out Anterior infarct , age undetermined Abnormal ECG When compared with ECG of 26-MAY-2018 18:48, No significant change was found Confirmed by MELLISA HARVEY (2) on 08/12/2018 4:50:49 PM Referred By: JESSE Confirmed By:MELLISA HARVEY
== END 2018-08-07 14:51 | disposition home or self-care (01) ==
LOC: LABBT 14:50
PROVIDERS: ATTEND Surgery
DX: Z01.818 Encounter for other preprocedural examination (principal); C56.9 Malignant neoplasm of unspecified ovary
CPT/HCPCS: 80053; 85025; 93005; 93010

== ENCOUNTER → 2018-08-09 | Day surgery (SDC) | payer MEDICARE, BC ==
[2018-08-07 15:24] VITALS: BMI 25.0
[~2018-08-09] MED LIST changes: +Bupivacaine/Epinephrine 0.25% 30 ML VIAL ONE; +Dexamethasone 20 MG/5 ML VIAL ONE; +Fentanyl 100 MCG/2 ML VIAL ONE; +Glycopyrrolate 0.2 MG/ML 5 ML SYRINGE ONE; +HYDROmorphone 2 MG/ML VIAL ONE; -Heparin 1,000 UNITS/ML VIAL ONE; +Levofloxacin 500 mg/D5W 100 ml Premix Bag ONE; +Lidocaine 0.5%/Epinephrine 1:200,000 50 ml Vial ONE; +Lidocaine 1% PF 5 ML VIAL ONE; +Lidocaine 2% PF Inj 2 ML VIAL ONE; +Midazolam HCl 2 mg/2 ml Vial ONE; +Ondansetron HCl/PF 4 MG/2 ML Vial ONE; +PROPOFOL 200 MG/20 ML VIAL ONE; +ePHEDrine/0.9% NaCl/PF SYRINGE 50 mg/10 ml ONE
--- NOTE | 2018-08-09 11:45 | OP ---
DATE OF PROCEDURE: 08/09/2018 PREOPERATIVE DIAGNOSIS: Ovarian cancer. SURGEON: John Paul Keenan M.D. PROCEDURE PERFORMED: MediPort placement. INDICATIONS: A 72-year-old female with metastatic ovarian cancer who has been on chemo. She had a M ediPort on the right that got infected, has now been healed up. They have been using a PICC line. FINDINGS: Good placement in left subclavian by fluoroscopy. A PICC line was removed intact. DESCRIPTION OF PROCEDURE: After informed consent was obtained, the patient was taken to [facility] room, given general mask anesthesia, placed in the supine position. Her chest and neck were preppe d and draped in usual fashion. She was then placed in Trendelenburg position. Local anesthesia infi ltrated with 0.5% Marcaine. An introducer needle was inserted with good backflow of venous blood. J -wire threaded easily. Fluoroscopy was used showed good placement of the wire in the superior vena c [place]. Skin and subcutaneous anesthetized with local anesthesia. A transverse left chest wall incisio n was performed. Subcu divided sharply. A pocket created on the pectoralis fascia. The tunneling d evice was used to connect the two incisions and the catheter brought through the tunnel. The cathete r was attached to the MediPort and the system was flushed with heparinized saline. The MediPort was then secured to the pectoralis fascia with interrupted 2-0 Prolene suture. The catheter was cut to s ize. The peel-away introducer inserted over the wire. The wire was removed. Then the catheter inse rted through the peel-away introducer and then the peel-away introducer was removed. Fluoroscopy aga in used showed good placement in superior vena cava. The subcutaneous reapproximated with interrupte d 3-0 Vicryl. Skin closed with a running subcuticular 4-0 Rapide. System access with Soria needle. Good backflow of venous blood, flushed with heparinized saline. At this point, Dermabond was applie d to the two incisions and the PICC line was removed. The patient was then transferred to the [facility] room in good condition. A chest x-ray obtained.
--- NOTE | 2018-08-09 13:18 | RAD ---
CHEST 1 VIEW: HISTORY: Status post MediPort catheter placement. COMPARISON: 05/26/18. FINDINGS: Portable upright chest demonstrates a left-sided MediPort catheter with the distal tip projecting ove r the expected region of the superior vena cava. Normal cardiac silhouette. There is subtle right p erihilar opacification. Small right-sided effusion. No pneumothorax. IMPRESSION: 1. Left-sided MediPort catheter as above. 2. Subtle right perihilar opacity and small right-sided effusion. 3. No pneumothorax. POS: [facility]
== END ==
LOC: SDC 07:33
PROVIDERS: ATTEND Surgery
PROC: 0JH63WZ Insertion of Totally Implantable Vascular Access Device into Chest Subcutaneous Tissue and Fascia, Percutaneous Approach (ICD-10-PCS; principal; 2018-08-09)
DX: C56.9 Malignant neoplasm of unspecified ovary (principal); C79.9 Secondary malignant neoplasm of unspecified site; I11.0 Hypertensive heart disease with heart failure; I50.32 Chronic diastolic (congestive) heart failure; Z79.899 Other long term (current) drug therapy; Z88.0 Allergy status to penicillin; Z88.8 Allergy status to other drugs, medicaments and biological substances; Z91.048 Other nonmedicinal substance allergy status
CPT/HCPCS: 36561; 71045; C1788; J1170; J1642; J1956; J2001; J2250; J3010

== ENCOUNTER 2018-08-30 12:35 | Outpatient (CLI) | payer MEDICARE, BC ==
--- NOTE | 2018-08-30 14:24 | CT ---
CT ARTERIOGRAM CHST WITH IV CONTRAST AND 3D MIP IMAGING: HISTORY: Chest pain. Dyspnea. COMPARISON: 02/28/2018. FINDINGS: There is good contrast opacification of the pulmonary arteries and thoracic aorta with normal branchi ng of the great vessels. A large amount of right pleural fluid and a moderate amount of left pleural fluid are similar in appearance to the February exam. There is compressive atelectasis of each lung ac cordingly. Within the partially visualized upper abdomen, the heterogeneous vascular lesion at the h ilum of the spleen is partially visualized. No evidence of pneumothorax. IMPRESSION: 1. No CT evidence of pulmonary embolus. 2. Bilateral pleural fluid, right greater than left. This is likely a cause for dyspnea and is kassie lar in appearance to the 02/28/2018 study. Findings were called to Margaret Mazariegos at 1314 hours. CODE CR POS: KETTY
== END 2018-08-30 12:36 | disposition home or self-care (01) ==
LOC: CT 12:35
PROVIDERS: ATTEND Nurse Practitioner Acute Care
DX: R06.02 Shortness of breath (principal); I26.09 Other pulmonary embolism with acute cor pulmonale
CPT/HCPCS: 71275; 87040

== ENCOUNTER 2018-09-27 12:17 | Day surgery (SDC) | payer MEDICARE, BC ==
[2018-09-27] MEDS ORDERED: Acetaminophen 500 MG TAB PO SCH (13:15)
[2018-09-27] MEDS ORDERED: Dexamethasone 4 mg/ml Vial SLOW IVP SCH (13:45)
[2018-09-27 17:14] LABS: Hemoglobin 8.3 g/dL (12.0-16.0)
[2018-09-27] MEDS ORDERED: Sodium Chloride 0.9% 20 ML ONE (20:12)
[2018-09-27 20:52] LABS: Anisocytosis SLIGHT = 6-15 cells (100X) (0-5/hpf); Band 4 % (5-11); Hemoglobin 9.7 g/dL (12.0-16.0); Hypochromia SLIGHT = 6-15 cells (100X) (0-5/hpf); Lymphocytes 1 % (21-51); MDiff Complete? YES; Mean Corpuscular HGB CONC 31.9 g/dL (32.0-36.0); Mean Corpuscular Hemoglobin 29.8 pg (27.0-31.0); Mean Corpuscular Volume 93.4 fL (78.0-98.0); Mean Platelet Volume 5.8 fL (7.4-10.4); Monocytes 1 % (0-10); Neutrophil 94 % (42-75); PLT Morphology Comment Appears Increased; Platelet Count 696 thou/uL (130-400); RBC Distribution Width 19.2 % (11.5-14.5); Red Blood Cell (RBC) Count 3.26 mill/uL (4.20-5.40)
[2018-09-27] MEDS ORDERED: Prevnar 13-Val Conj/PF 0.5 ML SYRINGE IM ONE (21:00)
[2018-09-27 21:10] VITALS: BP 135/63; TEMP 97.9
== END 2018-09-27 20:35 | disposition home or self-care (01) ==
LOC: ONC/OP 12:17 → 3SE 12:22 → ONC/OP 20:35
PROVIDERS: ATTEND Internal Medicine Hematology & Oncology
PROC: 30233N1 Transfusion of Nonautologous Red Blood Cells into Peripheral Vein, Percutaneous Approach (ICD-10-PCS; principal; 2018-09-27)
DX: D64.9 Anemia, unspecified (principal); D69.6 Thrombocytopenia, unspecified; Z79.899 Other long term (current) drug therapy; Z88.0 Allergy status to penicillin; Z88.8 Allergy status to other drugs, medicaments and biological substances; Z91.048 Other nonmedicinal substance allergy status
CPT/HCPCS: 36430; 85014; 85018; 86850; 86900; 86901; 90471; 90662; G0008; J1100; P9016

== ENCOUNTER 2018-10-23 16:14 | Day surgery (SDC) | payer MEDICARE, BC ==
[2018-10-23 16:54] VITALS: BMI 25.4
[2018-10-23] MEDS ORDERED: Loratadine 10 MG TAB PO SCH (17:45)
[2018-10-23] MEDS ORDERED: Acetaminophen 500 MG TAB PO SCH (17:45)
[2018-10-23] MEDS: Sodium Chloride 0.9% 10 ML ONE (20:10)
[2018-10-24] MEDS ORDERED: Sodium Chloride 0.9% 10 ML ONE (01:43)
[2018-10-24] MEDS: Sodium Chloride 0.9% 10 ML ONE (01:46)
[2018-10-24 01:47] VITALS: BP 140/65; TEMP 98.6
[2018-10-24 02:17] LABS: #Eosinphils 0.1 thou/uL (0.0-0.7); #Lymphocytes 1.1 thou/uL (1.20-3.40); #Neutrophils 14.4 thou/uL (1.40-6.50); %Basophils 0.2 % (0.0-1.0); %Eosinophils 0.4 % (0.0-10.0); %Lymphocytes 6.4 % (21.0-51.0); %Monocytes 5.8 % (0.0-10.0); %Neutrophils 87.2 % (42.0-75.0); Hemoglobin 11.3 g/dL (12.0-16.0); Mean Corpuscular HGB CONC 32.3 g/dL (32.0-36.0); Mean Corpuscular Hemoglobin 29.5 pg (27.0-31.0); Mean Corpuscular Volume 91.3 fL (78.0-98.0); Platelet Count 635 thou/uL (130-400); RBC Distribution Width 18.5 % (11.5-14.5); Red Blood Cell (RBC) Count 3.83 mill/uL (4.20-5.40); White Blood Cell (WBC) Count 16.5 thou/uL (4.8-10.8)
== END 2018-10-24 01:58 | disposition home or self-care (01) ==
LOC: SDC/OP 16:14 → 3SE 16:17 → SDC/OP 10-24 01:58
PROVIDERS: ATTEND Internal Medicine Hematology & Oncology
DX: D64.9 Anemia, unspecified (principal); D69.6 Thrombocytopenia, unspecified
CPT/HCPCS: 36430; 85025; 86850; 86900; 86901; P9016

== ENCOUNTER → 2019-01-14 | Day surgery (SDC) | payer MEDICARE, BC ==
[~2019-01-14] MED LIST changes: -Bupivacaine/Epinephrine 0.25% 30 ML VIAL ONE; -Dexamethasone 20 MG/5 ML VIAL ONE; -Fentanyl 100 MCG/2 ML VIAL ONE; -Glycopyrrolate 0.2 MG/ML 5 ML SYRINGE ONE; -HYDROmorphone 2 MG/ML VIAL ONE; -Levofloxacin 500 mg/D5W 100 ml Premix Bag ONE; -Lidocaine 0.5%/Epinephrine 1:200,000 50 ml Vial ONE; +Lidocaine 1% (PF) 30 ML VIAL ONE; -Lidocaine 2% PF Inj 2 ML VIAL ONE; -Midazolam HCl 2 mg/2 ml Vial ONE; +Morphine 2 MG/ML SYRINGE ONE; +Morphine 4 MG/ML VIAL ONE; -Ondansetron HCl/PF 4 MG/2 ML Vial ONE; -PROPOFOL 200 MG/20 ML VIAL ONE; -ePHEDrine/0.9% NaCl/PF SYRINGE 50 mg/10 ml ONE
--- NOTE | 2019-01-14 15:36 | OP ---
DATE OF PROCEDURE: 01/14/2019 PROCEDURE PERFORMED: Thoracentesis. INDICATION: Malignant pleural effusions, possibly the patient's right posterior hemithorax was prepped with chlorhexidine. After risks were explained, these include bleeding, infection, least likely lung collapse. DESCRIPTION OF PROCEDURE: Skin was anesthetized with 10 mL 1% lidocaine. The pleura was anesthetized with 5 mL 1% lidocaine. An 8-Faroese pleural catheter was inserted in the pleural space without difficulty. There was a little resistance detected in the chest wall penetrating the pleura. 600 mL of clear yellow pleural fluid was evacuated without difficulty, although she developed significant pleuritic chest discomfort when we got about 500 mL of fluid. The catheter was then withdrawn. Procedure was terminated. She received 6 mg of morphine IM in her gluteus muscle for her discomfort. I sat with her for about 50 minutes and her pain was resolving as I left. She had bilateral equal breath sounds anteriorly. No air was aspirated into the vacuum bottle. I suspect that she has had this chronically trapped lung and the negative pressure vacuum bottle transmitted into the chest leading to her pleurisy. She will contact me if she has recurrence of her symptoms. I have encouraged her to contact me if there is anything unexpected that happens when she gets home. She has some hydrocodone at home she says for pain. Job ID: [id number]
[2019-01-14 16:07] LABS: BF Color Yellow; BF RBC Count - Manual 1150 /cumm; Body Fluid Source Pleural Fluid; Clarity Hazy (Clear); Tube # EDTA; WBC Background Count 0.01; WBC/NonHematic-Auto 717 /cumm
[2019-01-14 16:24] LABS: BF Segmented Neutrophils 4 %; Cell Count Non Hematic 10 %; Eosinophils 2 %; Lymphocytes 84 %
[2019-01-14 16:38] LABS: Pleural Fluid, Protein 3.1 g/dL
== END ==
LOC: SDC/OP 13:50
PROVIDERS: ATTEND Internal Medicine Critical Care Medicine
PROC: 0W993ZZ Drainage of Right Pleural Cavity, Percutaneous Approach (ICD-10-PCS; principal; 2019-01-14)
DX: C56.9 Malignant neoplasm of unspecified ovary (principal); J91.0 Malignant pleural effusion; Z91.09 Other allergy status, other than to drugs and biological substances; Z88.0 Allergy status to penicillin; Z88.1 Allergy status to other antibiotic agents; Z88.8 Allergy status to other drugs, medicaments and biological substances; Z79.899 Other long term (current) drug therapy
CPT/HCPCS: 32554; 36415; 80053; 82248; 82945; 83615; 84100; 84157; 84550; 85060; 86304; 87070; 87205; 88112; 88305; 89051; J2001; J2270

== ENCOUNTER 2019-01-15 15:20 | Emergency (ER) | payer MEDICARE, BC ==
[2019-01-15] MEDS ORDERED: EPINEPHrine 1 MG/ML AMP ONE (15:26)
[2019-01-15] MEDS ORDERED: methylPREDNISolone Sod Succ/PF 125 MG/2 ML VIAL ONE (15:26)
--- NOTE | 2019-01-15 15:52 | RAD ---
PORTABLE CHEST: 01/15/19 COMPARISON: 08/09/[address] of 08/30/18. HISTORY: Shortness of breath. Heart is obscured by large bilateral pleural effusions, somewhat larger than the left with associated atelectatic change. Left sided Mediport catheter is present. Parenchymal changes also seen in the ri ght upper lobe. I cannot exclude this represents some coexistent infiltrate. IMPRESSION: Large bilateral pleural effusions, right larger than left with bibasilar atelectasis. Also parenchyma l changes in the right upper lobe which could be related to the pulmonary edema change or possibly in filtrate given the asymmetry. POS: TPC
[2019-01-15] MEDS ORDERED: Heparin 1,000 UNITS/ML VIAL ONE (18:44)
== END 2019-01-15 18:56 | disposition home or self-care (01) ==
LOC: ERS 15:20
DX: L50.0 Allergic urticaria (principal); I10 Essential (primary) hypertension; Z79.899 Other long term (current) drug therapy
CPT/HCPCS: 71045; 93005; J0171; J1642; J1644; J2930

== ENCOUNTER 2019-02-01 09:42 | Inpatient (IN) | payer MEDICARE, BC ==
[2019-02-01 11:12] LABS: #Lymphocytes 0.4 thou/uL (1.20-3.40); #Monocytes 0.5 thou/uL (0.11-0.59); #Neutrophils 6.1 thou/uL (1.40-6.50); %Basophils 0.2 % (0.0-1.0); %Eosinophils 0.4 % (0.0-10.0); %Lymphocytes 5.6 % (21.0-51.0); %Monocytes 6.9 % (0.0-10.0); %Neutrophils 86.9 % (42.0-75.0); Mean Corpuscular HGB CONC 32.2 g/dL (32.0-36.0); Mean Corpuscular Hemoglobin 31.3 pg (27.0-31.0); Mean Corpuscular Volume 97.1 fL (78.0-98.0); Platelet Count 194 thou/uL (130-400); RBC Distribution Width 18.8 % (11.5-14.5)
--- NOTE | 2019-02-01 11:32 | RAD ---
PORTABLE CHEST: Date: 02/01/19 COMPARISON: 01/15/19. HISTORY: Worsening dyspnea. FINDINGS: There is increase in opacification over the right chest suggesting increasing right-sided effusion. T he left-sided pleural and parenchymal changes appear stable. Left-sided MediPort catheter is noted, u nchanged in position. IMPRESSION: Worsening opacification over the right hemithorax suggesting increasing right-sided effusion. POS: TPC
[2019-02-01 11:40] LABS: ALT (SGPT) 10 U/L (8-55); AST (SGOT) 17 U/L (5-34); Albumin 3.5 g/dL (3.4-4.8); Alkaline Phosphatase 53 U/L (40-150); BUN (Urea Nitrogen) 13 mg/dL (9.8-20.1); Bilirubin, Total 0.4 mg/dL (0.2-1.2); Calc. Creatinine Clearance 0 mL/min (70-130); Calcium 9.5 mg/dL (7.8-10.44); Estimated GFR-MDRD Greater than 90; Globulin 3.9 g/dL (2.4-3.5); Glucose 94 mg/dL (83-110); Protein, Total 7.4 g/dL (6.0-8.3)
[2019-02-01 11:50] LABS: Anion Gap 12 mmol/L (10-20); Carbon Dioxide 39 mmol/L (23-31); Chloride 86 mmol/L (98-107); Potassium 3.8 mmol/L (3.5-5.1); Sodium 133 mmol/L (136-145)
[2019-02-01] MEDS ORDERED: Ketamine 50 MG/ML (10ML VIAL) ONE ×2 (13:20→13:25)
[2019-02-01] MEDS ORDERED: PROPOFOL 0 ML ONE (13:20)
[2019-02-01] MEDS ORDERED: Fentanyl 100 MCG/2 ML VIAL ONE (13:24)
[2019-02-01] MEDS ORDERED: Midazolam HCl 2 mg/2 ml Vial ONE (13:24)
[2019-02-01] MEDS ORDERED: PROPOFOL 20 ML ONE (13:25)
[2019-02-01] MEDS ORDERED: Bupivacaine HCl 0.5%/Epinephrine 1:200,000/PF 30 ml Vial ONE (13:38)
--- NOTE | 2019-02-01 14:06 | CON ---
DATE OF CONSULTATION: HISTORY OF PRESENT ILLNESS: This is a 73-year-old female diagnosed with ovarian carcinoma about 4-1/2 years ago. She ultimately underwent a hysterectomy, omentectomy, and rectal resection with a left upper quadrant colostomy. She underwent chemotherapy for time at the [facility] and then transferred her care to Dr. Pickett, where she has continued to receive weekly chemotherapy, although, it has recently been changed and she is receiving chemotherapy every 3 weeks. She had a thoracentesis on the right side about [address] Gillespie and due to persistent dyspnea, she presented to the emergency room today. She is wearing home oxygen. Chest x-ray post 500 mL removal on the 3 weeks ago showed some fairly good aeration of the upper lobe. She was not able to have more than 500 mL withdrawn at that time due to discomfort. She has also had a left-sided pleural effusion that is more or less unchanged in the last 2 to 3 weeks and probably represents about 500 mL or thereabouts of fluid. PAST MEDICAL HISTORY: Otherwise significant only for hypertension. PAST SURGICAL HISTORY: Besides the above-noted procedure includes MediPort placement, then MediPort removal last summer for an infection. She has subsequently had another MediPort placed for her chemotherapy. MEDICATIONS: Include: 1. P.r.n. hydrocodone. 2. Atenolol. 3. Protonix. ALLERGIES: BENADRYL, ERYTHROMYCIN, PENICILLIN, AND ADHESIVES. PHYSICAL EXAMINATION: GENERAL: Alert, cooperative lady, elderly. VITAL SIGNS: Heart rate 85. NECK: No adenopathy. No carotid bruits. LUNGS: Diminished breath sounds on the right posteriorly. CARDIAC: No murmurs. ABDOMEN: Left upper quadrant ostomy. PLAN: Plan at this time is for attempted placement of a right-sided PleurX catheter to see if this will resolve enough of her dyspnea. If this alone does not suffice, consideration could be given to a left-sided catheter. Due to the fact that it does not appear that she has an extremely large effusion on the left at this time and due to the location of her ostomy, I think right-sided placement is probably the best initial approach, although, as discussed with the family, it is not a black and white issue at this time. Informed consent has been obtained. Job ID: [id number]
--- NOTE | 2019-02-01 15:56 | RAD ---
EXAM: CHEST ONE VIEW: 02/01/19 HISTORY: Post pleural catheter placement. COMPARISON: 02/01/19. FINDINGS: Right lower chest pleural catheter in place with a localized pneumothorax involving the lower mid lat eral right chest. Decreasing amount of pleural fluid from the prior study. Extensive vascular congest ion and some bilateral linear and interstitial parenchymal changes which appear to be more marked, pa rticularly in the left perihilar region than on the prior study. Stable left pleural effusion. IMPRESSION: Decrease in the right pleural effusion with placement of a right sided pleural tube with some persis tent loculated air in the right lower mid chest and costophrenic angle region. Extensive vascular con gestion and increased interstitial and linear changes bilaterally more prominent in the left perihila r region than on the prior study. Continued short term followup. POS: KETTY
[2019-02-01] MEDS ORDERED: Esmolol 100 MG/10 ML VIAL ONE (17:06)
[2019-02-01] MEDS ORDERED: Metoprolol Tartrate 5 MG/5 ML VIAL ONE (17:06)
[2019-02-01] MEDS ORDERED: Laxative Of Choice PO PRN (19:36)
[2019-02-01] MEDS: Morphine 4 MG/ML VIAL SLOW IVP PRN (20:38)
[2019-02-01] MEDS: HYDROcodone/Acetaminophen 10/325 mg Tablet PO PRN (22:42)
[2019-02-01 23:36] VITALS: BMI 23.8
[2019-02-02] MEDS: Morphine 4 MG/ML VIAL SLOW IVP PRN ×3 (02:37→15:42)
[2019-02-02] MEDS: Atenolol 25 MG TAB PO SCH (08:38)
[2019-02-02] MEDS: Enoxaparin Sodium 40 MG/0.4 ML SYRINGE SC SCH (08:39)
[2019-02-02] MEDS: HYDROcodone/Acetaminophen 10/325 mg Tablet PO PRN ×3 (08:42→20:29)
--- NOTE | 2019-02-02 10:42 | HP ---
DATE: 02/02/2019 HISTORY OF PRESENT ILLNESS: Ms. Granados is a very pleasant woman, who has metastatic ovarian cancer. She has few options left from a therapy standpoint. She has malignant bilateral effusions. She was seen in the office within the last week when we noted that her effusions were coming back, but she was asymptomatic at rest. I recommended admission for possible placement of a pleural drain. PAST MEDICAL HISTORY: Medical history is remarkable for hypertension and MediPort placement. She had a MediPort infection leading to remove of her MediPort and she had another MediPort replaced. She has reflux. MEDICATIONS: She is on only; 1. Atenolol. 2. Protonix. 3. She was on Lasix, but I told her to stop that. ALLERGIES: REPORTS ALLERGIES TO BENADRYL, ERYTHROMYCIN, AND PENICILLIN. FAMILY HISTORY: Negative for lung disease in early age. SOCIAL HISTORY: She has a very supportive family. She is a nonsmoker and nondrinker. REVIEW OF SYSTEMS: Ten points negative. PHYSICAL EXAMINATION: VITAL SIGNS: She is afebrile. Heart rate was in 80s and respiratory rate was in the 20s. I saw her after her treatment of her pleural drain. Blood pressure is in 120s. GENERAL: She says she was much more comfortable. She was waking up from anesthesia. HEENT: Pupils are equal. Sclerae are anicteric. NECK: Supple. LUNGS: Remarkable for distant breath sounds on the right. She has a space on the right after placement of PleurX catheter. HEART: Regular rhythm. ABDOMEN: Soft and nontender. EXTREMITIES: 2+ edema. NEURO: Nonfocal. IMPRESSION: Metastatic recurrent ovarian cancer. PLAN: 1. Supportive care. We will consider getting her hospice at home at discharge. 2. Anemia of chronic disease. Hemoglobin 11 on admission. 3. Metabolic alkalosis, likely secondary to diuretics. I again emphasized importance of stopping her Lasix as apparently she has continued to take Lasix at home because of her swelling. Dr. Krueger was consulted, who was gracious enough to take her to the OR for a PleurX drain. She will hopefully go home in 24 to 48 hours. Job ID: [id number] MTDD
--- NOTE | 2019-02-02 15:28 | CON ---
DATE OF CONSULTATION: REASON FOR CONSULTATION: Ovarian cancer. HISTORY OF PRESENT ILLNESS: Ms. Granados is a pleasant 73-year-old female, who has been undergoing chemotherapy for high-grade papillary carcinoma since 2013. She was on Gemzar and Avastin until CT scan in December showed progression. She received one and half doses of carboplatin with the last dose on January 15. Unfortunately, she had an allergic reaction and the treatment was stopped. She has been having progressive worsening shortness of breath and persistent low-grade fever secondary to malignancy. She is on continuous O2. She sleeps in a recliner, is unable to lay supine. She has seen Dr. Michael cohen. He admitted the patient for bilateral pleural effusions. Dr. Krueger has put in a PleurX catheter with initial output of 750 mL. The patient complains of continued shortness of breath. She remains in a tripod position in the bed. Denies any pain at this time. PAST MEDICAL HISTORY: 1. Metastatic ovarian cancer. 2. Hypertension. PAST SURGICAL HISTORY: 1. Tonsillectomy. 2. Debulking surgery in 2013. 3. MediPort placement. ALLERGIES: AMOXICILLIN, BENADRYL, AND ERYTHROMYCIN. HOME MEDICATIONS: 1. Atenolol 25 mg daily. 2. Carafate daily. 3. Hydrocodone p.r.n. 4. Lasix 20 mg daily. 5. Mag oxide daily. 6. Protonix 40 mg daily. 7. Potassium chloride 30 mEq daily. FAMILY HISTORY: No history of ovarian or breast cancer. SOCIAL HISTORY: , has two children. Lives with her spouse. 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 REVIEW OF SYSTEMS: A 10-point review of systems is negative except as noted in the HPI. PHYSICAL EXAMINATION: VITAL SIGNS: Temperature is 97.6, pulse is 81, respiratory rate 20, blood pressure is 131/60. She is 92% on 5 L. GENERAL: This is a chronically ill-appearing female, in mild respiratory distress. HEENT: Normocephalic and atraumatic. Pupils are equal and reactive to light. She has alopecia. NECK: Supple. CV: Regular rate and rhythm. LUNGS: Diminished on the right. She has PleurX catheter in place. ABDOMEN: Soft and nontender. Bowel sounds are positive. EXTREMITIES: She has 2+ bilateral lower extremity edema. SKIN: No rash. HEMATOLOGICAL: No petechiae or purpura. NEUROLOGICAL: Nonfocal. PSYCH: The patient is alert, oriented, and appropriate. PERTINENT LABORATORY DATA AND X-RAYS: Current WBC 7.0, hemoglobin 11.0, hematocrit 34.0, and platelet count a 194,000. 87% neutrophils, 6% lymphocytes. Sodium 133, potassium 3.8, chloride 86, CO2 is 39. BUN is 13, creatinine 0.63, lactic acid is 2.0, uric acid is 4, calcium 9.5, bilirubin is 0.2, AST 17, ALT is 10, alkaline phosphatase is 53, LDH is 197. Troponin is negative. Serum total protein is 7.4. Albumin 3.5, globulin 3.4. ASSESSMENT: Metastatic ovarian cancer with bilateral pleural effusions, status post PleurX catheter placement. DISCUSSION: The patient is no longer a candidate for carboplatin as she had a severe allergic reaction with last treatment. Her treatment options are limited. She remains short of breath despite drainage of her pleural effusions. We discussed at length focusing on quality of life and home with hospice. She would like to think about it and discuss with her daughter further. We will be happy to assist in any way we can. Thank you for the consult. Job ID: [id number]
[2019-02-02] MEDS ORDERED: Albuterol Sulfate 2.5 mg/3 ml Neb NEB SCH (19:00)
--- NOTE | 2019-02-02 19:52 | PRG ---
DATE OF SERVICE: 02/02/2019 SUBJECTIVE: Ms. Granados did well overnight. She is hoping that she will be less short of breath. I think she probably has interstitial spread of her tumor accounting for some of her lung stiffness and her shortness of breath sensation. Deconditioning is also part of this. OBJECTIVE: VITAL SIGNS: She is afebrile, heart rate is 78, respiratory rate is 18, oximetry is 93% on 5 L, blood pressure is 122/60. LUNGS: Free of wheezes. She wants to try nebulizer since her daughter has 1 at home to see if this helps. HEART: Regular rhythm. ABDOMEN: Soft. IMPRESSION: Advanced metastatic ovarian cancer. She is undecided about hospice and it is not clear to me whether or not more chemos planned. We will continue supportive care. Job ID: [id number]
[2019-02-03] MEDS: HYDROcodone/Acetaminophen 10/325 mg Tablet PO PRN ×3 (03:21→20:13)
[2019-02-03] MEDS: Enoxaparin Sodium 40 MG/0.4 ML SYRINGE SC SCH (08:25)
[2019-02-03] MEDS: Atenolol 25 MG TAB PO SCH (08:28)
--- NOTE | 2019-02-03 10:40 | RAD ---
PORTABLE CHEST: Date: 02/03/19 INDICATION: Pleural effusion follow-up. COMPARISON: 02/01/19. FINDINGS/IMPRESSION: Moderate right pleural effusion again noted. There appears to be a loculated pneumothorax in the righ t lung base. The right chest tube is coiled in the right lower chest, unchanged from yesterday. The a pparent loculated pneumothorax in the right lung base may be due to lack of expansion of the right lo wer lung after removal of the large effusion. Continued follow-up recommended. POS: KETTY
--- NOTE | 2019-02-03 14:30 | PRG ---
DATE OF SERVICE: 02/03/2019 SUBJECTIVE: Arlene Granados was complaining shortness of breath early this morning. Chest radiograph did not show significant reaccumulation of pleural fluid on the right. The lung is still not inflated. I am sure it is surrounded by tumor. OBJECTIVE: VITAL SIGNS: She is afebrile. Heart rates in the 70s, respiratory rate is 20, oximetry is 91, and blood pressure is 112/83. LUNGS: Clear. HEART: Regular rhythm. ABDOMEN: Soft. Apparently, there are no further chemotherapeutic options for Ms. Granados. We are in the process of converting her from [facility] to [facility]. Hopefully, she will be ready for discharge in the morning. IMPRESSION: 1. Metastatic ovarian cancer. 2. Malignant pleural effusions. 3. Deconditioning. 4. Metabolic alkalosis secondary to Lasix use prior to admission. She is not eating or drinking much, so I would not restart diuretics even if her ankles are swollen. We will re-evaluate her in the morning. Hopefully, we can get her a hospital bed, bedside commode, oxygen supplies, and everything arrange for the house. Job ID: [id number]
[2019-02-03] MEDS: Morphine 4 MG/ML VIAL SLOW IVP PRN ×3 (15:15→23:54)
[2019-02-03 20:07] VITALS: TEMP 98.2
[2019-02-04] MEDS: HYDROcodone/Acetaminophen 10/325 mg Tablet PO PRN (01:04)
[2019-02-04] MEDS: Morphine 4 MG/ML VIAL SLOW IVP PRN ×5 (05:31→20:21)
--- NOTE | 2019-02-04 08:26 | OP ---
DATE OF PROCEDURE: 02/01/2019 PREOPERATIVE DIAGNOSIS: Metastatic ovarian cancer with bilateral pleural effusions and severe dyspnea. PROCEDURE PERFORMED: Right PleurX catheter. ANESTHESIA: IV sedation with assisted ventilation and local. DESCRIPTION OF PROCEDURE: After the patient was placed on the operating bed in the sitting position, she was given sedation, placed more supine, rotated slightly to the left and prepped and draped. During that portion of the procedure, she required some assisted ventilation with the mask. 1% lidocaine was used to infiltrate the skin along the left posterior axillary line and then some 0.5% Marcaine with epinephrine. Needle was inserted. Clear fluid obtained and a wire was then advanced. Following this, a tunnel was created with a separate stab incision and the catheter and cuff were brought through the incision and the cuff left near the skin. The dilator and then Peel-Away sheath were introduced and the catheter was then advanced over the Peel-Away sheath ensuring that it lay with a nice comfortable band. About 100 mL of pleural fluid was lost during this and then about 750 mL was evacuated prior to the fluid becoming blood tinged, at which time, it was immediately stopped from drainage. The patient was to be taken to the recovery room after securing the incisions and tube. Job ID: [id number]
[2019-02-04] MEDS: Atenolol 25 MG TAB PO SCH (10:16)
[2019-02-04] MEDS: Enoxaparin Sodium 40 MG/0.4 ML SYRINGE SC SCH (10:17)
[2019-02-04 12:49] VITALS: BP 127/60
--- NOTE | 2019-02-04 13:43 | PQF ---
CORRINA CHRISTOPHER THOMAS MD [id number] ONC-132 [id number] CLINICAL DOCUMENTATION IMPROVEMENT CLARIFICATION FORM: ICD-10 Updated PLEASE DO AN ADDENDUM TO THE PROGRESS NOTE WITH ANY DOCUMENTATION UPDATES OR ADDITIONS AND CARRY THROUGH TO DC SUMMARY. THANK YOU. DATE: 02/04 ATTN: DR. DANTE DAWN Please exercise your independent, professional judgment in responding to the clarification form. Clinical indicators are provided on the bottom of this form for your review. Please check appropriate box(s): [ ] Acute On Chronic Respiratory Failure: [ ] with Hypoxia [ ] with Hypercapnia [ ] Acute Respiratory Failure due to: (etiology) [ ] Chronic Respiratory Failure only [ ] with Hypoxia [ ] with Hypercapnia [ ] Other diagnosis [ ] Unable to determine In addition, please specify: Present on Admission (POA): [ ] Yes [ ] No [ ] Unable to determine For continuity of documentation, please document condition throughout progress notes and discharge summary. Thank You. CLINICAL INDICATORS - SIGNS / SYMPTOMS / LABS ER PRESENTATION 02/01: 02 SATS ON 3L 96%, SHORTNESS OF BREATH CV SURGEON CON 02/01: HX OF PRESENT ILLNESS: ...SHE IS WEARING HOME OXYGEN ONCOLOGY CONSULT 02/01: HX OF PRESENT ILLNESS: ...SHE IS ON CONTINUOUS 02. ...ADMITTED FOR BILATERAL PLEURAL EFFUSIONS. THE PT COMPLAINS OF CONTINUED SOB. SHE REMAINS IN TRIPOD POSITION IN THE BED. PHYSICAL EXAM: VS: SHE IS 92 % ON 5L PN 02/02 (LÓPEZ): OBJECTIVE: OXIMETRY IS 93% ON 5L PN 02/03 (LÓPEZ): OBJECTIVE: OXIMETRY IS 91% VS: 02 FLOW RATE: 5L NC (02/01-02/03); 6L NC (02/03 - PRESENT) 02 SATS: 87-94 (02/01 - PRESENT) RISKS: MALIGNANT B PLEURAL EFFUSIONS CONTINUOUS HOME 02 (3L NC AT ER PRESENTATION 02/01) METASTATIC OVARIAN CANCER TREATMENT: PLEURX CATHETER PLACEMENT (02/01) SUPPLEMENTAL OXYGEN (5L NC 02/01 - ; 6L NC 02/03 - PRESENT) THANK YOU! Laura (This form is maintained as a part of the permanent medical record) 2014 [employer]. All Rights Reserved Laura Flores RN, BSN [email or web address] Office: [phone] Acute on chronic respiratory failure with hypoxia on home o2 prior to admission KRYSTIN
[2019-02-04] MEDS: Ondansetron PF 4 MG/2 ML Vial SLOW IVP PRN ×2 (14:24→19:31)
--- NOTE | 2019-02-04 14:56 | DIS ---
DATE OF ADMISSION: 02/01/2019 DATE OF DISCHARGE: 02/04/2019 SUBJECTIVE: Ms. Granados has not done well overnight. Family realizes now that they can take care of her at home. OBJECTIVE: VITAL SIGNS: This morning, her heart rate is 95, blood pressure 123/65, respiratory rate is 20, oximetry is 97% on a cannula. LUNGS: Unchanged. HEART: Unchanged. ABDOMEN: Unchanged. IMPRESSION: Metastatic ovarian cancer with no therapeutic options left. PLAN: Inpatient hospice. DISCHARGE SUMMARY: Please see history and physical. Briefly, Ms. Granados presented with shortness of breath. She had large bilateral effusions. She had a PleurX catheter placed the same day that she presented to the emergency room and 700 mL of malignant fluid was drained from her right chest. She has had no rapid recurrence of this fluid, but continues to get weaker, more short of breath and has reached a point where it takes 2-3 people just to move her out of bed to a bedside commode. It is felt that she is no longer a candidate to go home with hospice, so she is being discharged to inpatient hospice care once she is approved. She can continue nebulizer treatments at hospice as well as her comfort medications. Job ID: [id number]
--- NOTE | 2019-02-06 07:32 | PQF ---
CORRINA CHRISTOPHER THOMAS MD [id number] ONC-[id number] CLINICAL DOCUMENTATION IMPROVEMENT CLARIFICATION FORM: ICD-10 Updated PLEASE DO AN ADDENDUM TO THE PROGRESS NOTE WITH ANY DOCUMENTATION UPDATES OR ADDITIONS AND CARRY THROUGH TO DC SUMMARY. THANK YOU. DATE: 02/04 ATTN: DR. DANTE DAWN Please exercise your independent, professional judgment in responding to the clarification form. Clinical indicators are provided on the bottom of this form for your review. Please check appropriate box(s): [ ] Acute On Chronic Respiratory Failure: [ ] with Hypoxia [ ] with Hypercapnia [ ] Acute Respiratory Failure due to: (etiology) [ ] Chronic Respiratory Failure only [ ] with Hypoxia [ ] with Hypercapnia [ ] Other diagnosis [ ] Unable to determine In addition, please specify: Present on Admission (POA): [ ] Yes [ ] No [ ] Unable to determine For continuity of documentation, please document condition throughout progress notes and discharge summary. Thank You. CLINICAL INDICATORS - SIGNS / SYMPTOMS / LABS ER PRESENTATION 02/01: 02 SATS ON 3L 96%, SHORTNESS OF BREATH CV SURGEON CON 02/01: HX OF PRESENT ILLNESS: ...SHE IS WEARING HOME OXYGEN ONCOLOGY CONSULT 02/01: HX OF PRESENT ILLNESS: ...SHE IS ON CONTINUOUS 02. ...ADMITTED FOR BILATERAL PLEURAL EFFUSIONS. THE PT COMPLAINS OF CONTINUED SOB. SHE REMAINS IN TRIPOD POSITION IN THE BED. PHYSICAL EXAM: VS: SHE IS 92 % ON 5L PN 02/02 (LÓPEZ): OBJECTIVE: OXIMETRY IS 93% ON 5L PN 02/03 (LÓPEZ): OBJECTIVE: OXIMETRY IS 91% VS: 02 FLOW RATE: 5L NC (02/01-02/03); 6L NC (02/03 - PRESENT) 02 SATS: 87-94 (02/01 - PRESENT) RISKS: MALIGNANT B PLEURAL EFFUSIONS CONTINUOUS HOME 02 (3L NC) METASTATIC OVARIAN CANCER TREATMENT: PLEURX CATHETER PLACEMENT (02/01) SUPPLEMENTAL OXYGEN (5L NC 02/01 - ; 6L NC 02/03 - PRESENT) THANK YOU! Laura (This form is maintained as a part of the permanent medical record) 2014 [employer]. All Rights Reserved Laura Flores, RN, BSN [email or web address] Office: [phone] KRYSTIN
--- NOTE | 2019-02-09 18:20 | EKG ---
Test Reason : Blood Pressure : / mmHG Vent. Rate : 073 BPM Atrial Rate : 073 BPM P-R Int : 156 ms QRS Dur : 066 ms QT Int : 342 ms P-R-T Axes : 032 012 010 degrees QTc Int : 376 ms Normal sinus rhythm Low voltage QRS Inferior infarct , age undetermined Cannot rule out Anterior infarct , age undetermined Abnormal ECG Confirmed by RADHA HARRIS, JEFF Bolanos ([id number]), commissioning editor EDMUND MARQUEZ ([id number]) on 02/09/2019 6:20:23 PM Referred By: RADHA Confirmed By:JEFF GARCIA MD
== END 2019-02-04 21:00 | disposition hospice, inpatient (51) | DRG 754 ==
LOC: ERS 09:42 → SDC/OP 13:46 → ONC 18:36 → OBSVTOIN 18:36
PROVIDERS: ADMIT Internal Medicine Critical Care Medicine; ATTEND Internal Medicine Critical Care Medicine
PROC: 0B9N30Z Drainage of Right Pleura with Drainage Device, Percutaneous Approach (ICD-10-PCS; principal; 2019-02-01)
DX: C56.9 Malignant neoplasm of unspecified ovary (principal); J96.20 Acute and chronic respiratory failure, unspecified whether with hypoxia or hypercapnia; E87.3 Alkalosis; J91.0 Malignant pleural effusion; I10 Essential (primary) hypertension; Z51.5 Encounter for palliative care; D63.0 Anemia in neoplastic disease; T50.1X5A Adverse effect of loop [high-ceiling] diuretics, initial encounter; Z88.1 Allergy status to other antibiotic agents; Z88.0 Allergy status to penicillin; Z88.8 Allergy status to other drugs, medicaments and biological substances; Z90.89 Acquired absence of other organs
CPT/HCPCS: 71045; 80053; 83880; 84484; 85025; 93005; 94640; C1729; J0670; J1650; J2250; J2270; J2405; J2704; J3010; J3490; J7611; J7620